=== PATIENT | female | born 1990 | race Caucasian/White ===

== ENCOUNTER 2018-08-04 18:10 | Outpatient (CLI) | payer MEDICAID, SELFPAY ==
[2018-08-04 19:51] VITALS: BMI 29.7
--- NOTE | 2018-08-05 03:23 | OB.TRI.NOTE ---
- Problem List (1) Irregular contractions Status: Acute (2) False labor after 37 completed weeks of gestation Status: Acute History of Present Illness Date of Service: 08/04/18 Was patient seen by the physician?: Yes Reason For Visit: RULE OUT Date of Service: 08/04/18 Final YOLY Source: LMP Gestational age: 38w0d History of Present Illness: 28 year ol at 38w0d, EDD110/18/17 Presented to L&D with uterine contractions that started this am after office visit. Membranes stripped during visit at 1030 am and contractions have become stronger since that time. Denies any LOF or vaginal bleeding. Good movement. Allergies amoxicillin [Amoxicillin] Allergy (Verified 08/04/18 19:58) Hives Cephalosporins Allergy (Verified 04/11/15 15:10) Itching loratadine [From Claritin] Allergy (Verified 08/04/18 19:58) Rash Penicillins Allergy (Verified 08/04/18 19:58) Hives Physical Exam Estimated gestational size: Appropriate for gestational size Presentation: Cephalic Cervix Dilation (cm): 4.5 Station: -1 Effacement (%): 50 NST - FHR Rate Baby A Baseline: 140 Variability:: Moderate Accelerations:: 15 x 15 Decelerations:: None NST Reactive:: Yes Uterine Activity:: Every 5-10 minutes, irregular, mild to palpation.
== END 2018-08-04 20:05 | disposition home or self-care (01) ==
LOC: WPOUT 19:11 → WP 19:25
PROVIDERS: Family Provider Internal Medicine; PCP Internal Medicine; Referring Provider Advanced Practice Midwife; Visit Provider Advanced Practice Midwife
DX: O47.1 False labor at or after 37 completed weeks of gestation (principal); Z3A.37 37 weeks gestation of pregnancy
CPT/HCPCS: 59025; 59050; 99218; G0378

== ENCOUNTER 2018-08-05 10:10 | Inpatient (IN) | payer MEDICAID, SELFPAY ==
[2018-08-05 10:23] VITALS: BMI 28.5
[2018-08-05] MEDS: Lactated Ringers 1,000 ML 50 ML IV ×2 (10:45→11:49)
[2018-08-05 10:50] LABS: Hematocrit 38.3 % (37-47); Hemoglobin 12.7 g/dl (12.0-15.0); Mean Corp Hgb Conc 33.2 g/gl (32-36); Mean Corpuscular Hgb 28.3 pg (27.0-32.0); Mean Corpuscular Volume 85.3 fL (81-99); Mean Platelet Vol. 10.1 fl (6.2-12.0); Platelet Count 298 K/mm3 (150-450); RBC Distribution Width CV 14.6 % (11.6-14.6); RBC Distribution Width SD 44.3 fl (35.1-43.9); Red Blood Count 4.49 M/mm3 (4.2-5.4); Scan Indicated on CBC? Y/N NO; White Blood Count 12.6 K/mm3 (4.4-11.0)
[2018-08-05] MEDS: Oxytocin 30 units/NS 500 ml 30 UNITS/500 ML IV.SOLN IV (11:37)
[2018-08-05] MEDS: fentaNYL-bupivacaine (epidural) 100 ML BAG EPIDURAL (12:31)
--- NOTE | 2018-08-05 13:03 | PCM.HP.OB ---
- Problem List (1) Irregular contractions Status: Acute (2) IUGR (intrauterine growth restriction) Status: Acute History Date of Admission: 04/10/15 Final YOLY: 08/18/18 Final YOLY Source: LMP Gestational age: 38 Weeks and 1 Days History of this : This is a 28 year-old, @ 38.1 wks c/o contractions - more intense- denies vaginal bleeding or LOF. pt has h/o IUGR < 5% most recent EFW 4lb 11oz on 07/20/18. Pt has had NSTs weekly and BPP weekly- reassuring status. Last BPP showed MARTÍN 6cm- recommendation by M Dr. Benoit for Delivery between 38-39 weeks. Pt in early labor but plan to keep her for augmentation with pitocin and AROM. Allergies amoxicillin [Amoxicillin] Allergy (Verified 08/04/18 19:58) Hives Cephalosporins Allergy (Verified 04/11/15 15:10) Itching loratadine [From Claritin] Allergy (Verified 08/04/18 19:58) Rash Penicillins Allergy (Verified 08/04/18 19:58) Hives Home Medications: Home Medications Vits [Prenatabs FA] 1 tablet PO DAILY 03/29/15 Famotidine [Pepcid] 20 mg PO DAILY 08/04/18 Fluoxetine [Prozac] 10 mg PO DAILY 08/04/18 busPIRone [Buspar] 5 mg PO DAILY 08/04/18 Smoking Status: Never smoker Alcohol: None Number of Fetus(es): 1 Heart Tracin mod pee, + accels no decels. - reactive category 1 TOCO Analysis: q2-4 History Past Pregnancies: Past Pregnancies Delivery Date Name GA/Weeks Outcome Route Weight Infant Gender Labor Length Anesthesia Delivery Location Provider FOB Labs: GBS neg, A+, RUB imm, Syphilis neg, HEP B neg, HIV neg, Expected Infant Delivery Method: Spontaneous Vaginal Review of Systems Constitutional: Denies: Anorexia Cardiovascular: Denies: Chest Pain Respiratory: Denies: Cough Gastrointestinal: Reports: - - contractions Physical Exam General: Alert, Oriented x3 Abdomen: Soft, Non Tender, Gravid Neurological: Cranial nerves II-XII grossly intact Estimated gestational size: Small for gestational age Presentation: Cephalic Cervix Dilation (cm): 5.5 Station: -2 Effacement (%): 75 Assessment/Plan All Active Problems Irregular contractions (Acute) False labor after 37 completed weeks of gestation (Acute) IUGR (intrauterine growth restriction) (Acute) This is a 28 year-old, G 5P4 @ 38.1 wks IUGR, MARTÍN 6cm- in early labor- plan for Augmentation with pitocin and arom. 1) admit to L&D 2) monitor FHR/toco 3) IUPC 4) Pitocin 5) epidural for pain mgmt 6) anticipate
[2018-08-05] MEDS: Ondansetron 4 MG/2 ML Vial IV (13:31)
--- NOTE | 2018-08-05 14:17 | PLAC_PTH ---
PATIENT: SANFORD SIN LOC: [facility] U#:[id number] AGE/SX: 28/ ROOM: WP010 RE08/05/[address]: Dr. Cammy Bush, MDDOB: 1990 BED: 1 DIS: 08/07/2018 SPEC #: [id number] RECD: 08/05/18 14:59 STATUS: RADHIKA SERGEY #: [id number] MADDY: 08/05/18 14:[address]: Cammy Bush DEPT: SURGICAL PATHOLOGY RECD BY: Sterling Dubon ENTERED: 08/07/18 10:07 SP TYPE: PLACENTA OTHR DR: Dr. Karlee Pack MD Tissues: Placenta, NOS Procedures: Surgery Specimen Level V HEADER OPERATION: Vaginal delivery PRE-OP DIAGNOSIS: Vaginal delivery TISSUE SUBMITTED: Placenta MICROSCOPIC DIAGNOSIS Placenta: Placental disc - third trimester placenta (224 gm). - Focal area of intraparenchymal hemorrhage and infarction (6 cm in greatest dimension). - Focal area of intraparenchymal hemorrhage (0.5 cm in greatest dimension). Membranes - acute chorioamnionitis. Umbilical cord - three blood vessels and no pathologic diagnosis. SJ:matilde 08/08/18 MICROSCOPIC DESCRIPTION Slides are reviewed. GROSS DESCRIPTION SPECIMEN: PLACENTA / CLINICAL INFORMATION: A. Weight: 2.029 kg B. Gestational Age: 38 weeks C. Sex: Female PLACENTAL WEIGHT (POST FIXATION): 224 gm PLACENTAL DIMENSIONS: 12 x 10 x 3 cm PLACENTAL SHAPE: Usual ovoid PLACENTAL WEIGHT FOR GESTATIONAL AGE: <10th percentile MEMBRANES - Present A. Insertion: Marginal B. Site of rupture from edge: 7 cm from edge of placental disc C. Color of membrane: Mccloud-espinoza D. Abnormalities: None UMBILICAL CORD - Present A. Color: Mccloud-espinoza B. Insertion: Paracentral C. Length: 20 cm D. Diameter: 1 cm E. Number of vessels: Three F. Abnormalities: None PLACENTAL DISC - Present A. Color of surface: Mccloud-espinoza B. surface abnormalities: None C. Maternal cotyledons: Intact with minimal tears D. Attached retro placental clot: No clot E. Cut surface: Dark red and spongy F. Lesions: Sections reveal a mccloud, indurated area measuring 6 x 2.5 x 1.5 cm and one smaller mccloud, indurated area measuring 0.5 cm in greatest dimension. G. Separate clot: Absent SECTIONS SUBMITTED: 1. Membrane roll 2. Cord, maternal end, larger lesion 3. Cord, end, larger lesion 4. Placental disc, and maternal surfaces, larger lesion 5. Placental disc, and maternal surfaces, smaller lesion 6. Placental disc, and maternal surfaces IRWIN:matilde 08/07/18 TC:2 CPT: 48759
[2018-08-05] MEDS: Oxytocin 30 units/NS 500 ml 30 UNITS/500 ML IV.SOLN 334 UNITS IV (14:20)
--- NOTE | 2018-08-05 14:28 | PCM.OB.VAG ---
- Problem List (1) Irregular contractions Status: Acute (2) IUGR (intrauterine growth restriction) Status: Acute Vaginal Delivery Maternal Presentation: - - early labor- augmentation with pitocin and AROM Medical Reason for Induction: - - IUGR, MARTÍN 6cm Amniotic Membrane Rupture Type: Artificial Amniotic Fluid Description: Clear - scant fluid Final YOLY: 08/18/18 Gestational age: 38 Weeks and 1 Days Date of Procedure: 08/05/18 Pre-Operative Diagnosis: IUGR, Term gestation Post-Operative Diagnosis: same, Live female Surgery/ Procedure Performed: Spontaneous Vaginal Delivery Type of Anesthesia: Epidural Description of Procedure: of live female - born without complications. Delayed cord clamping performed. At time of delivery soft swelling noted on infant left lower back near sacrum, anus present but there is a dimple noted cephalid to that. PEDS asked to come for initial evaluation- will contact NICU at [facility] for further suggestions. Presentation: Vertex Placental Delivery Description: Spontaneous - placenta small- intact Placenta Disposition: Routine to Lab Cord Vessel Description: 3 Vessels Nuchal Cord Compression: Without compression Cord Entanglement: None Drain: Maldonado to straight drain Estimated Blood Loss: 100 A gender: Female (1 minute): 9 (5 minute): 9 Episiotomy Description: None Laceration: None Medications given after delivery: IV Pitocin Complications: None
[2018-08-05] MEDS: Oxytocin 30 units/NS 500 ml 30 UNITS/500 ML IV.SOLN 167 UNITS IV (14:50)
[2018-08-05] MEDS: Acetaminophen 500 MG Tablet 1000 MG PO (18:04)
[2018-08-05 20:30] VITALS: BP 117/74; PULSE 75; RESP 16; TEMP 37.1
[2018-08-05] MEDS: Ibuprofen 600 MG Tablet PO (22:46)
[2018-08-06 01:00] VITALS: BP 108/57; PULSE 79; RESP 16; TEMP 36.3
[2018-08-06 04:30] VITALS: BP 109/65; PULSE 73; RESP 16; TEMP 36.6
[2018-08-06 08:10] VITALS: BP 112/80; PULSE 100; RESP 18; TEMP 36.4
--- NOTE | 2018-08-06 08:16 | PCM.PN.OB ---
Patient Problems: Active and Suspected Problems IUGR (intrauterine growth restriction) (Acute) Subjective: pt seen at bedside, doing well. pt reports good pain control. lochia mild. has heartburn- requesting pepcid again. - Physical Exam General: Alert, Oriented x3 Abdomen: Soft, Non Tender, - - fundus firm Vital Signs Temp Pulse Resp BP 97.8 F 73 16 109/65 08/06/18 04:30 08/06/18 04:30 08/06/18 04:30 08/06/18 04:30 Weight: 70.76 kg Body Mass Index (BMI) 28.5 Intake and Output for Last 24 Hours 08/04/18 08/05/18 08/06/18 23:59 23:59 23:59 Intake Total 2071 / 2071 Output Total 1050 / 1050 500 / 500 Balance 1022 / 1022 -500 / -500 Laboratory Tests Past 24 Hrs 08/05/18 08/05/18 10:35 10:35 WBC 12.6 H RBC 4.49 Hgb 12.7 Hct 38.3 MCV 85.3 MCH 28.3 MCHC 33.2 RDW 14.6 RDW Differential 44.3 H Plt Count 298 MPV 10.1 Blood Type A POSITIVE Antibody Screen NEGATIVE Medical Necessity - Tobacco Use Smoking Status: Never smoker Assessment/Plan All Active Problems Irregular contractions (Acute) False labor after 37 completed weeks of gestation (Acute) IUGR (intrauterine growth restriction) (Acute) PPD#1, doing well 1) baby in [facility] for low blood sugars. infant will be transfered to [facility] for swelling in Lower back once mom is discharged. reviewed will discharge mom tomorrow and possible hotel if needed. 2) routine care 3) pain mgmt 4) buspirone ordered per patient request 5) Pepcid
[2018-08-06] MEDS: Ibuprofen 600 MG Tablet PO (08:17)
--- NOTE | 2018-08-06 08:19 | PN.OBGYN_ITS ---
Patient Problems: Active and Suspected Problems IUGR (intrauterine growth restriction) (Acute) Subjective: pt seen at bedside, doing well. pt reports good pain control. lochia mild. has heartburn- requesting pepcid again. - Physical Exam General: Alert, Oriented x3 Abdomen: Soft, Non Tender, - - fundus firm Vital Signs Temp Pulse Resp BP 97.8 F 73 16 109/65 08/06/18 04:30 08/06/18 04:30 08/06/18 04:30 08/06/18 04:30 Weight: 70.76 kg Body Mass Index (BMI) 28.5 Intake and Output for Last 24 Hours 08/04/18 08/05/18 08/06/18 23:59 23:59 23:59 Intake Total 2071 / 2071 Output Total 1050 / 1050 500 / 500 Balance 1022 / 1022 -500 / -500 Laboratory Tests Past 24 Hrs 08/05/18 08/05/18 10:35 10:35 WBC 12.6 H RBC 4.49 Hgb 12.7 Hct 38.3 MCV 85.3 MCH 28.3 MCHC 33.2 RDW 14.6 RDW Differential 44.3 H Plt Count 298 MPV 10.1 Blood Type A POSITIVE Antibody Screen NEGATIVE Medical Necessity - Tobacco Use Smoking Status: Never smoker Assessment/Plan All Active Problems Irregular contractions (Acute) False labor after 37 completed weeks of gestation (Acute) IUGR (intrauterine growth restriction) (Acute) PPD#1, doing well 1) baby in [facility] for low blood sugars. infant will be transfered to [facility] for swelling in Lower back once mom is discharged. arelis andrews will discharge mom tomorrow and possible hotel if needed. 2) routine care 3) pain mgmt 4) buspirone ordered per patient request 5) Pepcid
--- NOTE | 2018-08-06 08:21 | DCINST_ITS ---
Discharge Diet: No Restrictions Discharge Activity: Return to Normal Activity, May not drive while taking narcotic pain medications., May Shower May resume sexual activity in: 4-6 weeks Additional Activity Instructions:: Nothing in the vagina for 4-6 weeks. You may return to work/school in 6 weeks. Call your doctor if your incision/area has: Continuous Slow Oozing, Sudden Increased Bleeding, Increased Pain/ Swelling, Increased Redness, Foul Smelling Discharge Additional Instructions: If you experience any of the following, contact your healthcare provider. * Bleeding that soaks a pad every hour for 2 hours * Fever 100.4 or higher * Unrelieved incision or abdominal pain * Swelling, redness, discharge or bleeding from your incision or episiotomy site * Your incision begins to separate * Problems urinating (including inability to urinate or burning while urinating). * Visual changes * Severe headache * Flu-like symptoms * Pain or redness in one of both of your breasts * Pain, warmth, tenderness or swelling in your legs, especially the calf area * Frequent nausea and vomiting * Symptoms of depression or anxiety If you experience any of the following, call 911 or go to the nearest Emergency Room. * Chest pain * Problems breathing * Seizure activity * Partial or complete paralysis of a body part, slurred speech, weakness or drooping of the face, or a sudden inability to walk or hold your balance Allergies/Adverse Reactions: Allergies amoxicillin [Amoxicillin] Allergy (Verified 08/04/18 19:58) Hives Cephalosporins Allergy (Verified 04/11/15 15:10) Itching loratadine [From Claritin] Allergy (Verified 08/04/18 19:58) Rash Penicillins Allergy (Verified 08/04/18 19:58) Hives Medications to take at Discharge Vits [Prenatabs FA ] 1 tablet PO DAILY 03/29/15 Famotidine [Pepcid] 20 mg PO DAILY 08/04/18 Fluoxetine [Prozac] 10 mg PO DAILY 08/04/18 busPIRone [Buspar] 5 mg PO DAILY 08/04/18 Famotidine [Pepcid] 20 mg PO BID tablet 08/06/18 Fluoxetine [Prozac] 10 mg PO DAILY capsule 08/06/18 Ibuprofen 600 mg PO 4X/DAY PRN PRN #30 tablet 08/06/18 busPIRone [Buspar] 5 mg PO TID PRN PRN tablet 08/06/18 The following prescriptions were given: Ibuprofen 600 mg PO 4X/DAY PRN PRN #30 tablet PRN Reason: Pain When: Call to make an appointment with your doctor in 6 weeks. If you had elevated Blood Pressure or 4th degree laceration you will need to be seen in 2 weeks. Primary Care Physician: Karlee Pack MD [Primary Care Provider] - Test Results: Test results from this visit will be discussed in further detail at your follow- up appointment, if applicable.
[2018-08-06] MEDS: FLUoxetine 10 MG Capsule PO (10:29)
[2018-08-06] MEDS: Famotidine 20 MG Tablet PO (10:30)
[2018-08-06] MEDS: busPIRone 5 MG Tablet PO (10:30)
[2018-08-06] MEDS: Acetaminophen 500 MG Tablet 1000 MG PO (10:34)
[2018-08-06 13:20] VITALS: BP 122/85; PULSE 80; RESP 18; TEMP 36.5
[2018-08-06 18:48] VITALS: BP 122/85; PULSE 80; RESP 18; TEMP 36.6
[2018-08-06 20:07] VITALS: BP 110/73; PULSE 89; RESP 16; TEMP 36.4; O2SAT 98
[2018-08-07] MEDS: Famotidine 20 MG Tablet PO ×2 (00:30→10:30)
[2018-08-07 00:36] VITALS: BP 116/70; PULSE 84; RESP 17; TEMP 36.5; O2SAT 98
[2018-08-07 04:22] VITALS: BP 104/63; PULSE 82; RESP 17; TEMP 36.9; O2SAT 97
[2018-08-07] MEDS: Ibuprofen 600 MG Tablet PO (04:26)
[2018-08-07 08:25] VITALS: BP 117/72; PULSE 68; RESP 16; TEMP 37.1; O2SAT 97
[2018-08-07] MEDS: FLUoxetine 10 MG Capsule PO (10:30)
--- NOTE | 2018-08-07 12:39 | PCM.PN.OB ---
Patient Problems: Active and Suspected Problems IUGR (intrauterine growth restriction) (Acute) Subjective: Doing well per patient and nursing staff. Ambulating and taking PO without difficulty. Voiding and passing flatus. Baby in SCN, and providing supplemental feedings due to low BS. Unsure of baby transfer at this time. Patient denies any increased vaginal bleeding or clots, pain, chest pain, shortness of breath or leg pain. Having lower back pain at epidural site, using heating pad. Planning to go to hotel status. - Physical Exam General: Alert, Oriented x3, Cooperative HEENT: Atraumatic, Normocephalic Lungs: Clear to auscultation, Normal air movement, No rhonchi, No wheeze Cardiovascular: Regular rate, Regular Rhythm, No murmurs Abdomen: Bowel Sounds Present, Soft, - - appropriately tender. Fundus firm 2 below U Extremities: No edema, - - Dallas's negative bilaterally Psych/Mental Status: Normal Affect, Appropriate Vital Signs Temp Pulse Resp BP Pulse Ox 98.8 F 68 16 117/72 97 08/07/18 08:25 08/07/18 08:25 08/07/18 08:25 08/07/18 08:25 08/07/18 08:25 Oxygen Delivery Method Room Air Weight: 156 lb Body Mass Index (BMI) 28.5 Intake and Output for Last 24 Hours 08/05/18 08/06/18 08/07/18 23:59 23:59 23:59 Intake Total 2071 / 2071 Output Total 1050 / 1050 500 / 500 Balance 1022 / 1022 -500 / -500 Medical Necessity - Tobacco Use Smoking Status: Never smoker Assessment/Plan All Active Problems Irregular contractions (Acute) False labor after 37 completed weeks of gestation (Acute) IUGR (intrauterine growth restriction) (Acute) A: PPD #2 P: 1)Awaiting U/S of and possible transfer to [facility] for care. 2)Will discharge patient to [facility] status at this time. 3)Motrin for pain. 4) Follow up in 6 weeks for visit. Routine PP and instructions given.
--- NOTE | 2018-08-07 12:43 | PN.OBGYN_ITS ---
Patient Problems: Active and Suspected Problems IUGR (intrauterine growth restriction) (Acute) Subjective: Doing well per patient and nursing staff. Ambulating and taking PO without difficulty. Voiding and passing flatus. Baby in SCN, and providing supplemental feedings due to low BS. Unsure of baby transfer at this time. Patient denies any increased vaginal bleeding or clots, pain, chest pain, shortness of breath or leg pain. Having lower back pain at epidural site, using heating pad. Planning to go to hotel status. - Physical Exam General: Alert, Oriented x3, Cooperative HEENT: Atraumatic, Normocephalic Lungs: Clear to auscultation, Normal air movement, No rhonchi, No wheeze Cardiovascular: Regular rate, Regular Rhythm, No murmurs Abdomen: Bowel Sounds Present, Soft, - - appropriately tender. Fundus firm 2 below U Extremities: No edema, - - Dallas's negative bilaterally Psych/Mental Status: Normal Affect, Appropriate Vital Signs Temp Pulse Resp BP Pulse Ox 98.8 F 68 16 117/72 97 08/07/18 08:25 08/07/18 08:25 08/07/18 08:25 08/07/18 08:25 08/07/18 08:25 Oxygen Delivery Method Room Air Weight: 156 lb Body Mass Index (BMI) 28.5 Intake and Output for Last 24 Hours 08/05/18 08/06/18 08/07/18 23:59 23:59 23:59 Intake Total 2071 / 2071 Output Total 1050 / 1050 500 / 500 Balance 1022 / 1022 -500 / -500 Medical Necessity - Tobacco Use Smoking Status: Never smoker Assessment/Plan All Active Problems Irregular contractions (Acute) False labor after 37 completed weeks of gestation (Acute) IUGR (intrauterine growth restriction) (Acute) A: PPD #2 P: 1)Awaiting U/S of and possible transfer to [facility] for care. 2)Will discharge [facility] to [facility] status at this time. 3)Motrin for pain. 4) Follow up in 6 weeks for visit. Routine PP and instructions given.
[2018-08-07 13:48] VITALS: BP 121/81; PULSE 107; RESP 16; TEMP 36.9; O2SAT 98
--- NOTE | 2018-08-08 14:30 | CASEMGMT ---
Social Work Note Labor and Delivery Unit Date of Referral: 08/05/2018 Time of Referral: 1739 Date of Intervention: 08/08/2018 Time of Intervention: 1430 Referred by: Dr. Bush Reason for Referral: Maternal history of depression, depression and anxiety History obtained from: Medical record, mother of baby (MOB) and father of baby (FOB). Educated that as this job specification writer is the social science manager for hospital of delivery labor and delivery unit for continuity of care of families while on the SCN this job specification writer is the assigned social science manager to the [facility] Household composition: MOB Rhonda Trinidad, FOB Matt Trinidad, and 4 older children. Intend to take baby to this home as well. It is reported that home situation is safe and adequate. Patient's parent/guardian status: MOB is age 28 and FOB is 28, are for 11 years now, but were for several years (resulting in MOB delivering three kids). FOB is the biological father to the oldest and youngest. MOB reports FOB is hoping to adopt the other children. MOB reconciled with FOB about 3.5 to 4 years ago. Did speak with MOB privately, and MOB denies any form of abuse in relationship. Minor Children: Carlos Trinidad, born 8.6.2008 Ayesha Caro, born 2010 Ly Caro, born 08/2013 William Caro, born 7.3.2014 , Brittani Trinidad, born 08.05.2018. Medical History: MOB is G5, P4 to 5 after delivering Brittani. care started at 6 weeks and adequate thereafter. Baby born at 38.1 weeks, reported to be IUGR during . Weighing 4 pounds 8 ounces at delivery. Apgars 9 and 9 at 1 and 5 minutes of life. Educational Status: MOB completed high school, denies issues with reading, writing, or learning comprehension. 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 FOB works as a computer numerical control machinist. Supplies: MOB reports to have needed baby supplies including bassinet, car seat, clothing, diapers, wipes, and getting a breast pump with plan to provide baby breast milk. Childcare/Caregiver(s): MOB and FOB. Transportation: NO reported issues. Programs/Agencies Involved: MOB reports to have services through S, to have WIC, and [facility] Housing subsidy. MOB had history of [facility], not interested in a new referral. MOB denies any history of children services involvement presently or in the past. Behavioral Health Issues: MOB with history of depression, anxiety, and depression. MOB denies any history of suicidal or homicidal ideation, plans, or attempts. MOB reports history of treatment with Buspar and Prozac and plans to continue on this after discharge home. MOB reports history of counseling with Anjelica at [facility]. MOB denies any history of illicit drug use or abuse, drug screen prenatally on 12-26-17 was negative. No use of tobacco reported. Family Stressors: Baby in SCN. No other identified stressors reported or disclosed at this time, other than FOB wanting to adopt the children not biologically his. Support Systems: FOB, MOB's brother, a [id number], MOB's mother and FOB's mother. MOB reports to have help at home going. Assessment MOB and FOB both cooperative with social work visit. FOB left room willingly when social science manager asked for a few minutes with MOB. MOB held good eye contact, mood and affect appropriate and congruent. MOB reports positive feelings for baby, to have needed supplies, denies any issues with home going. Denies nay safety concerns with FOB in the home. MOB reports familiarity with community resources. MOB also aware of depression risk and willingness to remain on antidepressants due to history of depression. Plan MOB and baby to home when ready for discharge. depression packet provided to MOB, including counseling options if needed [facility] community resource packet provided. Response to Plan: MOB does express understanding of proposed plan. Denies other needs. -SEKOU Byrne, ASPARAGUS BUNCHER
[2018-08-08 14:43] LABS: Pathology Specimen OB SEE PATHOLOGY REPORT
== END 2018-08-07 13:30 | disposition home or self-care (01) | DRG 560 ==
PROVIDERS: Admitting Provider Obstetrics & Gynecology; Family Provider Internal Medicine; PCP Internal Medicine; Referring Provider Obstetrics & Gynecology; Visit Provider Obstetrics & Gynecology
DX: O36.5930 Maternal care for other known or suspected poor fetal growth, third trimester, not applicable or unspecified (principal); O99.344 Other mental disorders complicating childbirth; F32.9 Major depressive disorder, single episode, unspecified; F41.9 Anxiety disorder, unspecified; K21.9 Gastro-esophageal reflux disease without esophagitis; Z79.899 Other long term (current) drug therapy; Z3A.37 37 weeks gestation of pregnancy; Z37.0 Single live birth
CPT/HCPCS: 59025; 59050; 85027; 86850; 86900; 88307; 99218; J7120; G0378; J2405

== ENCOUNTER 2018-09-14 06:01 | Day surgery (SDC) | payer BC, MEDICAID, SELFPAY ==
[2018-09-14] VITALS (7 sets, daily range): BP systolic 90–114; BP diastolic 55–78; PULSE 61–92; RESP 16–18; TEMP 36–36.8; O2SAT 96–98; BMI 27.6
[2018-09-14 06:22] LABS: Internal QC Validated? YES +Cl - CLEAR BKGD; Pregnancy, Urine Negative Negative
[2018-09-14 06:25] LABS: Hematocrit 39.4 % (37-47); Hemoglobin 12.9 g/dl (12.0-15.0); Mean Corp Hgb Conc 32.7 g/gl (32-36); Mean Corpuscular Volume 85.5 fL (81-99); Mean Platelet Vol. 9.2 fl (6.2-12.0); Platelet Count 256 K/mm3 (150-450); RBC Distribution Width CV 13.1 % (11.6-14.6); RBC Distribution Width SD 40.3 fl (35.1-43.9); Red Blood Count 4.61 M/mm3 (4.2-5.4); White Blood Count 5.7 K/mm3 (4.4-11.0)
[2018-09-14 06:26] LABS: Scan Indicated on CBC? Y/N NO
--- NOTE | 2018-09-14 07:30 | FALS_PTH ---
PATIENT: SANFORD SIN [place] [facility] U[place][id number] AGE/SX: 28/F ROOM: RE09/14/[address]: Dr. Cammy Bush, MDDOB: 1990 BED: DIS: 09/14/2018 SPEC #: [id number] RECD: 09/14/18 10:42 STATUS: RADHIKA REJose #: [id number] MADDY: 09/14/18 07:[address]: Cammy Bush DEPT: SURGICAL PATHOLOGY RECD BY: Sterling Dubon ENTERED: 09/14/18 11:15 SP TYPE: FALL TUBES OTHR DR: Dr. Karlee Pack MD Tissues: Fallopian tube Procedures: Surgery Specimen Level II HEADER OPERATION: Laparoscopic salpingectomy PRE-OP DIAGNOSIS: Desires sterilization TISSUE SUBMITTED: Bilateral fallopian tubes MICROSCOPIC DIAGNOSIS Bilateral fallopian tubes, salpingectomy: Bilateral fallopian tubes, no pathologic diagnosis. SJ:matilde 09/15/18 MICROSCOPIC DESCRIPTION Slides are reviewed. GROSS DESCRIPTION Received is one container labeled with the patient's name and designated bilateral fallopian tubes. The specimen consists of bilateral fallopian tubes measuring 7 cm in length and 0.6 cm in diameter and 5 cm in length and 0.5 cm in diameter. Fimbrial end is identified only in the larger fallopian tube. Sections do not reveal any mass lesion. The fallopian tubes are not identified as right or left. Sections reveal unremarkable cut surfaces. Sawmill Moulder Operator sections are submitted in two cassettes. Cassette 2 contains the smaller fallopian tube. / IRWIN:matilde 09/14/18 TC:4 CPT: 63365 x 2
[2018-09-14] MEDS: Bupivacaine Mpf 0.5% 30 ML VIAL (07:40)
--- NOTE | 2018-09-14 08:00 | OP.PCM_ITS ---
Report of Operation Date of Procedure: 09/14/18 Pre-Operative Diagnosis: DESIRES STERILIZATION Post-Operative Diagnosis: SAME Surgery/Procedure Performed:: LAPAROSCOPIC BILATERAL SALPINGECTOMY Type of Anesthesia:: General Special Medications: .5% MARCAINE Specimen's removed: BILATERAL FALLOPIAN TUBES Drains: NONE Estimated Blood Loss (mL): 5 Fluids Replaced: 650 Description of Procedure: Operative note: After informed consent was obtained patient was taken to the operating room she was placed in supine position she was given anesthesia. She was then placed in the [facility] stirru and she was prepped and draped in normal sterile fashion. Bladder was drained prior to the start of procedure approximately 50cc of clear yellow urine was expelled. At this time attention was turned to the vaginal portion where weighted speculum placed at posterior fornix vagina single-tooth tenaculum was used to gently grasp the internal the cervix. uterus was gently sounded to approximately 9cm. Uterine manipulator was placed without difficulty. Legs then placed in parallel with the abdomen the tenaculum and the weighted speculum were removed. 2 towel clamps were placed superior to umbilicus. After Marcaine was injected superior to umbilicus a small incision was made and a 5 mm trocar was placed under direct visualization. CO2 gas was used to insufflate the intra-abdominal cavity. Upon inspection no gross abnormalities uterus tubes and ovaries appeared to be normal. At this time then the LLQ and RLQ port were placed again Marcaine was injected small incision was made a knife and the 5 mm trocars placed. At this time then tubes were traced back to the fimbriated ends. Ligasure was used to coagulate and ligate along mesosalpinx bilaterally until tubes removed completely. Good hemostasis was appreciated. At this time procedure was deemed complete successful. The gas was desufflated on from the intra-abdominal cavity. The trochars were removed. Skin was closed using 4-0 Monocryl in a subcutaneous fashion. Dermabond glue was placed. Instrument lap and needle counts were correct ?2. The uterine manipulator was removed. Vaginal sweep was performed it was negative. There were no complications anticipated normal postoperative course for this patient. Grafts/Implants Used: none - Complications none - Admit VTE Documentation VTE Present on Admission: Yes VTE Mechan Device Prophylaxis: SCD's VTE Pharm Prophylaxis ordered?: No
--- NOTE | 2018-09-14 08:02 | DCINST_ITS ---
Discharge Diet: No Restrictions, - - Increase fluid intake for 48 hours. Discharge Activity: Return to Normal Activity, May Drive - when you are no longer taking narcotic pain medications., May Shower, May Take a Tub Bath - in 7 days., - - Ambulate often the next week after surgery. May shower in (days): 1 May resume sexual activity in: 2 weeks Lifting Restrictions: 20 Additional Activity Instructions:: Nothing in the vagina for the next 5 days. Call your doctor if your incision/area has: Continuous Slow Oozing, Sudden Increased Bleeding, Increased Pain/ Swelling, Increased Redness, Foul Smelling Discharge, Swelling at the incision site Call your doctor if you observe: Fever of 101 or Higher Cleanse incision/area with: Soap & Water, - - let soap and water run over incision sites and dab dry Allergies/Adverse Reactions: Allergies amoxicillin [Amoxicillin] Allergy (Verified 09/08/18 14:40) Hives Cephalosporins Allergy (Verified 09/08/18 14:40) Itching loratadine [From Claritin] Allergy (Verified 09/08/18 14:40) Rash Penicillins Allergy (Verified 09/08/18 14:40) Hives Medications to take at Discharge Vits [Prenatabs FA ] 1 tablet PO DAILY 03/29/15 Fluoxetine [Prozac] 10 mg PO DAILY 08/04/18 busPIRone [Buspar] 5 mg PO DAILY 08/04/18 Famotidine [Pepcid] 20 mg PO BID tablet 08/06/18 Ibuprofen 600 mg PO 4X/DAY PRN PRN #30 tablet 08/06/18 Primary Care Physician: Karlee Pack MD [Primary Care Provider] - Test Results: Test results from this visit will be discussed in further detail at your follow- up appointment, if applicable. Please Follow Up With: Cammy Bush MD When: 2 weeks post op as scheduled
[2018-09-14] MEDS: HYDROcodone Bitartrate/Apap 5/325 Tablet PO (09:05)
== END 2018-09-14 10:18 | disposition home or self-care (01) ==
LOC: SDC 06:04 → AC 06:04
PROVIDERS: Anesthesiology; Family Provider Internal Medicine; PCP Internal Medicine; Referring Provider Obstetrics & Gynecology; Visit Provider Obstetrics & Gynecology
PROC: (CPT 58661; principal; 2018-09-14 07:15)
DX: Z30.2 Encounter for sterilization (principal); J30.9 Allergic rhinitis, unspecified; K21.9 Gastro-esophageal reflux disease without esophagitis; F32.9 Major depressive disorder, single episode, unspecified; F41.9 Anxiety disorder, unspecified; Z79.899 Other long term (current) drug therapy; Z86.2 Personal history of diseases of the blood and blood-forming organs and certain disorders involving the immune mechanism
CPT/HCPCS: 58661; 36415; 81025; 85027; 88302; J7120; J2405

== ENCOUNTER 2019-05-26 20:24 | Emergency (ER) | payer MEDICAID, SELFPAY ==
[2018-09-14 06:29] VITALS: BMI 27.6
[2019-05-26 20:26] VITALS: BP 108/73; PULSE 95; RESP 14; TEMP 36.7; O2SAT 96; BMI 25.9
--- NOTE | 2019-05-26 20:30 | RAD_ITS ---
STUDY: X-RAY - LEFT FOOT CLINICAL: Female, 28 years old. Trauma TECHNIQUE: 3 view(s) of the foot. COMPARISON: None. FINDINGS: Normal talus, calcaneus, and tarsal bones. Normal visualized subtalar, talonavicular, calcaneocuboid, tarsal and tarsometatarsal articulations. Normal metatarsi. Normal metatarsophalangeal joint of the great toe. Normal tibial and fibular sesamoid bones. Normal interphalangeal joint of the great toe. Normal phalanges of the great toe. Normal second through fifth metatarsophalangeal joints. Normal interphalangeal joints and phalanges of the lesser toes. The soft tissue structures are unremarkable. There is no demonstrated fracture. RAD/Foot min 3 Views IMPRESSION: Normal x-ray examination of the foot. Electronically Signed: Fred Knutson MD at 21:18 EDT , Service support ,
--- NOTE | 2019-05-26 21:21 | ED.DCSUM_ITS ---
- ER Visit Summary Date of Service: 05/26/19 Chief Complaint: Left foot pain History of Present Illness: The patient is a [address] Pack. She reports that today she dropped a grocery bag full of canned goods on her left foot. She has a sharp pain 8/10 with walking 5-10 at rest. Denies any parest hesias. She denies any other injuries. Physical Examination: Vitals: Stable. Afebrile. General: Well-nourished and well-developed. Head: Normocephalic atraumatic. Neck: Supple, no lymphadenopathy. No JVD. Nontender. Cardiovascular: Regular rate and rhythm. No murmurs. Respiratory: No respiratory distress. Clear to auscultation bilaterally. Abdominal: Soft, nontender, nondistended, normal bowel sounds. No guarding, rebound, or peritoneal signs. Back: Nontender. Extremities: Contusion and soft tissue swelling over the lateral metatarsals of her left foot this area is moderately tender to palpation, no edema. Skin: Normal color, no rash. Neurologic: Alert and oriented ?3. Cranial nerves II through XII are intact. Normal strength and sensation. Psych: Normal affect. Test Results: X-rays negative. Emergency Department Course and Treatment: Patient was treated with Tylenol p.o. She is resting comfortably. She refused crutches or a postop shoe. Treatment Plan: Patient will be discharged instructions follow-up with her primary care physician 1 week if not improving. Return to the emergency department for any worsening symptoms. Disposition: To home in improved and stable condition. Impression: 1. Contusion left foot. This note was generated with [employer] dictation software. It may contain incorrect words, spelling, and punctuation that were not noted in review of the chart prior to signing ED Disposition - Plan for ED Patient: Disposition: Home or Assisted Living Instructions: CONTUSION, Foot Referrals: Karlee Pack MD [Primary Care Provider] - 1 Week if not improving
[2019-05-26] MEDS: Acetaminophen 325 MG Tablet 1000 MG PO (21:39)
== END 2019-05-26 21:41 | disposition home or self-care (01) ==
LOC: ED 21:32
PROVIDERS: Emergency Provider Emergency Medicine; Family Provider Internal Medicine; PCP Internal Medicine
DX: S90.32XA Contusion of left foot, initial encounter (principal); W20.8XXA Other cause of strike by thrown, projected or falling object, initial encounter; Y93.9 Activity, unspecified; Y92.9 Unspecified place or not applicable; Y99.9 Unspecified external cause status; K21.9 Gastro-esophageal reflux disease without esophagitis; Z79.899 Other long term (current) drug therapy
CPT/HCPCS: 73630; 99283

== ENCOUNTER → 2019-12-11 10:27 | Outpatient (REF) | payer MEDICAID, SELFPAY | LOC: HPRAD 10:27 | PROVIDERS: PCP Internal Medicine; Referring Provider Chiropractor; Visit Provider Chiropractor | DX: M99.03 Segmental and somatic dysfunction of lumbar region (principal) | CPT/HCPCS: 72110 ==

== ENCOUNTER → 2020-06-12 17:36 | Outpatient (CLI) | payer MEDICAID, SELFPAY | PROVIDERS: PCP Internal Medicine; Referring Provider Nurse Practitioner Family; Visit Provider Nurse Practitioner Family | DX: Z20.828 Contact with and (suspected) exposure to other viral communicable diseases (principal) | CPT/HCPCS: 87635; C9803; U0003 ==

== ENCOUNTER 2022-04-22 05:35 | Day surgery (SDC) | payer MEDICAID, SELFPAY ==
--- NOTE | 2022-04-16 11:04 | HP.PCM_ITS ---
History and Physical Date of Admission: 04/22/22 Pre-Op History and Physical ? HPI: The patient is a 31 year old female presenting for discussion regarding surgical intervention for AUB. Pt likely with Adenomyosis. Has h/o Salpingectomy. Has failed Oral Contraception and patch. Declines further intervention with Hormones. ? pre-operative visit. She is scheduled for LAVH, cystoscopy, for AUB, suspect adenomyosis on 04/22/22. Procedure discussed along with risks, benefits and complications. Other alternatives discussed for management. Consent form signed? Yes. ? ? PAST MEDICAL HISTORY PAST MEDICAL HISTORY Diagnosis Date ? Allergic rhinitis, cause unspecified ? ? Anemia ? ? WITH EVERY ? Depression 08/21/2014 ? HSIL (high grade squamous intraepithelial lesion) on Pap smear of cervix 10/11/13 ? Papanicolaou smear of cervix with low grade squamous intraepithelial lesion (LGSIL) 2011 ? PMH - PAST MEDICAL HISTORY OF 06/11 ? normal color vision ? PMH - PAST MEDICAL HISTORY OF ? collapsed lung at ? depression ? ? with last . 08/22/13 ? ? PAST SURGICAL HISTORY PAST SURGICAL HISTORY Procedure Laterality Date ? COLPOSCOPY ? 10/31/13 ? GOOD 2 ? INSERTION OF IUD ? 07/06/2011 ? mirenaAND REMOVAL ? LEEP PROCEDURE (UTILITY SYSTEM OPERATOR DEPT)_*FL ? 12/05/13 ? SALPINGECTOMY ? 09/14/2018 ? Laparoscopic Bilateral salpingectomy ? TONSILLECTOMY & ADENOIDECTOMY <AGE 11 ? age 9 ? ? ? CURRENT MEDICATIONS Current Outpatient Medications Medication Sig Dispense Refill ? fluticasone (FLONASE) 50 mcg/actuation nasal spray Use 2 Sprays in each nostril once daily. Rinse mouth after use. 16 g 2 ? cyclobenzaprine (FLEXERIL) 10 mg tablet Take 1 tablet by mouth three times daily as needed for muscle spasm. 15 tablet 0 ? busPIRone (BUSPAR) 5 mg tablet Take one tablet by mouth three times a day as needed for panic attacks 30 tablet 11 ? biotin 1 mg cap Take 1 capsule by mouth once daily. 90 capsule 3 ? Cholecalciferol, Vitamin D3, 25 mcg (1,000 unit) cap Take 1 capsule by mouth once daily. 90 capsule 3 ? ZAFEMY 150-35 mcg/24 hr patch APPLY ONE PATCH ONCE A WEEK DIRECTED 3 Patch 11 ? ibuprofen (MOTRIN) 600 mg tablet Take 1 tablet by mouth every 6 hours as needed. FOR PAIN. 30 tablet 0 ? albuterol HFA (PROVENTIL HFA, VENTOLIN HFA) 90 mcg/actuation inhaler Inhale 2 Puffs as instructed every 6 hours as needed for Wheezing/Shortness of Breath (persistent cough). 1 Inhaler 2 ? No current facility-administered medications for this visit. ? ? ALLERGIES: Penicillin G, Cephalosporins, and Claritin [Loratadine] ? PERSONAL HISTORY: SOCIAL HISTORY Social History ? Tobacco Use ? Smoking status: Never Smoker ? Smokeless tobacco: Never Used Vaping Use ? Vaping Use: Never used Substance Use Topics ? Alcohol use: No ? Drug use: No ? FAMILY HISTORY: FAMILY HISTORY FAMILY HISTORY Problem Relation Age of Onset ? Diabetes Maternal Grandmother ? ? Psychiatry Maternal Grandmother ? ? Stroke Maternal Grandmother ? ? Heart Maternal Grandfather ? ? later in life (age 79) ? other (cancer-intestines) Maternal Grandfather ? ? type unknown ? Diabetes Paternal Grandmother ? ? Lipids Mother ? ? Asthma Son ? ? Asthma Daughter ? ? Asthma Daughter ? ? Diabetes Maternal Aunt ? ? Asthma Son ? ? ? REVIEW OF SYMPTOMS: negative except as noted above PHYSICAL EXAMINATION: ? VITALS: Blood pressure 112/68, pulse 91, resp. rate 18, height 5' 2.21 (1.58 m), weight 149 lb 12.8 oz (67.9 kg), last menstrual period 04/08/2022, SpO2 96 %. ? GENERAL: The patient is well nourished, well hydrated in no acute distress. , The patient is oriented to time, place, and person. NECK: full range of motion GENITALIA: Normal external genitalia, Urethral meatus normal, Bladder nontender, normal vagina and normal vaginal tone, normal cervix, normal uterus, size and consistency, normal adnexa without masses or tenderness and perineum WNL WET PREP: Not indicated ? IMPRESSION: AUB, suspect adenomyosis ? PLAN: LAVH, Cystoscopy ? Pt has been counseled on risks/benefits and alternatives of surgery including but not limited to anesthesia, bleeding, infection, injury to pelvic structures including bowel, bladder, ureters and vessels. Pt wishes to proceed with surgery at this time. Possible blood transfusion reviewed. Reviewed cuff dehiscence ? Pre and post op instructions reviewed ? Post op meds ordered ? Pap today - had leep in 2013 normal since that time. ? I have reviewed and updated past medical and surgical history, medications and allergies Cammy Sweeney MD
[2022-04-19 12:34] LABS: Hematocrit 45.3 % (37-47); Hemoglobin 14.3 g/dL (12.0-15.0); Mean Corp Hgb Conc 31.6 g/dL (32-36); Mean Corpuscular Hgb 27.1 pg (27.0-32.0); Mean Corpuscular Volume 85.8 fL (81-99); Mean Platelet Vol. 9.4 fl (6.2-12.0); Platelet Count 353 K/mm3 (150-450); RBC Distribution Width CV 13.7 % (11.6-14.6); RBC Distribution Width SD 42.5 fl (35.1-43.9); Red Blood Count 5.28 M/mm3 (4.2-5.4); White Blood Count 6.7 K/mm3 (4.4-11.0)
[2022-04-19 12:49] LABS: Magnesium 2.1 mg/dL (1.6-2.6)
[2022-04-22] VITALS (15 sets, daily range): BP systolic 77–124; BP diastolic 50–72; PULSE 57–102; RESP 16–18; TEMP 36.1–37.1; O2SAT 90–100; BMI 28.3
[2022-04-22 06:22] LABS: Internal QC Validated? YES +Cl - CLEAR BKGD; Pregnancy, Urine Negative Negative
[2022-04-22] MEDS: Lactated Ringers 1,000 ML 40 ML IV ×2 (06:25→08:30)
[2022-04-22] MEDS: Scopolamine 1mg/72hr Patch 1 PATCH TD (06:28)
[2022-04-22] MEDS: Acetaminophen 500 MG Tablet 1000 MG PO (06:30)
[2022-04-22] MEDS: Celecoxib 200 MG Capsule 400 MG PO (06:30)
[2022-04-22] MEDS: Phenazopyridine 95 MG Tablet 190 MG PO (06:30)
[2022-04-22] MEDS: Gabapentin 600 MG Tablet PO (06:30)
[2022-04-22] MEDS: Enoxaparin 40 MG/0.4 ML Syringe SC (06:31)
[2022-04-22 06:35] LABS: Bedside Glucose 100 mg/dL (74-106)
[2022-04-22] MEDS: Clindamycin 900 MG/50 ML BAG 75 MG IV (07:23)
--- NOTE | 2022-04-22 07:30 | HYST_PTH ---
PATIENT: [place] S[place] [facility] [id number] AGE/SX: 31/F ROOM: RE04/22/[address]: Dr. Cammy Bush, MDDOB: 1990 BED: DIS: 04/22/2022 SPEC #: [id number] RECD: 04/22/22 11:48 STATUS: RADHIKA RINCON #: [id number] MADDY: 04/22/22 07:[address]: Cammy Bush DEPT: SURGICAL PATHOLOGY RECD BY: Ronna Nieves ENTERED: 04/22/22 12:44 SP TYPE: HYSTERECT OTHR DR: Dr. Karlee Pack MD Tissues: Uterus, NOS Procedures: Surgery Specimen Level V HEADER OPERATION: ERAS, laparoscopic vaginal hysterectomy, cystoscopy PRE-OP DIAGNOSIS: Abnormal uterine bleeding, suspect adenomyosis TISSUE SUBMITTED: Uterus, cervix MICROSCOPIC DIAGNOSIS Uterus, hysterectomy: Cervix ? chronic inflammation. Endometrium ? proliferative endometrium with mild chronic endometritis. Myometrium ? adenomyosis. AM:matilde 04/23/2022 MICROSCOPIC DESCRIPTION Slides are reviewed. GROSS DESCRIPTION Received in fixative is one container labeled with the patient's name and designated uterus, cervix. The specimen consists of a hysterectomy specimen consisting of uterus with cervix weighing 92 gm and measuring 8 x 7 x 4 cm. The serosal surface is mccloud, glistening. The ectocervical mucosa shows focal erosion. The external os is oval in contour. The endocervical canal measures 2.5 cm in length and the endocervical mucosa is mccloud, glistening and unremarkable. The triangular endometrial cavity measures 3.5 cm in length and up to 2.5 cm in width. The endometrium is congested without any mass lesion and measures 0.1 cm in thickness. Sections of the uterine wall reveal a mccloud nodular mass measuring 0.5 cm in greatest dimension. The uterine wall measures up to 2.5 cm in thickness. Spikemaking Supervisor sections are submitted in seven cassettes as follows: 1 - anterior cervix, 2 - posterior cervix, 3 & 4 - anterior uterine wall, 5 & 6 - posterior uterine wall, 7 ? nodular mass, entirely submitted. / IRWIN:matilde 04/22/2022 TC:5 CPT: 57179
[2022-04-22] MEDS: Bupivacaine 0.25% 30 ML Vial (07:50)
[2022-04-22] MEDS: Lidocaine 1% /Epi 1:100 (20ml) 20 ML Vial (08:20)
--- NOTE | 2022-04-22 08:49 | DCINST_ITS ---
Discharge Instructions Follow Up Care Test Results: Test results from this visit will be discussed in further detail at your follow- up appointment, if applicable. Discharge Plan Admission Attending Provider: Cammy Bush Primary Care Provider: Karlee Pack Discharge Orders/Prescriptions Prescriptions: No Action buspirone 5 MG tablet 5 mg PO TID PRN (Reason: Anxiety) fluoxetine [Prozac] 10 MG capsule 10 mg PO DAILY fluticasone propionate [Flonase] 50 mcg/actuation [place],Suspension 1 spray INTRANASAL DAILY Rx Instructions: administer into each nostril cholecalciferol (vitamin D3) [Vitamin D3] 25 mcg (1,000 unit) Capsule 25 mcg PO DAILY biotin 1 mg Capsule 1 mg PO DAILY Referrals / Follow Up: Karlee Pack MD [Primary Care Provider] - Disposition Disposition (needs filled in before D/C Order can be placed): Home, Self Care
--- NOTE | 2022-04-22 08:50 | DCINST_ITS ---
Discharge Instructions Diet Discharge Diet: No restrictions Activity Discharge Activity: May Not Drive (while taking narcotics. may drive when pain controlled. ) and May Shower Return to work on:: 04/30/21 May shower in (days): 1 May resume sexual activity in: 6-8 weeks Weight Bearing Status: Full weight bearing Lifting Restrictions: 20 Additional Activity Instructions:: NOTHING IN THE VAGINA x 6-8 weeks. Dressing / Incision Call your doctor if your incision/area has: Continuous Slow Oozing, Sudden Increased Bleeding, Increased Pain/ Swelling, Increased Redness, Foul Smelling Discharge and Swelling at the incision site Call your doctor if you observe: Fever of 101 or Higher, Inability to have a bowel movement, Using more than 1 pad per hour and Uncontrolled pain Change Dressing in: leave in place till F/U (you have skin glue over incision sites- do not pick off) Cleanse incision/area with: Soap & Water, Keep Dressing Clean & Dry and - (you may let soap and water run over incision sites and dab dry. ) Follow Up Care Please Follow Up With: Cammy Bush MD When: 2 weeks as scheduled for post op visit Test Results: Test results from this visit will be discussed in further detail at your follow- up appointment, if applicable. Discharge Plan Admission Attending Provider: Cammy Bush Primary Care Provider: Karlee Pack Discharge Orders/Prescriptions Prescriptions: Continued buspirone 5 MG tablet 5 mg PO TID PRN (Reason: Anxiety) fluoxetine [Prozac] 10 MG capsule 10 mg PO DAILY fluticasone propionate 50 mcg/actuation [place],Suspension 1 spray INTRANASAL DAILY Rx Instructions: administer into each nostril cholecalciferol (vitamin D3) [Vitamin D3] 25 mcg (1,000 unit) Capsule 25 mcg PO DAILY biotin 1 mg Capsule 1 mg PO DAILY Referrals / Follow Up: Karlee Pack MD [Primary Care Provider] - Disposition Disposition (needs filled in before D/C Order can be placed): Home, Self Care
--- NOTE | 2022-04-22 08:51 | OP.PCM_ITS ---
Report of Operation Date of Procedure: 04/22/22 Pre-Operative Diagnosis: AUB, suspect adenomyosis Post-Operative Diagnosis: same Surgery/Procedure Performed:: LAVH, Cystoscopy Description of Surgical Findings:: Previous Salpingectomy. Normal Ovaries. Normal Uterus. Surgeon: Cammy Bush sas etl developer: Марина Banks Type of Anesthesia: General and Local Special Medications: 0.25 marcaine and 1% lidocaine with Epinephrine Specimen's removed: Uterus, Cervix Drains: None Estimated Blood Loss (mL): 50 Fluids Replaced: 1500 Description of Procedure: Patient take to OR and prepped and draped in usual sterile fashion in dorsal lithotomy position with her arms tucked in a neurologically safe and neutral position. The uterus sounded to 8 cm. The [employer] uterine manipulator and howell were placed. Attention was turned to the abdomen. All port sites were infiltrated with .25% maracine before the incisions were made. The anterior abdominal wall was tented up with towel clamps and using a direct entry approach a 5 mm intraumbilical port was placed. Intraperitoneal placement was confirmed with the laparoscope and the pneumoperitoneum was created. The patient was placed in Trendelenburg and 5 mm right and left lower quadrant ports were placed under direct visualization. The bowel was swept away. Ovaries appeared normal. Ligasure was opened for procedure. The round ligaments were divided ligasure. The Uteroovarian ligaments were sealed and cut. The anterior peritoneum was dissected down to create the bladder flap with blunt dissection and the LigaSure. The uterine arteries were isolated, clamped, sealed and cut. There was minimal back bleeding from the uterus. Attention was turned to the vaginal portion of the case. The anterior vagina was infiltrated w/ lidocaine with epinephrine 10cc. An incision was made over the anterior vagina and the anterior colpotomy incision was made with blunt and sharp dissection. The lower vagina was clamped, transected and suture ligated. A second pedicle containing the peritoneum was secured with Allie clamps, cut and suture ligated. The uterus was brought through the anterior colpotomy incision and the uterosacral ligaments were clamped, cut and suture ligated. The pedicles were examined and were suture ligated. The specimen was handed off. The cuff was closed with interrupted 0-vicryl figure of 8 sutures. cystoscopy was performed- bladder intact and both ureters were seen Effluxing. The pneumoperitoneum was recreated and the cuff and pedicles were hemostatic. Jesusita placed on cuff and pedicles. The skin incisions were closed with skin glue and 4-0 monocryl. The vaginal sweep was completed by me. Grafts/Implants Used: none Grafts/Implants Used: none Procedure Start Time: 07:47 Procedure Stop Time: 08:51 Complications none Admit VTE Documentation VTE Mechan Device Prophylaxis: SCD's VTE Pharm Prophylaxis ordered?: Yes
[2022-04-22 09:50] LABS: Bedside Glucose 122 mg/dL (74-106)
[2022-04-22] MEDS: Lactated Ringers @ 70 MLS/HR 70 ML IV (09:51)
[2022-04-22] MEDS: Ondansetron 4 MG/2 ML Vial IV (11:08)
[2022-04-22 12:07] LABS: Hematocrit 38.5 % (37-47); Hemoglobin 12.2 g/dL (12.0-15.0); Mean Corp Hgb Conc 31.7 g/dL (32-36); Mean Corpuscular Hgb 26.8 pg (27.0-32.0); Mean Corpuscular Volume 84.6 fL (81-99); Mean Platelet Vol. 9.4 fl (6.2-12.0); Platelet Count 346 K/mm3 (150-450); RBC Distribution Width CV 13.5 % (11.6-14.6); RBC Distribution Width SD 41.9 fl (35.1-43.9); Red Blood Count 4.55 M/mm3 (4.2-5.4); White Blood Count 12.3 K/mm3 (4.4-11.0)
[2022-04-22] MEDS: HYDROmorphone 1 MG/ML Syringe IV (12:27)
== END 2022-04-22 15:35 | disposition home or self-care (01) ==
LOC: SDC 05:35 → AC 05:35
PROVIDERS: Anesthesiology; PCP Internal Medicine; Referring Provider Obstetrics & Gynecology; Visit Provider Obstetrics & Gynecology
PROC: 0UT9FZZ Resection of Uterus, Via Natural or Artificial Opening With Percutaneous Endoscopic Assistance (ICD-10-PCS; CPT 58550; principal; 2022-04-22 07:05)
DX: N80.0 Endometriosis of uterus (principal); N72 Inflammatory disease of cervix uteri; N71.1 Chronic inflammatory disease of uterus; F32.A Depression, unspecified; F41.9 Anxiety disorder, unspecified; Z79.899 Other long term (current) drug therapy
CPT/HCPCS: 58550; 52000; 36415; 81025; 82962; 83735; 85027; 86850; 86900; 86901; 88307; J7120; J1940; J2405; J3475

== ENCOUNTER 2022-12-02 18:20 | Emergency (ER) | payer MEDICAID, SELFPAY ==
[2022-12-02 18:21] VITALS: BP 113/77; PULSE 89; RESP 18; TEMP 36.9; O2SAT 98; BMI 28.5
--- NOTE | 2022-12-02 18:37 | EDS_ITS ---
HPI History of Present Illness Chief Complaint: Lower Extremity Injury Detail of Chief Complaint: Right foot injury Informant: patient Narrative Narrative: Patient presents the emergency department after injuring her right foot today. Patient states that she was coming down the steps when she twisted her foot causing her to fall and injure it. She had a hard time bearing weight secondary to pain. She denies any other injuries. [facility] Medical History (Updated 12/02/22 @ 18:[address] Ravin Bello, ) Anxiety and depression Bilateral headaches Cancer Environmental allergies Restless legs Wears glasses Home Medications buspirone 5 mg tablet 5 mg PO TID PRN Anxiety 08/04/18 [History Last Taken 08/04 08:00] fluoxetine 10 mg capsule (Prozac) 10 mg PO DAILY anxiety 08/04/18 [History Last Taken 08/04/18 08:00] biotin 1 mg capsule 1 mg PO DAILY 04/15/22 [History Last Taken Unknown] cholecalciferol (vitamin D3) 25 mcg (1,000 unit) capsule (Vitamin D3) 25 mcg PO DAILY 04/15/22 [History Last Taken Unknown] fluticasone propionate 50 mcg/actuation nasal spray,suspension 1 spray intranasal DAILY 04/15/22 [History Last Taken Unknown] Allergy/AdvReac Type Severity Reaction Status Date / Time amoxicillin [Amoxicillin] Allergy Anaphylaxis Verified 12/02/22 18:23 Cephalosporins Allergy Itching Verified 12/02/22 18:23 loratadine [From Claritin] Allergy Rash Verified 12/02/22 18:23 Penicillins Allergy Anaphylaxis Verified 12/02/22 18:23 Family History Other Asthma Cancer Surgical History History of tubal ligation Hx of adenoidectomy Hx of tonsillectomy Social History Smoking Status: Never smoker alcohol intake: never substance use type: does not use what type of physical activity do you participate in: none ROS ROS ED Review of Systems ROS Unobtainable: other Constitutional Constitutional ED: Reports lethargy; Denies chills, fever(s), sweats or weight loss Eyes Eyes: Denies blurry vision, change in vision or diplopia ENT ENT ED: Denies rhinorrhea or sore throat Cardiovascular Cardiovascular: Denies chest pain, orthopnea or racing heartbeat Respiratory/Chest Respiratory/Chest: Denies cough, dyspnea, dyspnea on exertion, orthopnea or sputum Gastrointestinal Gastrointestinal: Denies abdominal pain, diarrhea, nausea or vomiting Genitourinary Genitourinary ED: Denies dysuria, hematuria or urinary frequency Musculoskeletal Musculoskeletal: Reports other Details: Right foot pain/injury ; Denies arthralgias, back pain, myalgias or neck pain Integumentary Denies abscess, Abrasions or rash Neurologic Neurologic: Denies headache(s) or weakness Psychiatric Psychiatric: Denies anxiety, depression or suicidal thoughts Endocrine Endocrinology: Denies polydipsia, polyphagia or polyuria Hematologic/Lymphatic Hematologic/Lymphatic: Denies easy bleeding, easy bruising or lymphadenopathy Allergic/Immunologic Allergic/Immunologic ED: Denies mouth swelling, tongue swelling or urticaria EXAM Physical Exam Const Vital Signs: 12/02/22 18:21 Temperature 98.5 F Temperature Source Temporal Pulse Rate 89 Respiratory Rate 18 Blood Pressure 113/77 Blood Pressure Mean 89 Pulse Ox 98 Oxygen Delivery Method Room Air Positive well nourished and well developed General Appearance ED: well developed and NAD HEENT Reports TM's clear and moist mucous membranes normocephalic and atraumatic; Negative for trauma or tenderness Tympanic Membrane ED: Yes TM's clear Eyes PERRL and EOMs intact bilaterally General Eye ED: Negative for pale conjunctiva or scleral icterus Neck no lymphadenopathy, supple and no JVD General: Negative for tenderness Chest Wall inspection of chest normal and palpation of chest normal Chest: Negative for tenderness Resp normal respiratory effort and clear to auscultation bilaterally Effort and Inspection: Negative for respiratory distress or pain with movement Auscultation: Negative for rhonchi, wheezes or diminished lung sounds Cardio regular rate, regular rhythm, S1 normal heart sound, S2 normal heart sound and no murmurs Peripheral Pulses: pulses 2+ throughout GI normal to inspection, nondistended, normoactive bowel sounds, soft to palpation, non-tender, non-distended and no masses Back/Spine no CVA tenderness and no thoracic nor lumbar tenderness Extremity Extremity Narrative: Right foot-patient has diffuse tenderness over the heads of the fourth and fifth metatarsals with some faint ecchymosis and erythema noted. No pain at the proximal fibular head. No pain at the ankle. She is neurovascular intact. No obvious deformity. General Extremety ED: Negative for edema General Extremity: Negative for edema Neuro oriented x3, CN's II-XII intact bilaterally, no sensory deficits noted and gait normal Sensorium / Orientation: awake, alert, oriented to person, oriented to place and oriented to time Motor Exam: strength 5/5 throughout and strength abnormal Psych mental status grossly normal Skin no rashes or lesions noted and no wounds MDM MDM MDM Narrative Medical decision making narrative: Patient presented with a right foot injury and on my interpretation no evidence of fracture. I suspect likely sprain. Patient will be given Isaias wrap, postop shoe, and crutches. Patient advised to follow-up with primary care physician 5 to 7 days. She is to use ice and elevate it. Patient use ibuprofen or Tylenol for discomfort. Radiography Diagnostic Testing: Three-view x-rays of the right foot obtained interpreted by myself as no acute fractures or dislocations. Official report from radiology will be pending. Discharge Plan Triage Chief Complaint: Lower Extremity Injury ED Provider: Ravin Bello Dx/Rx/DC Orders Clinical Impression: Right foot sprain Instructions: ED Foot Sprain Prescriptions: No Action buspirone 5 MG tablet 5 mg PO TID PRN (Reason: Anxiety) fluoxetine [Prozac] 10 MG capsule 10 mg PO DAILY fluticasone propionate 50 mcg/actuation [place],Suspension 1 spray INTRANASAL DAILY Rx Instructions: administer into each nostril cholecalciferol (vitamin D3) [Vitamin D3] 25 mcg (1,000 unit) Capsule 25 mcg PO DAILY biotin 1 mg Capsule 1 mg PO DAILY Primary Care Provider: Karlee Pack Referrals: Karlee Pack MD [Primary Care Provider] - 5-7 Days Disposition Disposition: Home, Self Care
--- NOTE | 2022-12-02 18:40 | RAD_ITS ---
STUDY: X-RAY - RIGHT FOOT CLINICAL: Female, 32 years old. injury TECHNIQUE: 3 view(s) of the foot. COMPARISON: None. FINDINGS: Normal talus, calcaneus, and tarsal bones. Normal visualized subtalar, talonavicular, calcaneocuboid, tarsal and tarsometatarsal articulations. Normal metatarsi. Normal metatarsophalangeal joint of the great toe. Normal tibial and fibular sesamoid bones. Normal interphalangeal joint of the great toe. Normal phalanges of the great toe. Normal second through fifth metatarsophalangeal joints. Normal interphalangeal joints and phalanges of the lesser toes. The soft tissue structures are unremarkable. RAD/Foot min 3 Views IMPRESSION: Normal x-ray examination of the foot. Electronically Signed: Rohith Arreola MD at 18:52 EST ,
== END 2022-12-02 19:15 | disposition home or self-care (01) ==
PROVIDERS: Emergency Provider Emergency Medicine; PCP Internal Medicine; Visit Provider Emergency Medicine
DX: S93.601A Unspecified sprain of right foot, initial encounter (principal); F41.9 Anxiety disorder, unspecified; F32.A Depression, unspecified; G25.81 Restless legs syndrome; X50.1XXA Overexertion from prolonged static or awkward postures, initial encounter; Z79.899 Other long term (current) drug therapy
CPT/HCPCS: 73630; 99284

== ENCOUNTER 2023-11-30 21:19 | Emergency (ER) | payer MEDICAID, SELFPAY ==
[2023-11-30 21:20] VITALS: BP 114/75; PULSE 92; RESP 16; TEMP 35.8; O2SAT 99; BMI 27.3
--- NOTE | 2023-11-30 21:22 | RAD_ITS ---
STUDY: X-RAY - RIGHT ANKLE REASON FOR EXAM: Female, 33 years old. injury TECHNIQUE: 3 view(s) of the ankle. COMPARISON: None. FINDINGS: Normal visualized distal tibia and fibula. Normal medial and lateral malleoli. Normal tibiotalar articulation and ankle mortise. Normal visualized talus and calcaneus. The visualized subtalar, talonavicular, calcaneocuboid and tarsal articulations are normal. There is no demonstrated fracture. Minimal soft tissue swelling at the ankle. RAD/Ankle min 3 Views IMPRESSION: No acute fracture or subluxation seen. Electronically Signed: Lucero Fernandez MD at 21:54 EST ,
--- NOTE | 2023-11-30 22:47 | EDS_ITS ---
HPI History of Present Illness Chief Complaint: Lower Extremity Injury Narrative Narrative: 33-year-old female with right ankle pain. She rolled her ankle coming down the stairs. Denies hearing a pop or click. She is ambulatory with antalgic gait. Denies any numbness or tingling. Denies any knee pain. [facility] Medical History Anxiety and depression Bilateral headaches Cancer Environmental allergies Restless legs Wears glasses Home Medications buspirone 5 mg tablet 5 mg PO TID PRN Anxiety 08/04/18 [History Last Taken 08/04/18 08:00] fluoxetine 10 mg capsule (Prozac) 10 mg PO DAILY anxiety 08/04/18 [History Last Taken 08/04/18 08:00] biotin 1 mg capsule 1 mg PO DAILY 04/15/22 [History Last Taken Unknown] cholecalciferol (vitamin D3) 25 mcg (1,000 unit) capsule (Vitamin D3) 25 mcg PO DAILY 04/15/22 [History Last Taken Unknown] fluticasone propionate 50 mcg/actuation nasal spray,suspension 1 spray intranasal DAILY 04/15/22 [History Last Taken Unknown] Allergy/AdvReac Type Severity Reaction Status Date / Time amoxicillin [Amoxicillin] Allergy Anaphylaxis Verified 11/30/23 21:20 Cephalosporins Allergy Itching Verified 11/30/23 21:20 loratadine [From Claritin] Allergy Rash Verified 11/30/23 21:20 Penicillins Allergy Anaphylaxis Verified 11/30/23 21:20 Family History Other Asthma Cancer Surgical History History of tubal ligation Hx of adenoidectomy Hx of tonsillectomy Social History Smoking Status: Never smoker alcohol intake: never substance use type: does not use what type of physical activity do you participate in: none ROS ROS ED Constitutional Constitutional ED: Denies chills, fever(s) or sweats Eyes Eyes: Denies blurry vision or change in vision ENT ENT ED: Denies ear pain or sore throat Cardiovascular Cardiovascular: Denies chest pain, palpitations or racing heartbeat Respiratory/Chest Respiratory/Chest: Denies cough, dyspnea or sputum Gastrointestinal Gastrointestinal: Denies abdominal pain, constipation, diarrhea, nausea or vomiting Genitourinary Genitourinary ED: Denies dysuria, hematuria or urinary frequency Musculoskeletal Musculoskeletal: Reports other Details: Right ankle pain ; Denies arthralgias, myalgias or neck pain Integumentary Denies abscess, Abrasions or rash Neurologic Neurologic: Denies headache(s), paresthesias or weakness Psychiatric Psychiatric: Denies anxiety, depression, suicidal ideation or suicidal thoughts Endocrine Endocrinology: Denies polydipsia or polyuria EXAM Physical Exam Const Vital Signs: 11/30/23 21:20 Temperature 96.4 F L Temperature Source Temporal Pulse Rate 92 Respiratory Rate 16 Blood Pressure 114/75 Blood Pressure Mean 88 Pulse Ox 99 Oxygen Delivery Method Room Air Positive well nourished General Appearance ED: NAD HEENT Reports moist mucous membranes Chest Wall inspection of chest normal Resp normal respiratory effort and no retractions Cardio regular rate and regular rhythm Extremity Extremity Narrative: Mild tenderness to palpation over the right anterior talofibular ligaments. No tenderness over the medial or lateral malleoli. No proximal fibular tenderness. Right foot neurovascular intact prescription for all 10 toes. Strength 5/5 in ankle and foot. No pain at base of fifth metatarsal. No navicular pain. Neuro oriented x3 and CN's II-XII intact bilaterally Sensorium / Orientation: alert MDM MDM MDM Narrative Medical decision making narrative: Patient presenting with right ankle pain. She will to come downstairs. X-ray right ankle my interpretation shows no acute fracture or subluxation. Patient offered Tylenol ibuprofen which she declined states she has at home. She is placed in Aircast and Isaias wrap and denies crutches. Return precautions discussed. Impression: 1. Right ankle sprain Radiography Diagnostic Testing: Clinical Impression(s) from Imaging Studies Ankle X-Ray 11/30/23 21:22 IMPRESSION: No acute fracture or subluxation seen. Electronically Signed: Lucero Fernandez MD at 21:54 EST , Discharge Plan Triage Chief Complaint: Lower Extremity Injury ED Provider: Surinder Carlos Dx/Rx/DC Orders Instructions: ED Ankle Sprain (Adult) Prescriptions: No Action buspirone 5 MG tablet 5 mg PO TID PRN (Reason: Anxiety) fluoxetine [Prozac] 10 MG capsule 10 mg PO DAILY fluticasone propionate 50 mcg/actuation [place],Suspension 1 spray INTRANASAL DAILY Rx Instructions: administer into each nostril cholecalciferol (vitamin D3) [Vitamin D3] 25 mcg (1,000 unit) Capsule 25 mcg PO DAILY biotin 1 mg Capsule 1 mg PO DAILY Primary Care Provider: Karlee Pack Referrals: Karlee Pack MD [Primary Care Provider] - Disposition Disposition: Home, Self Care
--- OUTSIDE RECORDS SUMMARY | 2023-11-30 22:51 | XMS RPT_ITS | CCD ---
Author Name Unknown Address [address] [place] [address] Organization [facility] Care Team Providers Care [employer] Generator Assembler Name Role Phone Karlee Hooper MD Primary Care Provider GANTA, KARLEE Primary Care Unavailable DENBOW, JEFF Attending Unavailable GANTA, KARLEE Primary Care Unavailable DENBOW, JEFF Referring Unavailable GANTA, KARLEE Primary Care Unavailable DENBOW, JEFF Attending Unavailable GANTA, KARLEE Primary Care Unavailable GANTA, KARLEE Primary Care Unavailable ALEJANDRINA TINSLEY Attending Unavailable GANTA, KARLEE Primary Care Unavailable GANTA, KARLEE Primary Care Unavailable LUIS DANIEL, NEENA Referring Unavailable GANTA, KARLEE Primary Care Unavailable LUIS DANIEL, NEENA Referring Unavailable GANTA, KARLEE Primary Care Unavailable LUIS DANIEL, NEENA Attending Unavailable GANTA, KARLEE Primary Care Unavailable GANTA, KARLEE Primary Care Unavailable GANTA, KARLEE Primary Care Unavailable Karlee Hooper MD Primary Care Provider GANTA, KARLEE Primary Care Unavailable ALEJANDRINA TINSLEY Attending Unavailable ALEJANDRINA TINSLEY Admitting Unavailable Allergies Allergy Classification Reported Allergen(s) Allergy Type Date of Onset Reaction(s) Facility (7 sources) Cephalosporins (Antibiotic); Translations: [CEPHALOSPORINS] Propensity to adverse reactions 0 Swelling, Itching [facility] (20 sources) Loratadine; Translations: [LORATADINE] Drug Allergy 1 Rash [facility] Work Phone: (20 sources) Penicillin G; Translations: [PENICILLIN G] Drug Allergy 5 Hives [facility] Work Phone: (20 sources) Cephalosporins (Antibiotic) Propensity to adverse reactions [facility] Current Medications Medication Drug Class(es) Dates Sig (Normalized) Sig (Original) acetaminophen 325 mg / oxyCODONE hydrochloride 5 mg oral tablet (5 sources) Opioid Agonist Start: 04-14-2022 End: 06-10-2022 take 1 tablet by mouth four times daily as needed for pain oxyCODONE-acetamino phen (PERCOCET) 5-325 mg tablet Indications: Post-operative pain Take 1 tablet by mouth four times daily as needed for pain. FOR PAIN. 10 tablet 0 04/14/2022 06/10/2022 Discontinued Completed/Discontinued Medications Medication Drug Class(es) Dates Sig (Normalized) Sig (Original) [id number] 200 actuat albuterol 0.09 mg/actuat metered dose inhaler (15 sources) beta2-Adrenergic Agonist Start: 06-29-2016 End: 09-06-2022 take 2 puff(s) by inhalation every six hours as needed for cough albuterol HFA (PROVENTIL HFA, VENTOLIN HFA) 90 mcg/actuation inhaler Indications: Cough Inhale 2 Puffs as instructed every 6 hours as needed for Wheezing/Shortness of Breath (persistent cough). 1 Inhaler 2 06/29/2016 09/06/2022 Discontinued Problems Active Problems Problem Classification Problem Date Documented Date Episodic/Chronic Anxiety disorders (8 sources) Generalized anxiety disorder; Translations: [Generalized anxiety disorder] Onset: 08-21-2014 Chronic Cancer of cervix (20 sources) High grade squamous intraepithelial lesion on cervical Papanicolaou smear; Translations: [High grade squamous intraepithelial lesion on cytologic smear of cervix (HGSIL)] Onset: 10-31-2013 10-31-2013 Episodic Disorders of lipid metabolism (3 sources) Hypertriglyceridemia; Translations: [Pure hyperglyceridemia] Onset: 05-25-2023 05-25-2023 Chronic Endometriosis (1 source) Uterine adenomyosis; Translations: [Endometriosis of uterus] Chronic Genitourinary symptoms and ill-defined conditions (2 sources) Scalding pain on urination ; Translations: [Dysuria] Episodic Immunizations and screening for infectious disease (3 sources) Patient encounter status; Translations: [Encounter for screening for human papillomavirus (HPV)] Episodic Menstrual disorders (3 sources) Intermenstrual bleeding - irregular; Translations: [Excessive and frequent menstruation with irregular cycle] Chronic Nausea and vomiting (3 sources) Postoperative nausea and vomiting; Translations: [Nausea with vomiting, unspecified] Onset: 09-28-2023 09-28-2023 Episodic Nonmalignant breast conditions (5 sources) Lump in lower outer quadrant of left breast; Translations: [Unspecified lump in the left breast, lower outer quadrant] Onset: 09-21-2023 Episodic Other and unspecified benign neoplasm (1 source) Benign lipomatous neoplasm of skin and subcutaneous tissue of trunk; Translations: [Lipoma of torso] Onset: 10-13-2023 Episodic Other endocrine disorders (1 source) Hypoglycemia; Translations: [Hypoglycemia, unspecified] 07-08-2023 Chronic Other female genital disorders (2 sources) Abnormal uterine bleeding; Translations: [Abnormal uterine and vaginal bleeding, unspecified] Chronic Other hematologic conditions (1 source) History of anemia; Translations: [Personal history of diseases of the blood and blood-forming organs and certain disorders involving the immune mechanism] 05-25-2023 Episodic Other lower respiratory disease (1 source) Cough; Translations: [Acute cough] Episodic Other nervous system disorders (1 source) Postoperative pain ; Translations: [Other acute postprocedural pain] Episodic Other nutritional; endocrine; and metabolic disorders (1 source) Weight gain; Translations: [Abnormal weight gain] 05-25-2023 Episodic Other skin disorders (1 source) Loss of hair; Translations: [Nonscarring hair loss, unspecified] Episodic Other upper respiratory disease (20 sources) Allergic rhinitis; Translations: [Allergic rhinitis, unspecified] 03-16-2010 Chronic Other upper respiratory infections (2 sources) Acute upper respiratory infection; Translations: [Acute upper respiratory infection, unspecified] 09-14-2023 Episodic Residual codes; unclassified (1 source) Postoperative state; Translations: [Other specified postprocedural states] Episodic Residual codes; unclassified (1 source) Maternal history of diabetes mellitus; Translations: [Family history of diabetes mellitus] 05-25-2023 Episodic Urinary tract infections (1 source) Recurrent urinary tract infection; Translations: [Urinary tract infection, site not specified] 08-12-2023 Episodic Viral infection (2 sources) Viral disease; Translations: [Viral infection, unspecified] Episodic Past or Other Problems Problem Classification Problem Date Documented Date Episodic/Chronic Inflammatory diseases of female pelvic organs (20 sources) Bacterial vaginosis; Translations: [Acute vaginitis] Onset: 06-09-2018 06-09-2018 Episodic Mycoses (20 sources) Candidiasis of vagina; Translations: [Candidiasis of vulva and vagina] Onset: 06-09-2018 06-09-2018 Episodic Other complications of (20 sources) Previous operation to cervix affecting ; Translations: [Maternal care for other abnormalities of cervix, unspecified trimester] Onset: 12-22-2017 12-22-2017 Episodic Other female genital disorders (20 sources) Cervical intraepithelial neoplasia grade 2; Translations: [Moderate cervical dysplasia] Onset: 09-03-2014 09-03-2014 Episodic Other hematologic conditions (1 source) Personal history of diseases of the blood and blood-forming organs and certain disorders involving the immune mechanism; Translations: [History of anemia] Onset: 05-25-2023 Episodic Other nutritional; endocrine; and metabolic disorders (1 source) Abnormal weight gain; Translations: [Weight gain] Onset: 05-25-2023 Episodic Residual codes; unclassified (20 sources) H/O: depression; Translations: [Personal history of other complications of , childbirth and the puerperium] Onset: 12-22-2017 12-22-2017 Episodic Residual codes; unclassified (20 sources) FH: Congenital heart disease; Translations: [Family history of other congenital malformations, deformations and chromosomal abnormalities] Onset: 12-22-2017 12-22-2017 Episodic Residual codes; unclassified (1 source) Family history of diabetes mellitus; Translations: [Family history of diabetes mellitus in mother] Onset: 05-25-2023 Episodic Spondylosis; intervertebral disc disorders; other back problems (20 sources) Low back pain; Translations: [Bilateral low back pain without sciatica] Onset: 02-25-2017 02-25-2017 Episodic Results Test Name Value Interpretation Reference Range Facil ity Vital Signs Date Time Vital Sign Value Performing Clinician Beatris yost 09-28-2023 10:58-0500 Body height 154.[address] [facility] Work Phone: [facility] 09-28-2023 10:58-0500 Body weight 68.[address] [facility] Work Phone: [facility] 09-14-2023 11:43-0500 Body temperature 97.7 [degF] Krislyn Aberegg PA Work Phone: [facility] 09-14-2023 11:43-0500 Body weight 69.67 kg Krislyn Aberegg PA Work Phone: [facility] 09-14-2023 11:43-0500 Diastolic blood pressure 84 mm[Hg] Krislyn Aberegg PA Work Phone: [facility] 09-14-2023 11:43-0500 Heart rate 130 /min Krislyn Aberegg PA Work Phone: [facility] 09-14-2023 11:43-0500 Respiratory rate 18 /min Krislyn Aberegg PA Work Phone: [facility] 09-14-2023 11:43-0500 SaO2% (BldA) [Mass fraction] 98 % Krislyn Aberegg PA Work Phone: [facility] 09-14-2023 11:43-0500 Systolic blood pressure 125 mm[Hg] Krislyn Aberegg PA Work Phone: [facility] 08-29-2023 09:23-0500 Body weight 65.77 kg Neena Luis Daniel MANAGER MOBILE.TRANSMISSION SUPERINTENDENT Work Phone: [facility] 08-29-2023 09:23-0500 Diastolic blood pressure 62 mm[Hg] Neena Luis Daniel MANAGER MOBILE.TRANSMISSION SUPERINTENDENT Work Phone: [facility] 08-29-2023 09:23-0500 Systolic blood pressure 108 mm[Hg] Neena Luis Daniel MANAGER MOBILE.TRANSMISSION SUPERINTENDENT Work Phone: [facility] 07-08-2023 08:48-0400 Body height 157.5 cm Jeffletty Estradabow PA-C Work Phone: [facility] 07-08-2023 08:48-0400 Body weight 68.49 kg Jeff Denbow PA-C Work Phone: [facility] 07-08-2023 08:48-0400 Diastolic blood pressure 56 mm[Hg] Jeff Denbow PA-C Work Phone: [facility] 07-08-2023 08:48-0400 Heart rate 111 /min Jeff Denbow PA-C Work Phone: [facility] 07-08-2023 08:48-0400 Respiratory rate 12 /min Jeff Denbow PA-C Work Phone: [facility] 07-08-2023 08:48-0400 SaO2% (BldA) [Mass fraction] 97 % Jeff Denbow PA-C Work Phone: [facility] 07-08-2023 08:48-0400 Systolic blood pressure 108 mm[Hg] Jeff Denbow PA-C Work Phone: [facility] 05-25-2023 09:57-0400 Body height 157.5 cm Jeff Denbow PA-C Work Phone: [facility] 05-25-2023 09:57-0400 Body weight 69.85 kg Jeff Denbow PA-C Work Phone: [facility] 05-25-2023 09:57-0400 Diastolic blood pressure 76 mm[Hg] Jeff Denbow PA-C Work Phone: [facility] 05-25-2023 09:57-0400 Heart rate 81 /min Jeff Denbow PA-C Work Phone: [facility] 05-25-2023 09:57-0400 Respiratory rate 12 /min Jeff Denbow PA-C Work Phone: [facility] 05-25-2023 09:57-0400 SaO2% (BldA) [Mass fraction] 98 % Jeff Denbow PA-C Work Phone: [facility] 05-25-2023 09:57-0400 Systolic blood pressure 124 mm[Hg] Jeff Denbow PA-C Work Phone: [facility] 03-13-2023 11:11-0400 Body temperature 97.81 [degF] Rohith Alvarez APRN.CNP Work Phone: [facility] 03-13-2023 [id number] Body weight 68.95 [facility] MA[facility] [employer]BI[employer]SMISSION SUPERINTENDENT Work Phone: [facility] 03-13-2023 11:11-0400 Diastolic blood pressure 86 mm[Hg] Rohith Albalebury MANAGER MOBILE.TRANSMISSION SUPERINTENDENT Work Phone: [facility] 03-13-2023 11:11-0400 Heart rate 120 /min Rohith Pendlebury MANAGER MOBILE.TRANSMISSION SUPERINTENDENT Work Phone: [facility] 03-13-2023 11:11-0400 Respiratory rate 16 /min Rohith Pendlebury MANAGER MOBILE.TRANSMISSION SUPERINTENDENT Work Phone: [facility] 03-13-2023 11:11-0400 SaO2% (BldA) [Mass fraction] 98 % [facility] MANAGER MOBILE.[employer]SMISSION SUPERINTENDENT Work Phone: [facility] 03-13-2023 11:11-0400 Systolic blood pressure 132 mm[Hg] Rohith Pendlebury MANAGER MOBILE.TRANSMISSION SUPERINTENDENT Work Phone: [facility] 09-06-2022 10:42-0500 Body height 157.5 cm Karlee Hooper MD Work Phone: [facility] 09-06-2022 10:42-0500 Body temperature 98.4 [degF] Karlee Hooper MD Work Phone: [facility] 09-06-2022 10:42-0500 Body weight 70.31 kg Karlee Hooper MD Work Phone: [facility] 09-06-2022 10:42-0500 Diastolic blood pressure 60 mm[Hg] Karlee Hooper MD Work Phone: [facility] 09-06-2022 10:42-0500 Heart rate 83 /min Karlee Hooper MD Work Phone: [facility] 09-06-2022 10:42-0500 Respiratory rate 12 /min Karlee Hooper MD Work Phone: [facility] 09-06-2022 10:42-0500 SaO2% (BldA) [Mass fraction] 98 % Karlee Hooper MD Work Phone: [facility] 09-06-2022 10:42-0500 Systolic blood pressure 112 mm[Hg] Karlee Hooper MD Work Phone: [facility] 06-29-2022 09:25-0400 Body temperature 98.01 [degF] Chana Delacruz MANAGER MOBILE.TRANSMISSION SUPERINTENDENT Work Phone: [facility] 06-29-2022 09:25-0400 Body weight 71.22 kg Chana Delacruz MANAGER MOBILE.TRANSMISSION SUPERINTENDENT Work Phone: [facility] 06-29-2022 09:25-0400 Diastolic blood pressure 64 mm[Hg] Chana Delacruz MANAGER MOBILE.TRANSMISSION SUPERINTENDENT Work Phone: [facility] 06-29-2022 09:25-0400 Heart rate 106 /min Chana Delacruz MANAGER MOBILE.TRANSMISSION SUPERINTENDENT Work Phone: [facility] 06-29-2022 09:25-0400 Respiratory rate 16 /min Chana Delacruz MANAGER MOBILE.TRANSMISSION SUPERINTENDENT Work Phone: [facility] 06-29-2022 09:25-0400 SaO2% (BldA) [Mass fraction] 98 % Chana Delacruz MANAGER MOBILE.TRANSMISSION SUPERINTENDENT Work Phone: [facility] 06-29-2022 09:25-0400 Systolic blood pressure 118 mm[Hg] Chana Delacruz MANAGER MOBILE.TRANSMISSION SUPERINTENDENT Work Phone: [facility] 06-10-2022 09:09-0400 Body weight 68.95 kg Lila Bull MANAGER MOBILE.TRANSMISSION SUPERINTENDENT Work Phone: [facility] 05-10-2022 09:27-0400 Body weight 67.95 kg Cammy Sweeney MD Work Phone: [facility] 05-10-2022 09:27-0400 Diastolic blood pressure 62 mm[Hg] Cammy Sweeney MD Work Phone: [facility] 05-10-2022 09:27-0400 Systolic blood pressure 98 mm[Hg] Cammy Sweeney MD Work Phone: [facility] 04-14-2022 10:12-0400 Body height 158 cm Cammy Sweeney MD Work Phone: [facility] 04-14-2022 10:120400 Body weight 67.95 kg Cammy Sweeney MD Work Phone: [facility] 04-14-2022 10:12-0400 Diastolic blood pressure 68 mm[Hg] Cammy Sweeney MD Work Phone: [facility] 04-14-2022 10:12-0400 Heart rate 91 /min Cammy Sweeney MD Work Phone: [facility] 04-14-2022 10:12-0400 Respiratory rate 18 /min Cammy Sweeney MD Work Phone: [facility] 04-14-2022 10:12-0400 SaO2% (BldA) [Mass fraction] 96 % Cammy Sweeney MD Work Phone: [facility] 04-14-2022 10:12-0400 Systolic blood pressure 112 mm[Hg] Cammy Sweeney MD Work Phone: [facility] 12-29-2021 10:15-0400 Body temperature 97.81 [degF] Rohith Alvarez MANAGER MOBILE.TRANSMISSION SUPERINTENDENT Work Phone: [facility] 12-29-2021 10:15-0400 Body weight 68.04 kg Rohith Alvarez MANAGER MOBILE.TRANSMISSION SUPERINTENDENT Work Phone: [facility] 12-29-2021 10:15-0400 Diastolic blood pressure 64 mm[Hg] Rohith Alvarez MANAGER MOBILE.TRANSMISSION SUPERINTENDENT Work Phone: [facility] 12-29-2021 10:15-0400 Heart rate 112 /min Rohith Alvarez MANAGER MOBILE.TRANSMISSION SUPERINTENDENT Work Phone: [facility] 12-29-2021 10:15-0400 Respiratory rate 16 /min Rohith Alvarez MANAGER MOBILE.TRANSMISSION SUPERINTENDENT Work Phone: [facility] 12-29-2021 10:15-0400 SaO2% (BldA) [Mass fraction] 98 % Rohith Alvarez MANAGER MOBILE.TRANSMISSION SUPERINTENDENT Work Phone: [facility] 12-29-2021 10:15-0400 Systolic blood pressure 102 mm[Hg] Rohith Alvarez MANAGER MOBILE.TRANSMISSION SUPERINTENDENT Work Phone: [facility] Encounters Encounter Date Encounter Type Care Provider Facility Start: 10-13-2023 End: 10-13-2023 ambulatory KARLEE HOOPER Facility:[facility] Start: 09-28-2023 End: 09-28-2023 ambulatory Viv Zee MANAGER MOBILE.TRANSMISSION SUPERINTENDENT Work Phone: Pre Anesthesia Procedures Date Procedure Procedure Detail Performing Clinician Start: 09-14-2023 STREP A MOLECULAR (POC) Rock Wan PA Work Phone: Start: 07-22-2023 INFLUENZA VACCINE, A GE 6 MO - 64 YR, QUADRIVALENT (AFLURIA, FLULAVAL, FLUZONE) Cheri Young MD Work Phone: Start: 03-13-2023 Urnls dip stick/tabl et rgnt auto w/o microscopy Chana Delacruz MANAGER MOBILE.TRANSMISSION SUPERINTENDENT Work Phone: Start: 09-06-2022 PFIZER-BIONTECH COVI D-19 BIVALENT BOOSTER VACCINE, AGE 12+ YR Karlee Hooper MD Work Phone: Start: 07-09-2022 INFLUENZA VACCINE QUADRIVALENT 6 MO - 64 YRS IM Karlee Hooper MD Work Phone: Start: 06-15-2022 Us breast uni real t aquiles with image limited Lila Bull MANAGER MOBILE.TRANSMISSION SUPERINTENDENT Work Phone: Start: 06-15-2022 Diagnostic mammograp hy computer-aided detcj bi Lila Bull MANAGER MOBILE.TRANSMISSION SUPERINTENDENT Work Phone: Start: 09-01-2020 Adult depression screening assessment Rohith Alvarez MANAGER MOBILE.TRANSMISSION SUPERINTENDENT Work Phone: Start: 09-03-2014 H/O: surgery History of loo p electrical excision procedure (LEEP) Rohith Alvarez MANAGER MOBILE.TRANSMISSION SUPERINTENDENT Work Phone: Plan of Treatment Date Care Activity Detail Author Start: 07-14-2028 Urine microalbumin profile [facility] Start: 04-14-2027 HPV TESTING HPV TESTING [facility] Start: 04-14-2027 PAP TESTING PAP TESTING [facility] Start: 04-14-2027 Screening for malign ant neoplasm of cervix [facility] Start: 08-31-2024 HPV TESTING HPV TESTING [facility] Start: 08-31-2024 PAP TESTING PAP TESTING [facility] Start: 08-12-2023 End: 11-11-2023 Bacteria identified in Urine by Culture [facility] Work Phone: Immunizations Immunization Date Immunization Notes Care Provider Jethro rodriguez 07-22-2023 influenza, injectabl e, quadrivalent, contains preservative Immunization [address] Work Phone: [facility] Work Phone: 09-06-2022 COVID-19 booster vaccine, age 12+ yr, bivalent (PFIZER-BIONTECH) Karlee Hooper MD Work Phone: [facility] Work Phone: 07-09-2022 influenza, injectabl e, quadrivalent, contains preservative Mi Nurse Work Phone: [facility] Work Phone: 07-09-2022 influenza virus vaccine, unspecified formulation Jeff Barboza PA-C Work Phone: [facility] 11-24-2021 COVID-19 vaccine, ag e 12+ yr (PFIZER-BIONTECH - MICHAEL TOP) Rohith Alvarez APRN.TRANSMISSION SUPERINTENDENT Work Phone: [facility] Work Phone: 07-10-2021 influenza, injectabl e, quadrivalent, contains preservative Rohith Pendlebury MANAGER MOBILE.TRANSMISSION SUPERINTENDENT Work Phone: [facility] Work Phone: 07-25-2020 influenza, injectabl e, quadrivalent, contains preservative Rohith Pendlebury MANAGER MOBILE.TRANSMISSION SUPERINTENDENT Work Phone: [facility] Work Phone: 07-27-2019 influenza, injectabl e, quadrivalent, contains preservative Rohith Pendlebury MANAGER MOBILE.TRANSMISSION SUPERINTENDENT Work Phone: [facility] 07-14-2018 influenza, injectabl e, quadrivalent, contains preservative Rohith Pendlebury MANAGER MOBILE.TRANSMISSION SUPERINTENDENT Work Phone: [facility] 07-14-2018 tetanus toxoid, reduced diphtheria toxoid, and acellular pertussis vaccine, adsorbed Rohith Pendlebury MANAGER MOBILE.TRANSMISSION SUPERINTENDENT Work Phone: [facility] 08-03-2017 influenza, injectabl e, quadrivalent, contains preservative Rohith Pendlebury MANAGER MOBILE.TRANSMISSION SUPERINTENDENT Work Phone: [facility] Work Phone: 02-03-2015 tetanus toxoid, reduced diphtheria toxoid, and acellular pertussis vaccine, adsorbed Rohith Pendlebury MANAGER MOBILE.TRANSMISSION SUPERINTENDENT Work Phone: [facility] 08-21-2014 influenza, seasonal, injectable Rohith Pendlebury MANAGER MOBILE.TRANSMISSION SUPERINTENDENT Work Phone: [facility] Work Phone: 07-24-2014 influenza, seasonal, injectable Viv Jogerst MANAGER MOBILE.TRANSMISSION SUPERINTENDENT Work Phone: [facility] 07-24-2014 influenza, seasonal, injectable, preservative free Viv Jogerst MANAGER MOBILE.TRANSMISSION SUPERINTENDENT Work Phone: [facility] 06-05-2013 tetanus toxoid, reduced diphtheria toxoid, and acellular pertussis vaccine, adsorbed Rohith Pendlebury MANAGER MOBILE.TRANSMISSION SUPERINTENDENT Work Phone: [facility] 07-31-2012 human papilloma viru s vaccine, quadrivalent Rohith Pendlebury MANAGER MOBILE.TRANSMISSION SUPERINTENDENT Work Phone: [facility] Work Phone: 09-09-2010 influenza virus vaccine, unspecified formulation Rohith Alvarez MANAGER MOBILE.[facility] Work Phone: [facility] Work Phone: 08-20-2009 novel [id number], all formulations Rohith Alvarez MANAGER MOBILE.[facility] Work Phone: [facility] 07-22-2009 influenza virus vaccine, unspecified formulation Rohith Alvarez MANAGER MOBILE.[facility] Work Phone: [facility] Work Phone: 07-12-2007 influenza virus vaccine, unspecified formulation Rohith Alvarez MANAGER MOBILE.[facility] Work Phone: [facility] Work Phone: 12-25-2002 haemophilus influenz ae type b vaccine, HbOC conjugate Rohith Alvarez MANAGER MOBILE.[facility] Work Phone: [facility] Work Phone: 08-22-2002 haemophilus influenz ae type b vaccine, HbOC conjugate Rohith Alvarez MANAGER MOBILE.[facility] Work Phone: [facility] Work Phone: 07-09-2002 diphtheria and tetan us toxoids, adsorbed for pediatric use Rohith Alvarez MANAGER MOBILE.[facility] Work Phone: [facility] Work Phone: 07-09-2002 haemophilus influenz ae type b vaccine, HbOC conjugate Rohith Alvarez MANAGER MOBILE.[facility] Work Phone: [facility] Work Phone: 01-06-1996 diphtheria, tetanus toxoids and pertussis vaccine Rohith Alvarez MANAGER MOBILE.[facility] Work Phone: [facility] Work Phone: 01-06-1996 trivalent poliovirus vaccine, live, oral Rohith Alvarez MANAGER MOBILE.[facility] Work Phone: [facility] Work Phone: 07-26-1991 diphtheria, tetanus toxoids and pertussis vaccine Rohith Pendlebury MANAGER MOBILE.[facility] Work Phone: [facility] Work Phone: 07-26-1991 trivalent poliovirus vaccine, live, oral Rohith Pendlebury MANAGER MOBILE.TRANSMISSION SUPERINTENDENT Work Phone: [facility] Work Phone: 12-19-1990 diphtheria, tetanus toxoids and pertussis vaccine [facility] MANAGER MOBILE.TRANSMISSION SUPERINTENDENT Work Phone: [facility] Work Phone: 12-19-1990 haemophilus influenz ae type b vaccine, HbOC conjugate [facility] MANAGER MOBILE.[facility] Work Phone: [facility] Work Phone: 12-19-1990 measles, mumps and rubella virus vaccine [facility] MANAGER MOBILE.[facility] Work Phone: [facility] Work Phone: 04-14-1990 diphtheria, tetanus toxoids and pertussis vaccine Rohith Pendlebury MANAGER MOBILE.[facility] Work Phone: [facility] Work Phone: 04-14-1990 trivalent poliovirus vaccine, live, oral Rohith Pendlebury MANAGER MOBILE.[facility] Work Phone: [facility] Work Phone: 1989 trivalent poliovirus vaccine, live, oral Rohith Pendlebury MANAGER MOBILE.[facility] Work Phone: [facility] Work Phone: 1989 diphtheria, tetanus toxoids and pertussis vaccine [facility] MANAGER MOBILE.[facility] Work Phone: [facility] Work Phone: Payers Date Payer Category Payer Medicaid [id number] 2020 Medicaid [id number]. [id number] 2017 Medicaid [place] [id number] 2017-Present [phone] [address] [place] [address] Medicaid [id number] Social History Date Type Detail Facility Start: 06-07-2022 Tobacco smoking stat us NHIS Never smoked tobacco [facility] Work Phone: Start: 12-29-2021 End: 09-28-2023 Alcohol intake Current non-drinker of alcohol (finding) [facility] Start: 09-01-2020 End: 09-05-2022 History SDOH Alcohol Frequency 2 [facility] Start: 09-01-2020 End: 09-05-2022 History SDOH Alcohol Std Drinks 1 [facility] Start: 09-01-2020 End: 09-05-2022 History SDOH Social Connections Phone 5 [facility] Start: 09-01-2020 End: 09-05-2022 History SDOH Social Connections Get Together 3 [facility] Start: 09-01-2020 History SDOH Financial 4 [facility] Start: 09-01-2020 Education 12 [facility] Start: 1990 Sex Assigned At Not on file [facility] Start: 12-19-2021 End: 09-06-2022 Exposure to SARS-CoV-2 (event) Not sure [facility] Work Phone: Start: 06-07-2022 Tobacco use and exposure Smoke less tobacco non-user [facility] Start: 09-05-2022 History SDOH Alcohol Std Drinks 0 [facility] Start: 09-05-2022 End: 08-29-2023 History of Social function [facility] Start: 09-05-2022 End: 08-29-2023 Social connection and isolation panel [facility] Do you belong to any clubs or organizations such as gnosticist groups, unions, fraternal or athletic groups, or school groups? Yes [facility] Are you now , , , , never or living with a partner? [facility] How often to you hav e a drink containing alcohol? Never [facility] How many standard dr inks containing alcohol do you have on a typical day? Patient does not drink [facility] Do you feel stress - tense, restless, nervous, or anxious, or unable to sleep at night because your mind is troubled all the time - these days [OSQ] Only a little [facility] (I/We) worried wheth er (my/our) food would run out before (I/we) got money to buy more. Never true [facility] In the past 12 month s, was there a time when you were not able to pay the mortgage or rent on time? No [facility] Clinical Notes 06-26-2018 to 10-13-2023 Patient InstructionsViv Zee APRN.TRANSMISSION SUPERINTENDENT - 09/28/2023 11:00 AM ESTTelephone Encounter - Ana M Farmer E - 09/20/2023 8:20 AM ESTTelephone Encounter - Elsa Beard APRN.TRANSMISSION SUPERINTENDENT - 09/19/2023 4:41 PM EST Note Date & Type Note Facility 10-13-2023 Note HNO ID: [id number] Author: GABRIELA DIXON APRN.CRNA Service: Anesthesiology Author Type: Nurse Gas Plant Technician Type: Anesthesia Procedure Notes Filed: 10/13/2023 13:47 Note Text: ANESTHESIOLOGY PROCEDURE NOTE Airway General Information Procedure Start Time/Medication Administration: 10/13/2023 1:31 PM Patient location during procedure: OR Timeout Performed Pre-procedure: timeout performed Consent Obtained: Yes Patient identity confirmed: arm band and patient Staffing PLASTIC JIG AND FIXTURE BUILDER: Gabriela Dixon APRN.PLASTIC JIG AND FIXTURE BUILDER Performed by: PLASTIC JIG AND FIXTURE BUILDER Indications and Patient Condition Indications for airway management: anesthesia Preoxygenated: yes anesthesia circuit Patient position: sniffing Method: asleep Difficult Mask: No Final Airway Details Final airway type: supraglottic airway Number of attempts at approach: 1 Final Supraglottic Airway: i-gel Size 3 Seal Adequate: yes SIGNATURE: Gabriela Dixon APRN.PLASTIC JIG AND FIXTURE BUILDER PATIENT NAME: Sanford Sin DATE: October 13, 2023 TIME: 1:46 PM CSN: [id number] [facility] 09-28-2023 Instructions Viv Zee APRN.CNP - 09/28/2023 11:04 AM EST PATIENT PREOPERATIVE INSTRUCTIONS Dr. Tinsley has scheduled you for your procedure at this surgery center: [facility]: [phone] -- [address] [address]. Please read below carefully for your personalized instructions. Dietary Restrictions: - No solid food after midnight. - You may have 12 ounces of clear liquids (water, clear juices such as apple juice or gatorade, carbonated beverages, clear tea, black coffee, jello) until 2 hours before scheduled arrival at facility. Medications: Unless instructed differently below, stay on all of your medications until your surgery. If you start any new medications after today's visit, please contact your surgeon. Pre-Surgery Med Instructions Medication Instructions FLUoxetine (PROZAC) 10 mg capsule Take the day of surgery with a small sip of water VITAMIN D 25 mcg (1,000 unit) cap Stop 7 days before surgery fluticasone (FLONASE) 50 mcg/actuation nasal spray May continue medication until surgery. Biotin 1 mg tab Stop 7 days before surgery busPIRone (BUSPAR) 5 mg tablet Take the day of surgery with a small sip of water If you start any new medications after today's visit, please contact the surgeon's office. Blood Thinning Medications: - Stop NSAIDS (Ibuprofen, Advil, Aleve, Motrin, Celebrex, Mobic, etc.) 7 days before surgery, as directed by your surgeon. - Stop Aspirin 7 days before surgery, as directed by your surgeon. - Stop Vitamin E, ALL multi-vitamins, herbals and dietary supplements 7 days before surgery. - You may take Tylenol (Acetaminophen) or any of your pain medications that do not contain aspirin or NSAIDS as needed. Important Reminders: - Candy, mints, and tobacco products are NOT permitted the morning of surgery. - Hearing aids, dentures and glasses may be worn the morning of surgery. - NO jewelry, body piercings, makeup, hairpins or contacts are to be worn the day of surgery. If you develop symptoms such as a fever, cold, or flu, or have other changes to your health within TWO DAYS of scheduled surgery or the morning of surgery, please contact the surgery center above. Personal Belongings: -Please have photo ID and insurance cards. -If you do not have a copy of advance directives on file with us, please bring a copy with you on the day of surgery. - Leave ALL valuables and money at home or with family members. For Outpatient Procedures: - YOU MUST HAVE A RESPONSIBLE CONCRETE FINISHER TAKE YOU HOME. A CONTRACTS LAW PROFESSOR OR QUALITY INTERNSHIP CANNOT BE MADE A RESPONSIBLE CONCRETE FINISHER. - We recommend that a responsible person stays with you overnight to take care of you. - You cannot stay in a hotel alone after outpatient surgery. You will not be permitted to have your surgery, if you do not have someone to take care of you. Arrival Time for Surgery: - The Surgery Center or hospital where you are having surgery will call the afternoon before surgery (or Tuesday for Tuesday surgery) with a scheduled arrival time. - If you have not heard by 4 pm, please contact the surgery center above. Please be aware that emergency situations arise, which may delay or change your surgical time. If this happens, we will notify you as soon as possible and regret any inconvenience. If you already have an Advance Directive, please fax a copy to [phone] or email to for it to be added to your chart. If you do not have an Advance Directive, you can find the appropriate form and more information at [email or web address]. We recommend that you complete the Advance Directive form found on the website and bring it with you the day of your surgery. It can be witnessed and scanned into your chart that day. Viv Zee APRN.MANDEEP documented in this encounter [facility] 09-28-2023 History and physical note HISTORY AND PHYSICAL EXAMINATION SERVICE DATE: 09/28/2023 SERVICE TIME: 10:50 AM This is a virtual visit using UMic[employer] Video Visit. It required patient-provider interaction for the medical decision making as documented below. I have communicated my name and active licensure. The patient's identity and physical location were verified at the time of this visit. Either the patient or their legal specialty sales representative has been informed of the risks and benefits of and alternatives to treatment through a remote evaluation and consents to proceed with the evaluation remotely. PRIMARY CARE PHYSICIAN: Karlee Hooper MD Assessment Patient has the following medical conditions which may affect odalys-operative course: Anxiety with depression Assessment: Controlled on Prozac and Buspar History of cervical cancer Assessment: Cervical cancer s/p removal - no chemo or radiation PONV (postoperative nausea and vomiting) Assessment: Potential issue, reports she had PONV with hysterectomy Cage Activity Status Index: METS: Climb a flight of stairs or walk up a hill (5.50 METs) DASI Score: 5.5 Patient denies any chest pain or undue shortness of breath with the above physical activity. Clinical Frailty Scale: 2. Well STOP-Bang Score: Denies snoring loudly Denies feeling tired, fatigued, or sleepy during the daytime Has not been observed to stop breathing or choking/gasping during sleep Denies having high blood pressure BMI less than or equal to 35 kg/m^2 Patient 50 years old or younger Does not have a large neck Non-male patient STOP-Bang Score: 0 [id number] Score: Age: <65 Sex: female CHF history: No Hypertension history: No Stroke/TIA/thromboembolism history: No Vascular disease history: No Diabetes history: No [id number] Score: 1 ANESTHESIA FINDINGS: Intubation History: No abnormal airway history Significant Anesthesia Considerations: potential postop nausea/vomiting Airway History: No abnormal airway history I - PHYSICAL EVALUATION AIRWAY Patient intubated: No. Tracheostomy tube not present Mallampati: II. TM distance: >3 FB. Neck ROM: full ROM without neurological symptoms. Mouth opening: adequate. Short neck: no. Thick neck: no Lip Bite Test: I Microretrognathia/Micronagthia/Rec essed Chin: No DENTAL Dental findings: teeth intact. II - ANESTHESIA PLAN Anesthetic plan additional comments: *PACC/TCI - anesthesia choice. Beta Petra Monitoring Plan Post Procedure Analgesic Plan This is a virtual visit using As[employer]co video visit. It required patient-provider interaction for the medical decision making as documented below. REASON FOR VISIT: Sanford Sin is a 33 year old female who is scheduled for Procedure(s): EXCISION LIPOMA CHEST (Left) at the request of Alejandrina Huertas MD for consultation. My final recommendation will be communicated back to the requesting physician by way of shared medical record or letter. Subjective The patient has the following: ACTIVE PROBLEM LIST Allergic Rhinitis, Cause Unspecified Hsil On Pap Smear of Cervix Anxiety With Depression Good II (Cervical Intraepithelial Neoplasia Ii) History of Loop Electrical Excision Procedure (Leep) Bilateral Low Back Pain Without Sciatica History of Loop Electrosurgical Excision Procedure (Leep) of Cervix Affecting , Antepartum History of Depression Family History of Congenital Heart Defect Bacterial Vaginitis Vaginal Candidiasis Ponv (Postoperative Nausea and Vomiting) History of Cervical Cancer COVID-19 Immunization Status Overdue - Covid-19 Vaccine ( season) Overdue since 06/10/2023 09/06/2022 Imm Admin: COVID-19 vaccine, age 12+ yr, bivalent (PFIZER-BIONTECH) 11/24/2021 Imm Admin: COVID-19 original vaccine, age 12+ yr, monovalent (PFIZER-BIONTECH - MICHAEL TOP) 02/10/2021 Imm Admin: COVID-19 original vaccine, age 12+ yr, monovalent (PFIZER-BIONTECH - PURPLE TOP) Only the first 3 history entries have been loaded, but more history exists. Patient reports being fully vaccinated against COVID-19. CHIEF COMPLAINT: Lipoma of torso HPI: This 33 year old female is scheduled for the above procedure and presents to the [facility] virtually for pre-operative examination. Patient reports left chest wall lipoma that is positioned near her bra line which she would like surgically removed. Denies fevers, chills, nausea, vomiting, abdominal pain, chest pain, and SOB. This is a virtual visit. The visit was conducted using Asysco video visit. It required patient-provider interaction for the medical decision making as documented below. I have communicated my name and active licensure. The patient's identity and physical location were verified at the time of this visit. Either the patient or their legal specialty sales representative has been informed of the risks and benefits of and alternatives to treatment through a remote evaluation and consents to proceed with the evaluation remotely. REVIEW OF SYSTEMS: General: No weight loss, malaise or fevers. Neurological: No history of TIA's, stroke, SLASHER tumor, impaired sensorium, hemiplegia, paraplegia or quadraplegia. No neurological symptoms or problems. Respiratory: No history of current cough or dyspnea, or pneumonia in the past 6 weeks. No history of respiratory/pulmonary symptoms or problems. Negative for: asthma, COPD and obstructive sleep apnea. Cardiovascular: No history of HTN requiring medication, no history of angina, CHF, [place], cardiac surgery or stents. Denies rest pain, gangrene or revascularization/amputation for PVD. No history of cardiovascular symptoms or problems. GI: No history of GI symptoms or problems. No history of esophageal varices, recent ascites, or ETOH greater than 2 drinks per day. : No history of dysuria, frequency or incontinence, stones or chronic kidney disease. No difficulty urinating, nocturia > 1 time per night or hematuria. EQUIPMENT SERVICE ENGINEER: +s/p hysterectomy. Negative for abnormal vaginal bleeding, abnormal vaginal discharge. Endocrine: No history of diabetes. Has not taken steroids within the past 30 days. No history of endocrinological symptoms or problems. Hematology: No history of bleeding or clotting disorder. Patient is not taking anti-coagulation or platelet medications. No history of hematological symptoms or problems. Oncology: +Cervical cancer s/p removal - no chemo or radiation Negative for: chemo within 30 days and radiotherapy within 90 days. Psych: Positive for: anxiety and depression. Negative for: drug dependency. Musculoskeletal: Negative for joint pain or swelling, back pain or muscle pain. Skin: See HPI. PAST MEDICAL HISTORY Diagnosis Date Allergic rhinitis, cause unspecified Anemia WITH EVERY Depression 08/21/2014 HSIL (high grade squamous intraepithelial lesion) on Pap smear of cervix 10/11/13 Papanicolaou smear of cervix with low grade squamous intraepithelial lesion (LGSIL) 2011 PMH - PAST MEDICAL HISTORY OF 06/11 normal color vision PMH - PAST MEDICAL HISTORY OF collapsed lung at depression with last . 08/22/13 PAST SURGICAL HISTORY Procedure Laterality Date COLPOSCOPY 10/31/2013 GOOD 2 INSERTION OF IUD 07/06/2011 mirenaAND REMOVAL LEEP PROCEDURE (EQUIPMENT SERVICE ENGINEER DEPT)_*FL 12/05/2013 SALPINGECTOMY 09/14/2018 Laparoscopic Bilateral salpingectomy TONSILLECTOMY & ADENOIDECTOMY <AGE 11 age 9 VAGINAL HYSTERECTOMY 04/22/2022 LAVH, cystoscopy- adenomyosis FAMILY HISTORY Problem Relation Age of Onset Lipids Mother Asthma Daughter Asthma Daughter Asthma Son Asthma Son Diabetes Maternal Aunt Diabetes Maternal Grandmother Psychiatry Maternal Grandmother Stroke Maternal Grandmother Blood Clots Maternal Grandmother Heart Maternal Grandfather later in life (age 79) other (cancer-intestines) Maternal Grandfather type unknown Diabetes Paternal Grandmother Clotting Disorder No Family History Anesthesia Problems No Family History Malig Hyperthermia No Family History Social History Tobacco Use Smoking status: Never Smokeless tobacco: Never Vaping Use Vaping Use: Never used Substance Use Topics Alcohol use: No Drug use: No Prior to Admission medications as of 09/28/23 1059 Medication Sig Last Dose Taking FLUoxetine (PROZAC) 10 mg capsule take one capsule by mouth every day Taking Yes VITAMIN D 25 mcg (1,000 unit) cap take one capsule by mouth every day Taking Yes fluticasone (FLONASE) 50 mcg/actuation nasal spray USE 2 SPRAYS IN EACH NOSTRIL ONCE DAILY AND RINSE MOUTH AFTER USE Taking Yes Biotin 1 mg tab TAKE ONE TABLET BY MOUTH EVERY DAY Taking Yes busPIRone (BUSPAR) 5 mg tablet Take one tablet by mouth three times a day as needed for panic attacks Taking Yes No medication comments found. ALLERGIES Allergen Reactions Penicillin G Hives Cephalosporins Swelling, Itching Also felt like skin was on fire Claritin [Loratadin* Rash Objective PHYSICAL EXAM: (if completed, exam performed via video enabled technology) General: Alert and appropriate; in no acute distress; well-hydrated; well-nourished; happy, smiling, interactive. Skin: normal color, no rash or lesions. HEENT: Normocephalic; no abnormality or lesions noted. No ocular injection; visual acuity is grossly normal. Hearing grossly normal. Mucous membranes moist and pink. Full neck ROM, no cervical lymph nodes noted. Cardiovascular: Capillary refill < 3 seconds in BL upper extremities. Respiratory: Breathing non-labored. Equal chest rise with normal respiratory effort. Abdomen: No tenderness upon patient self palpation of abdomen. Extremities: No obvious deficit. Neurological: No obvious deficit. PAIN ASSESSMENT: VITALS: Ht 5' 1 [pt reported[ (1.55m) Wt 150 lb (68.0kg) LMP 04/08/2022 BMI 28.36 kg/(m^2). Diagnostic tests reviewed for today's visit: Lab Value Units Date High Low HB 14.4 g/dL 05/25/2023 15.5 11.5 HCT 45.4 % 05/25/2023 46.0 36.0 WBC 7.45 k/uL 05/25/2023 11.00 3.70 PLT 386 k/uL 05/25/2023 400 150 NA 141 mmol/L 05/25/2023 144 136 K 4.4 mmol/L 05/25/2023 5.1 3.7 GLUC 62 mg/dL 05/25/2023 99 74 BUN 10 mg/dL 05/25/2023 21 7 CREAT 0.62 mg/dL 05/25/2023 0.96 0.58 PTSEC No results within date range. INR No results within date range. APTT No results within date range. ALT 29 U/L 05/25/2023 38 7 AST 28 U/L 05/25/2023 35 13 TBILI 0.3 mg/dL 05/25/2023 1.3 0.2 TSH 1.300 mIU/L 05/25/2023 4.200 0.270 Lab Value Units Date High Low HCGQT No results within date range. UHCG No results within date range. HCG, BODY* No results within date range. Lab Value Units Date High Low ABORHD No results within date range. ABSCREEN No results within date range. Hemoglobin A1C (%) Date Value 05/25/2023 5.1 No results found for this or any previous visit (from the past 8760 hour(s)). No results found for this or any previous visit (from the past 88154 hour(s)). Prepared for Surgery: optimally prepared for surgery. Labs/EKG not indicated per [facility] protocol. CONSULTS: Patient does not require consults for optimization at this time Planned Anesthetic: anesthesia choice The Following Tests/Procedures Have Been Initiated: No orders of the defined types were placed in this encounter. Instructions Given to Patient: Patient given verbal instructions and voices comprehension and compliance. Copy sent electronically via My Chart, email, or mobile device. I spent more than 0-20 minutes [id number] with the patient and over half the time was devoted to counseling and/or coordination of care. This is a virtual visit. It required patient-provider interaction for the medical decision making as documented above. SIGNATURE: Viv Zee APRN.CNP PATIENT NAME: Sanford Sin DATE: September 28, 2023 TIME: 10:51 AM PAGER/CONTACT #: documented in this encounter [facility] 09-22-2023 Note HNO ID: [id number] Author: Alejandrina Tinsley MD Service: ? Author Type: Physician Type: Progress Notes Filed: 09/22/2023 11:56 AM Note Text: General Surgery Consult Note PATIENT NAME: Sanford Sin Consultation requested by Neena Cary APRN for an opinion regarding left chest wall lipoma. My final recommendations will be communicated back to the requesting physician by way of shared Medical record or letter to requesting physician via US mail. Assessment ASSESSMENT/PLAN: (D17.1) Lipoma of torso (primary encounter diagnosis) Sanfodr presents with a large lipoma of her left chest wall. This is symptomatic secondary to its position at the bra line. We discussed proceeding with excision in the OR. Risks including bleeding, infection, and recurrence were explained and she would like to proceed. Office Visit on 09/22/23 SURGICAL REQUEST - ELECTIVE (05/2020) SUBJECTIVE CHIEF COMPLAINT: Patient presents with: Consult: Mass of lower outer quadrant of left breast INTERVAL HISTORY OF PRESENT ILLNESS: Sanford is a 33-year-old female who presents with a left chest wall mass. This has been present for the past year. It is starting to cause pain due to its location at the bra line. She has had to change her bra. She denies breast mass or nipple discharge. She has never had breast problems in the past. Family history negative for breast or gynecologic malignancies. She has not been on hormones. Mammogram and ultrasound were performed. She has a large lipoma of the left chest wall. She was referred for surgical management. HISTORIES: PAST MEDICAL HISTORY Diagnosis Date Allergic rhinitis, cause unspecified Anemia WITH EVERY Depression 08/21/2014 HSIL (high grade squamous intraepithelial lesion) on Pap smear of cervix 10/11/13 Papanicolaou smear of cervix with low grade squamous intraepithelial lesion (LGSIL) 2011 PMH - PAST MEDICAL HISTORY OF 06/11 normal color vision PMH - PAST MEDICAL HISTORY OF collapsed lung at depression with last . 08/22/13 PAST SURGICAL HISTORY Procedure Laterality Date COLPOSCOPY 10/31/2013 GOOD 2 INSERTION OF IUD 07/06/2011 mirenaAND REMOVAL LEEP PROCEDURE (EQUIPMENT SERVICE ENGINEER DEPT)_*FL 12/05/2013 SALPINGECTOMY 09/14/2018 Laparoscopic Bilateral salpingectomy TONSILLECTOMY AND ADENOIDECTOMY VAGINAL HYSTERECTOMY 04/22/2022 LAVH, cystoscopy- adenomyosis ALLERGIES: Penicillin G, Cephalosporins, and Claritin [Loratadine] MEDICATIONS: Current Outpatient Medications Medication Sig FLUoxetine (PROZAC) 10 mg capsule take one capsule by mouth every day VITAMIN D 25 mcg (1,000 unit) cap take one capsule by mouth every day fluticasone (FLONASE) 50 mcg/actuation nasal spray USE 2 SPRAYS IN EACH NOSTRIL ONCE DAILY AND RINSE MOUTH AFTER USE Biotin 1 mg tab TAKE ONE TABLET BY MOUTH EVERY DAY busPIRone (BUSPAR) 5 mg tablet Take one tablet by mouth three times a day as needed for panic attacks No current facility-administered medications for this visit. FAMILY HISTORY Problem Relation Age of Onset Diabetes Maternal Grandmother Psychiatry Maternal Grandmother Stroke Maternal Grandmother Heart Maternal Grandfather later in life (age 79) other (cancer-intestines) Maternal Grandfather type unknown Diabetes Paternal Grandmother Lipids Mother Asthma Son Asthma Daughter Asthma Daughter Diabetes Maternal Aunt Asthma Son Social History Tobacco Use Smoking status: Never Smokeless tobacco: Never Vaping Use Vaping Use: Never used Substance Use Topics Alcohol use: No Drug use: No OBJECTIVE PHYSICAL EXAM: BP 110/79 Pulse 89 Ht 5' 2 (1.58m) Wt 145 lb 11.2 oz (66.1kg) SpO2 98% LMP 04/08/2022 BMI 26.64 kg/(m2). General: Well developed, well-nourished, female in no distress HEENT: Normocephalic, atraumatic. Extraocular movements intact. Sclera are nonicteric. Breasts: No breast mass palpated. There is a large subcutaneous mass of the lower outer left breast/chest wall consistent with lipoma. This measures 8 cm. This is located at the bra line. Heart: Regular rate and rhythm, no murmur Lungs: Clear to auscultation without wheezes Extremities: No edema Neurologic: Alert, oriented, and appropriate. Neurologic exam is symmetric and nonfocal. DATA: Diagnostic tests reviewed for today's visit: Mammogram and US reviewed: There is no sonographic evidence of malignancy. The 6.6 cm x 2.2 cm x 6.8 cm oval lesion in the left breast is consistent with a lipoma and is benign. Alejandrina Tinsley MD [facility] 09-21-2023 Note HNO ID: [id number] Author: Pamela Alvarado RDMS Service: ? Author Type: Cotton Inspector Type: Progress Notes Filed: 09/21/2023 2:23 PM Note Text: Radiology Service Progress Note PATIENT NAME: Sanford Sin DATE OF SERVICE: September 21, 2023 TIME: 2:22 PM PATIENT IDENTITY VERIFICATION COMPLETED USING TWO (2) IDENTIFIERS: Name and Date of confirmed by patient verbally. FALL SCREENING: Has the patient had 2 falls in the last year or 1 fall with injury or currently using an Ambulatory Assistive Device (Walker, Cane, Wheelchair, Crutches, etc.)? No PATIENT GENDER DATA: Female. status: : No status: NO. PATIENT RELEVANT IMPLANT DATA REVIEWED: Not Applicable RADIOLOGY DEPARTMENT: Ultrasound PERIPHERAL IV DATA: Not applicable SIGNED BY: Pamela Alvarado RDMS September 21, 2023 2:22 PM [facility] 09-21-2023 Note HNO ID: [id number] Author: Roger Kim Mammo Tech Service: ? Author Type: Technologist Type: Progress Notes Filed: 09/21/2023 8:30 AM Note Text: Radiology Service Progress Note PATIENT NAME: Sanford Sin DATE OF SERVICE: September 21, 2023 TIME: 8:27 AM PATIENT IDENTITY VERIFICATION COMPLETED USING TWO (2) IDENTIFIERS: Name and Date of confirmed by patient verbally. FALL SCREENING: Has the patient had 2 falls in the last year or 1 fall with injury or currently using an Ambulatory Assistive Device (Walker, Cane, Wheelchair, Crutches, etc.)? No PATIENT GENDER DATA: Female. status: : No status: NO. PATIENT RELEVANT IMPLANT DATA REVIEWED: Not Applicable RADIOLOGY DEPARTMENT: Mammography PERIPHERAL IV DATA: Not applicable SIGNED BY: Linda Hoffman September 21, 2023 8:27 AM [facility] 09-20-2023 Miscellaneous Notes Patient has been identified by name and date of : No Patient phones for refill(s): Requested Prescriptions Pending Prescriptions Disp Refills FLUoxetine (PROZAC) 10 mg capsule [Pharmacy Med Name: FLUOXETINE HCL 10MG CAPS] 30 capsule 1 Sig: take one capsule by mouth every day Date of last office visit in primary care: 07/08/2023 Date of next office visit in primary care: 01/06/2024 Last 2 Encounter Wt Readings: Date: Wt: 09/14/2023 69.7 kg (153 lb 9.6 oz) 08/29/2023 65.8 kg (145 lb) Previous labs/tests for medication: Not applicable Please advise. Thank you. Ana M Farmer. documented in this encounter [facility] 09-19-2023 Miscellaneous Notes Needs annual follow up for further refills. Thank you Elsa Beard APRN.TRANSMISSION SUPERINTENDENT Patient has been identified by name and date of : No Patient phones for refill(s): Requested Prescriptions Pending Prescriptions Disp Refills VITAMIN D 25 mcg (1,000 unit) cap [Pharmacy Med Name: D3-1000 25 MCG(1000 UT) CAPS] 90 capsule 3 Sig: take one capsule by mouth every day Date of last office visit in primary care: 07/31/2021 Date of next office visit in primary care: Visit date not found Last 2 Encounter Wt Readings: Date: Wt: 09/14/2023 69.7 kg (153 lb 9.6 oz) 08/29/2023 65.8 kg (145 lb) Previous labs/tests for medication: Not applicable Please advise. Thank you. Ana M Farmer. documented in this encounter [facility] 09-14-2023 Note HNO ID: [id number] Author: Rock Wan PA Service: ? Author Type: Physician Guard Lieutenant Type: Progress Notes Filed: 09/14/2023 12:03 PM Note Text: This note was created using [employer]. Nura Sin is a 33 year old female. HPI 33-year-old female presents for congestion, cough, left ear pain, sore throat. Symptoms started 3 days ago. She states she started with nasal congestion and cough. Left ear pain started following that. She states that she started having a sore throat today. She denies any fevers. No sick contacts that she is aware of. No chest pain or shortness of breath. She took a cold and flu medication [id number]. No other complaint. PAST MEDICAL HISTORY Diagnosis Date Allergic rhinitis, cause unspecified Anemia WITH EVERY Depression 08/21/2014 HSIL (high grade squamous intraepithelial lesion) on Pap smear of cervix 10/11/13 Papanicolaou smear of cervix with low grade squamous intraepithelial lesion (LGSIL) 2011 PMH - PAST MEDICAL HISTORY OF 06/11 normal color vision PMH - PAST MEDICAL HISTORY OF collapsed lung at depression with last . 08/22/13 PAST SURGICAL HISTORY Procedure Laterality Date COLPOSCOPY 10/31/2013 GOOD 2 INSERTION OF IUD 07/06/2011 mirenaAND REMOVAL LEEP PROCEDURE (EQUIPMENT SERVICE ENGINEER DEPT)_*FL 12/05/2013 SALPINGECTOMY 09/14/2018 Laparoscopic Bilateral salpingectomy TONSILLECTOMY AND ADENOIDECTOMY VAGINAL HYSTERECTOMY 04/22/2022 [facility], cystoscopy- adenomyosis ALLERGIES Penicillin G, Cephalosporins, and Claritin [Loratadine] MEDICATIONS FLUoxetine (PROZAC) 10 mg capsule Take 1 capsule by mouth once daily. fluticasone (FLONASE) 50 mcg/actuation nasal spray USE 2 SPRAYS IN EACH NOSTRIL ONCE DAILY AND RINSE MOUTH AFTER USE VITAMIN D 25 mcg (1,000 unit) cap TAKE ONE CAPSULE BY MOUTH EVERY DAY Biotin 1 mg tab TAKE ONE TABLET BY MOUTH EVERY DAY busPIRone (BUSPAR) 5 mg tablet Take one tablet by mouth three times a day as needed for panic attacks FAMILY HISTORY Problem Relation Age of Onset Diabetes Maternal Grandmother Psychiatry Maternal Grandmother Stroke Maternal Grandmother Heart Maternal Grandfather later in life (age 79) other (cancer-intestines) Maternal Grandfather type unknown Diabetes Paternal Grandmother Lipids Mother Asthma Son Asthma Daughter Asthma Daughter Diabetes Maternal Aunt Asthma Son Social History Tobacco Use Smoking status: Never Smokeless tobacco: Never Vaping Use Vaping Use: Never used Substance Use Topics Alcohol use: No Drug use: No Review of Systems Constitutional: Negative for chills and fever. HENT: Positive for congestion, ear pain and sore throat. Respiratory: Positive for cough. Negative for shortness of breath. Cardiovascular: Negative for chest pain. Gastrointestinal: Negative for diarrhea and vomiting. Objective BP 125/84 Pulse (!) 130 Temp 36.5 ?C (97.7 ?F) Resp 18 Wt 69.7 kg (153 lb 9.6 oz) LMP 04/08/2022 SpO2 98% BMI 28.09 kg/m? Physical Exam Vitals and nursing note reviewed. Constitutional: General: She is not in acute distress. Appearance: Normal appearance. She is not toxic-appearing. HENT: Right Ear: Ear canal normal. A middle ear effusion is present. Left Ear: Ear canal normal. A middle ear effusion is present. Ears: Comments: Small amount of clear fluid behind TMs bilaterally. No signs of infection. Nose: Congestion present. Mouth/Throat: Mouth: Mucous membranes are moist. Pharynx: Posterior oropharyngeal erythema present. No oropharyngeal exudate. Tonsils: No tonsillar exudate. Eyes: Conjunctiva/sclera: Conjunctivae normal. Cardiovascular: Rate and Rhythm: Regular rhythm. Tachycardia present. Comments: Nursing noted patient's heart rate at 130. On my exam it is 100 bpm. Pulmonary: Effort: Pulmonary effort is normal. Breath sounds: Normal breath sounds. Neurological: Mental Status: She is alert. Assessment and Plan ASSESSMENT/PLAN: 1. URI, acute - ICD9: 465.9, ICD10: J06.9 (primary diagnosis) - Discussed viral etiology and rationale for treatment. - Symptomatic treatment with prn analgesia - Supportive care with fluids and rest -Recommend Flonase to help with congestion and ear pressure. May continue OTC cold and flu medication. - COVID AND INFLUENZA A/B AND RSV NAAT, ROUTINE 2. Sore throat - ICD9: 462, ICD10: J02.9 - suspect viral - Group A strep molecular testing negative - Discussed supportive care treatment with fluids, rest and analgesia. - STREP A MOLECULAR (POC) Nursing noted patient's heart rate at 130. On my exam it is 100 bpm-regular rhythm. No chest pain. No shortness of breath. No lightheadedness. Advised patient if any symptoms of chest pain, shortness of breath, lightheaded, palpitations, go to ER. Diagnosis and treatment plan were discussed and questions were answered to the patient's satisfaction. Pt (more content not included)... [facility] 09-14-2023 Instructions Rock Wan PA - 09/14/2023 12:01 PM EST Rest, increase water intake Motrin or Tylenol as needed for fever or pain. Salt water gargles, chloraseptic spray or lozenges as needed for sore throat. Warm beverages, honey. Nasal saline spray as needed Cool mist humidifier at night A cold normally lasts 7-10 days. If your symptoms are lasting longer, develop fever, or worsening by that time instead of improving then return to clinic or follow up with PCP for re-evaluation. Tylenol (generic acetaminophen) 500 mg-2 tabs every 8 hrs. as needed for fever and aches Ibuprofen 600 mg (3-200mg tablets) every 6 hours -Mucinex (generic is fine) Guaifenesin 1200 mg twice daily to help with cough and to thin out mucus documented in this encounter [facility] 09-14-2023 History of Present illness Narrative This note was created using Fuel ([email or web address]). Subjective Sanford Sin is a 33 year old female. HPI 33-year-old female presents for congestion, cough, left ear pain, sore throat. Symptoms started 3 days ago. She states she started with nasal congestion and cough. Left ear pain started following that. She states that she started having a sore throat today. She denies any fevers. No sick contacts that she is aware of. No chest pain or shortness of breath. She took a cold and flu medication [id number]. No other complaint. PAST MEDICAL HISTORY Diagnosis Date Allergic rhinitis, cause unspecified Anemia WITH EVERY Depression 08/21/2014 HSIL (high grade squamous intraepithelial lesion) on Pap smear of cervix 10/11/13 Papanicolaou smear of cervix with low grade squamous intraepithelial lesion (LGSIL) 2011 PMH - PAST MEDICAL HISTORY OF 06/11 normal color vision PMH - PAST MEDICAL HISTORY OF collapsed lung at depression with last . 08/22/13 PAST SURGICAL HISTORY Procedure Laterality Date COLPOSCOPY 10/31/2013 GOOD 2 INSERTION OF IUD 07/06/2011 mirenaAND REMOVAL LEEP PROCEDURE (EQUIPMENT SERVICE ENGINEER DEPT)_*FL 12/05/2013 SALPINGECTOMY 09/14/2018 Laparoscopic Bilateral salpingectomy TONSILLECTOMY & ADENOIDECTOMY <AGE 11 age 9 VAGINAL HYSTERECTOMY 04/22/2022 [facility], cystoscopy- adenomyosis ALLERGIES Penicillin G, Cephalosporins, and Claritin [Loratadine] MEDICATIONS FLUoxetine (PROZAC) 10 mg capsule Take 1 capsule by mouth once daily. fluticasone (FLONASE) 50 mcg/actuation nasal spray USE 2 SPRAYS IN EACH NOSTRIL ONCE DAILY AND RINSE MOUTH AFTER USE VITAMIN D 25 mcg (1,000 unit) cap TAKE ONE CAPSULE BY MOUTH EVERY DAY Biotin 1 mg tab TAKE ONE TABLET BY MOUTH EVERY DAY busPIRone (BUSPAR) 5 mg tablet Take one tablet by mouth three times a day as needed for panic attacks FAMILY HISTORY Problem Relation Age of Onset Diabetes Maternal Grandmother Psychiatry Maternal Grandmother Stroke Maternal Grandmother Heart Maternal Grandfather later in life (age 79) other (cancer-intestines) Maternal Grandfather type unknown Diabetes Paternal Grandmother Lipids Mother Asthma Son Asthma Daughter Asthma Daughter Diabetes Maternal Aunt Asthma Son Social History Tobacco Use Smoking status: Never Smokeless tobacco: Never Vaping Use Vaping Use: Never used Substance Use Topics Alcohol use: No Drug use: No Review of Systems Constitutional: Negative for chills and fever. HENT: Positive for congestion, ear pain and sore throat. Respiratory: Positive for cough. Negative for shortness of breath. Cardiovascular: Negative for chest pain. Gastrointestinal: Negative for diarrhea and vomiting. Objective BP 125/84 Pulse (!) 130 Temp 36.5 C (97.7 F) Resp 18 Wt 69.7 kg (153 lb 9.6 oz) LMP 04/08/2022 SpO2 98% BMI 28.09 kg/m Physical Exam Vitals and nursing note reviewed. Constitutional: General: She is not in acute distress. Appearance: Normal appearance. She is not toxic-appearing. HENT: Right Ear: Ear canal normal. A middle ear effusion is present. Left Ear: Ear canal normal. A middle ear effusion is present. Ears: Comments: Small amount of clear fluid behind TMs bilaterally. No signs of infection. Nose: Congestion present. Mouth/Throat: Mouth: Mucous membranes are moist. Pharynx: Posterior oropharyngeal erythema present. No oropharyngeal exudate. Tonsils: No tonsillar exudate. Eyes: Conjunctiva/sclera: Conjunctivae normal. Cardiovascular: Rate and Rhythm: Regular rhythm. Tachycardia present. Comments: Nursing noted patient's heart rate at 130. On my exam it is 100 bpm. Pulmonary: Effort: Pulmonary effort is normal. Breath sounds: Normal breath sounds. Neurological: Mental Status: She is alert. Assessment and Plan ASSESSMENT/PLAN: 1. URI, acute - ICD9: 465.9, ICD10: J06.9 (primary diagnosis) - Discussed viral etiology and rationale for treatment. - Symptomatic treatment with prn analgesia - Supportive care with fluids and rest -Recommend Flonase to help with congestion and ear pressure. May continue OTC cold and flu medication. - COVID & INFLUENZA A/B & RSV NAAT, ROUTINE 2. Sore throat - ICD9: 462, ICD10: J02.9 - suspect viral - Group A strep molecular testing negative - Discussed supportive care treatment with fluids, rest and analgesia. - STREP A MOLECULAR (POC) Nursing noted patient's heart rate at 130. On my exam it is 100 bpm-regular rhythm. No chest pain. No shortness of breath. No lightheadedness. Advised patient if any symptoms of chest pain, shortness of breath, lightheaded, palpitations, go to ER. Diagnosis and treatment plan were discussed and questions were answered to the patient's satisfaction. Pt acknowledged understanding of concepts and follow up plan. Specific signs and symptoms that would indicate the need for higher level of care were discussed in detail warranting prompt ER evaluation. JOSE Flores documented in this encounter [facility] 08-29-2023 Note HNO ID: [id number] Author: Neena Cary APRN.TRANSMISSION SUPERINTENDENT Service: ? Author Type: Nurse Practitioner Type: Progress Notes Filed: 08/29/2023 9:54 AM Note Text: BREAST LUMP HISTORY: This is a 33 year old female Presents with breast mass left Mass has been present for 1 years- previous ultrasound show fatty tumor Tenderness Yes, becoming more painful Change in sizeNo Caffeine use Yes Last [id number] normal Any previous breast surgery No Any family history breast disease/ breast cancer No OB History T5 L5 SAB0 IAB0 Ectopic0 Multiple0 Live Births5 PAST MEDICAL HISTORY Diagnosis Date Allergic rhinitis, cause unspecified Anemia WITH EVERY Depression 08/21/2014 HSIL (high grade squamous intraepithelial lesion) on Pap smear of cervix 10/11/13 Papanicolaou smear of cervix with low grade squamous intraepithelial lesion (LGSIL) 2011 PMH - PAST MEDICAL HISTORY OF 06/11 normal color vision PMH - PAST MEDICAL HISTORY OF collapsed lung at depression with last . 08/22/13 PAST SURGICAL HISTORY Procedure Laterality Date COLPOSCOPY 10/31/2013 GOOD 2 INSERTION OF IUD 07/06/2011 mirenaAND REMOVAL LEEP PROCEDURE (EQUIPMENT SERVICE ENGINEER DEPT)_*FL 12/05/2013 SALPINGECTOMY 09/14/2018 Laparoscopic Bilateral salpingectomy TONSILLECTOMY AND ADENOIDECTOMY VAGINAL HYSTERECTOMY 04/22/2022 [facility], cystoscopy- adenomyosis FAMILY HISTORY Problem Relation Age of Onset Diabetes Maternal Grandmother Psychiatry Maternal Grandmother Stroke Maternal Grandmother Heart Maternal Grandfather later in life (age 79) other (cancer-intestines) Maternal Grandfather type unknown Diabetes Paternal Grandmother Lipids Mother Asthma Son Asthma Daughter Asthma Daughter Diabetes Maternal Aunt Asthma Son SOCIAL HISTORY Social History Tobacco Use Smoking status: Never Smokeless tobacco: Never Vaping Use Vaping Use: Never used Substance Use Topics Alcohol use: No Drug use: No PAST SURGICAL HISTORY Procedure Laterality Date COLPOSCOPY 10/31/2013 GOOD 2 INSERTION OF IUD 07/06/2011 mirenaAND REMOVAL LEEP PROCEDURE (EQUIPMENT SERVICE ENGINEER DEPT)_*FL 12/05/2013 SALPINGECTOMY 09/14/2018 Laparoscopic Bilateral salpingectomy TONSILLECTOMY AND ADENOIDECTOMY VAGINAL HYSTERECTOMY 04/22/2022 [facility], cystoscopy- adenomyosis Current Outpatient Medications Medication Sig FLUoxetine (PROZAC) 10 mg capsule Take 1 capsule by mouth once daily. fluticasone (FLONASE) 50 mcg/actuation nasal spray USE 2 SPRAYS IN EACH NOSTRIL ONCE DAILY AND RINSE MOUTH AFTER USE VITAMIN D 25 mcg (1,000 unit) cap TAKE ONE CAPSULE BY MOUTH EVERY DAY Biotin 1 mg tab TAKE ONE TABLET BY MOUTH EVERY DAY busPIRone (BUSPAR) 5 mg tablet Take one tablet by mouth three times a day as needed for panic attacks No current facility-administered medications for this visit. Allergies As of Date: 08/29/2023 Allergen Noted Reaction PENICILLIN G 06/22/2005 Hives CEPHALOSPORINS 04/08/2010 Swelling and Itching CLARITIN [LORATADINE] 01/08/2011 Rash Fully Assessed 08/29/2023 EXAMINATION: There is no concerning cervical, supraclavicular, or axillary lymphadenopathy. She has no fibrocystic changes. On the right are no dominant masses, skin changes or nipple discharge. On the left there is dominant fullness soft mobile mass about 5 cm x 3 cm in the 4-6 o'clock location, but no skin changes or nipple discharge. IMPRESSION: left breast mass. Most likely a lipoma PLAN: No orders found for this visit on 08/29/23. A discussion was held with the patient and patient who agrees with Imaging and referral to general surgery for removal of lipoma Neena Cary APRN.MANDEEP Medical Decision Making: Problems: Moderate: 1+ chronic illnesses with change Data: Unique test(s) ordered: 2 Risk: Low: Low risk from testing/treatment Medical Decision Making Level: 3 - Low [facility] 08-29-2023 History of Present illness Narrative BREAST LUMP HISTORY: This is a 33 year old female Presents with breast mass left Mass has been present for 1 years- previous ultrasound show fatty tumor Tenderness Yes, becoming more painful Change in sizeNo Caffeine use Yes Last [id number] normal Any previous breast surgery No Any family history breast disease/ breast cancer No OB History T5 L5 SAB0 IAB0 Ectopic0 Multiple0 Live Births5 PAST MEDICAL HISTORY Diagnosis Date Allergic rhinitis, cause unspecified Anemia WITH EVERY Depression 08/21/2014 HSIL (high grade squamous intraepithelial lesion) on Pap smear of cervix 10/11/13 Papanicolaou smear of cervix with low grade squamous intraepithelial lesion (LGSIL) 2011 PMH - PAST MEDICAL HISTORY OF 06/11 normal color vision PMH - PAST MEDICAL HISTORY OF collapsed lung at depression with last . 08/22/13 PAST SURGICAL HISTORY Procedure Laterality Date COLPOSCOPY 10/31/2013 GOOD 2 INSERTION OF IUD 07/06/2011 mirenaAND REMOVAL LEEP PROCEDURE (EQUIPMENT SERVICE ENGINEER DEPT)_*FL 12/05/2013 SALPINGECTOMY 09/14/2018 Laparoscopic Bilateral salpingectomy TONSILLECTOMY & ADENOIDECTOMY <AGE 11 age 9 VAGINAL HYSTERECTOMY 04/22/2022 [facility], cystoscopy- adenomyosis FAMILY HISTORY Problem Relation Age of Onset Diabetes Maternal Grandmother Psychiatry Maternal Grandmother Stroke Maternal Grandmother Heart Maternal Grandfather later in life (age 79) other (cancer-intestines) Maternal Grandfather type unknown Diabetes Paternal Grandmother Lipids Mother Asthma Son Asthma Daughter Asthma Daughter Diabetes Maternal Aunt Asthma Son SOCIAL HISTORY Social History Tobacco Use Smoking status: Never Smokeless tobacco: Never Vaping Use Vaping Use: Never used Substance Use Topics Alcohol use: No Drug use: No PAST SURGICAL HISTORY Procedure Laterality Date COLPOSCOPY 10/31/2013 GOOD 2 INSERTION OF IUD 07/06/2011 mirenaAND REMOVAL LEEP PROCEDURE (EQUIPMENT SERVICE ENGINEER DEPT)_*FL 12/05/2013 SALPINGECTOMY 09/14/2018 Laparoscopic Bilateral salpingectomy TONSILLECTOMY & ADENOIDECTOMY <AGE 11 age 9 VAGINAL HYSTERECTOMY 04/22/2022 LAV[facility], cystoscopy- adenomyosis Current Outpatient Medications Medication Sig FLUoxetine (PROZAC) 10 mg capsule Take 1 capsule by mouth once daily. fluticasone (FLONASE) 50 mcg/actuation nasal spray USE 2 SPRAYS IN EACH NOSTRIL ONCE DAILY AND RINSE MOUTH AFTER USE VITAMIN D 25 mcg (1,000 unit) cap TAKE ONE CAPSULE BY MOUTH EVERY DAY Biotin 1 mg tab TAKE ONE TABLET BY MOUTH EVERY DAY busPIRone (BUSPAR) 5 mg tablet Take one tablet by mouth three times a day as needed for panic attacks No current facility-administered medications for this visit. Allergies As of Date: 08/29/2023 Allergen Noted Reaction PENICILLIN G 06/22/2005 Hives CEPHALOSPORINS 04/08/2010 Swelling and Itching CLARITIN [LORATADINE] 01/08/2011 Rash Fully Assessed 08/29/2023 EXAMINATION: There is no concerning cervical, supraclavicular, or axillary lymphadenopathy. She has no fibrocystic changes. On the right are no dominant masses, skin changes or nipple discharge. On the left there is dominant fullness soft mobile mass about 5 cm x 3 cm in the 4-6 o'clock location, but no skin changes or nipple discharge. IMPRESSION: left breast mass. Most likely a lipoma PLAN: No orders found for this visit on 08/29/23. A discussion was held with the patient and patient who agrees with Imaging and referral to general surgery for removal of lipoma Neena Cary APRN.CNP Medical Decision Making: Problems: Moderate: 1+ chronic illnesses with change Data: Unique test(s) ordered: 2 Risk: Low: Low risk from testing/treatment Medical Decision Making Level: 3 - Low documented in this encounter [facility] 08-24-2023 Miscellaneous Notes Patient called and appointment scheduled. Giovanna Ricks RN She should be seen for appt- any provider is fine. I called patient and she said that lump has not gotten bigger but more sensitive. Denies any dimpling, redness or red streaks . Denies any discharge. Had diagnostic mammogram and breast US on 06/15/22. Do you want the patient to be seen first, mammogram or surgical consult. Please advise documented in this encounter [facility] 08-12-2023 Note HNO ID: [id number] Author: Veronika Mejia APRN.CNP Service: ? Author Type: Nurse Practitioner Type: Progress Notes Filed: 08/12/2023 10:25 AM Note Text: CC: No chief complaint on file. ANTONINO Sin is a 33 year old female who presents with complaint of possible UTI. These symptoms have been present for few days. Associated symptoms: burning and frequency Denies: fever, chills, sweats, abdominal pain, and flank pain Treatments: nothing The ROS was otherwise negative. PMH, Medications, labs, allergies, and recent past visits with PCP were reviewed and updated as able. PHYSICAL EXAM: LMP 04/08/2022 General: Well appearing and alert CV: Regular rate and rhythm without obvious murmur Lungs: clear to auscultation bilaterally Back: straight and symmetric Abdomen: soft, nontender, nondistended PAST MEDICAL HISTORY Diagnosis Date Allergic rhinitis, cause unspecified Anemia WITH EVERY Depression 08/21/2014 HSIL (high grade squamous intraepithelial lesion) on Pap smear of cervix 10/11/13 Papanicolaou smear of cervix with low grade squamous intraepithelial lesion (LGSIL) 2011 PMH - PAST MEDICAL HISTORY OF 06/11 normal color vision PMH - PAST MEDICAL HISTORY OF collapsed lung at depression with last . 08/22/13 PAST SURGICAL HISTORY Procedure Laterality Date COLPOSCOPY 10/31/2013 GOOD 2 INSERTION OF IUD 07/06/2011 mirenaAND REMOVAL LEEP PROCEDURE (EQUIPMENT SERVICE ENGINEER DEPT)_*FL 12/05/2013 SALPINGECTOMY 09/14/2018 Laparoscopic Bilateral salpingectomy TONSILLECTOMY AND ADENOIDECTOMY VAGINAL HYSTERECTOMY 04/22/2022 [facility], cystoscopy- adenomyosis ALLERGIES Penicillin G, Cephalosporins, and Claritin [Loratadine] MEDICATIONS FLUoxetine (PROZAC) 10 mg capsule Take 1 capsule by mouth once daily. fluticasone (FLONASE) 50 mcg/actuation nasal spray USE 2 SPRAYS IN EACH NOSTRIL ONCE DAILY AND RINSE MOUTH AFTER USE VITAMIN D 25 mcg (1,000 unit) cap TAKE ONE CAPSULE BY MOUTH EVERY DAY Biotin 1 mg tab TAKE ONE TABLET BY MOUTH EVERY DAY busPIRone (BUSPAR) 5 mg tablet Take one tablet by mouth three times a day as needed for panic attacks FAMILY HISTORY Problem Relation Age of Onset Diabetes Maternal Grandmother Psychiatry Maternal Grandmother Stroke Maternal Grandmother Heart Maternal Grandfather later in life (age 79) other (cancer-intestines) Maternal Grandfather type unknown Diabetes Paternal Grandmother Lipids Mother Asthma Son Asthma Daughter Asthma Daughter Diabetes Maternal Aunt Asthma Son Social History Tobacco Use Smoking status: Never Smokeless tobacco: Never Vaping Use Vaping Use: Never used Substance Use Topics Alcohol use: No Drug use: No ASSESSMENT/PLAN: 1. Recurrent UTI (urinary tract infection) - ICD9: 599.0, ICD10: N39.0 (primary diagnosis) - URINE CULTURE 2. Urinary frequency - ICD9: 788.41, ICD10: R35.0 Macrobid bid for 5 days Prescription instructions reviewed with patient as applicable. Potential red flag symptoms discussed with the patient. Reviewed appropriate action plan to take if red flag symptoms occur. Patient agreeable to treatment plan. Veronika Mejia APRN.[facility] 08-12-2023 History of Present illness Narrative CC: No chief complaint on file. HPI Sanford Sin is a 33 year old female who presents with complaint of possible UTI. These symptoms have been present for few days. Associated symptoms: burning and frequency Denies: fever, chills, sweats, abdominal pain, and flank pain Treatments: nothing The ROS was otherwise negative. PMH, Medications, labs, allergies, and recent past visits with PCP were reviewed and updated as able. PHYSICAL EXAM: LMP 04/08/2022 General: Well appearing and alert CV: Regular rate and rhythm without obvious murmur Lungs: clear to auscultation bilaterally Back: straight and symmetric Abdomen: soft, nontender, nondistended PAST MEDICAL HISTORY Diagnosis Date Allergic rhinitis, cause unspecified Anemia WITH EVERY Depression 08/21/2014 HSIL (high grade squamous intraepithelial lesion) on Pap smear of cervix 10/11/13 Papanicolaou smear of cervix with low grade squamous intraepithelial lesion (LGSIL) 2011 PMH - PAST MEDICAL HISTORY OF 06/11 normal color vision PMH - PAST MEDICAL HISTORY OF collapsed lung at depression with last . 08/22/13 PAST SURGICAL HISTORY Procedure Laterality Date COLPOSCOPY 10/31/2013 GOOD 2 INSERTION OF IUD 07/06/2011 mirenaAND REMOVAL LEEP PROCEDURE (EQUIPMENT SERVICE ENGINEER DEPT)_*FL 12/05/2013 SALPINGECTOMY 09/14/2018 Laparoscopic Bilateral salpingectomy TONSILLECTOMY & ADENOIDECTOMY <AGE 11 age 9 VAGINAL HYSTERECTOMY 04/22/2022 LAVH, cystoscopy- adenomyosis ALLERGIES Penicillin G, Cephalosporins, and Claritin [Loratadine] MEDICATIONS FLUoxetine (PROZAC) 10 mg capsule Take 1 capsule by mouth once daily. fluticasone (FLONASE) 50 mcg/actuation nasal spray USE 2 SPRAYS IN EACH NOSTRIL ONCE DAILY AND RINSE MOUTH AFTER USE VITAMIN D 25 mcg (1,000 unit) cap TAKE ONE CAPSULE BY MOUTH EVERY DAY Biotin 1 mg tab TAKE ONE TABLET BY MOUTH EVERY DAY busPIRone (BUSPAR) 5 mg tablet Take one tablet by mouth three times a day as needed for panic attacks FAMILY HISTORY Problem Relation Age of Onset Diabetes Maternal Grandmother Psychiatry Maternal Grandmother Stroke Maternal Grandmother Heart Maternal Grandfather later in life (age 79) other (cancer-intestines) Maternal Grandfather type unknown Diabetes Paternal Grandmother Lipids Mother Asthma Son Asthma Daughter Asthma Daughter Diabetes Maternal Aunt Asthma Son Social History Tobacco Use Smoking status: Never Smokeless tobacco: Never Vaping Use Vaping Use: Never used Substance Use Topics Alcohol use: No Drug use: No ASSESSMENT/PLAN: 1. Recurrent UTI (urinary tract infection) - ICD9: 599.0, ICD10: N39.0 (primary diagnosis) - URINE CULTURE 2. Urinary frequency - ICD9: 788.41, ICD10: R35.0 Macrobid bid for 5 days Prescription instructions reviewed with patient as applicable. Potential red flag symptoms discussed with the patient. Reviewed appropriate action plan to take if red flag symptoms occur. Patient agreeable to treatment plan. Veronika Mejia APRN.MANDEEP documented in this encounter [facility] 07-08-2023 Note HNO ID: [id number] Author: Jeff Barboza PA-C Service: ? Author Type: Physician Guard Lieutenant Type: Progress Notes Filed: 07/08/2023 10:42 AM Note Text: CC: Patient presents with: Follow Up: 6 week follow up-mood,prozac HPI Sanford Sin is a 32 year old female who presents today for next week follow-up depression/anxiety after restarting Prozac. States that her whole family including her mother, and kids all notice a difference. She is feeling less anxious about leaving the house, and she's actually doing more/surrounding herself with people more frequently. Patient reports that when she was a teen her sugars would drop so low that she would pass out. Occasionally has hypoglycemic episodes where she feels shaky, and some other symptoms -- and she now knows to intervene with food. Has used her 's glucometer and it's usually in the 60s. REVIEW OF SYSTEMS See HPI All other systems negative. PAST MEDICAL HISTORY Diagnosis Date Allergic rhinitis, cause unspecified Anemia WITH EVERY Depression 08/21/2014 HSIL (high grade squamous intraepithelial lesion) on Pap smear of cervix 10/11/13 Papanicolaou smear of cervix with low grade squamous intraepithelial lesion (LGSIL) 2011 PMH - PAST MEDICAL HISTORY OF 06/11 normal color vision PMH - PAST MEDICAL HISTORY OF collapsed lung at depression with last . 08/22/13 PAST SURGICAL HISTORY Procedure Laterality Date COLPOSCOPY 10/31/2013 GOOD 2 INSERTION OF IUD 07/06/2011 mirenaAND REMOVAL LEEP PROCEDURE (EQUIPMENT SERVICE ENGINEER DEPT)_*FL 12/05/2013 SALPINGECTOMY 09/14/2018 Laparoscopic Bilateral salpingectomy TONSILLECTOMY AND ADENOIDECTOMY VAGINAL HYSTERECTOMY 04/22/2022 LAVH, cystoscopy- adenomyosis ALLERGIES Penicillin G, Cephalosporins, and Claritin [Loratadine] MEDICATIONS FLUoxetine (PROZAC) 10 mg capsule take one capsule by mouth every day fluticasone (FLONASE) 50 mcg/actuation nasal spray USE 2 SPRAYS IN EACH NOSTRIL ONCE DAILY AND RINSE MOUTH AFTER USE VITAMIN D 25 mcg (1,000 unit) cap TAKE ONE CAPSULE BY MOUTH EVERY DAY Biotin 1 mg tab TAKE ONE TABLET BY MOUTH EVERY DAY busPIRone (BUSPAR) 5 mg tablet Take one tablet by mouth three times a day as needed for panic attacks FAMILY HISTORY Problem Relation Age of Onset Diabetes Maternal Grandmother Psychiatry Maternal Grandmother Stroke Maternal Grandmother Heart Maternal Grandfather later in life (age 79) other (cancer-intestines) Maternal Grandfather type unknown Diabetes Paternal Grandmother Lipids Mother Asthma Son Asthma Daughter Asthma Daughter Diabetes Maternal Aunt Asthma Son Social History Tobacco Use Smoking status: Never Smokeless tobacco: Never Vaping Use Vaping Use: Never used Substance Use Topics Alcohol use: No Drug use: No PHYSICAL EXAM BP 108/56 (BP Site: Left Arm, BP Position: Sitting, BP Cuff Size: Large Adult) Pulse 111 Resp 12 Ht 157.5 cm (5' 2 ) Wt 68.5 kg (151 lb) LMP 04/08/2022 SpO2 97% BMI 27.62 kg/m? General Appearance: well appearing, in no acute distress, alert Pysch: mood and affect broad and appropriate Skin: Skin color, texture, turgor normal for age; Lungs: Lungs clear to auscultation. No wheezing, rhonchi, rales. Heart: RRR without murmur, gallop, or rubs. No ectopy Abdomen: Normal abdominal exam Extremities: No gross deformities, significant edema, skin discoloration, clubbing or cyanosis. Neurological: Gait normal. No focal neurological deficits. Sensation grossly intact. Component Latest Ref Rng AND Units 05/25/2023 WBC 3.70 - 11.00 k/uL 7.45 RBC 3.90 - 5.20 m/uL 5.38 (H) Hemoglobin 11.5 - 15.5 g/dL 14.4 Hematocrit 36.0 - 46.0 % 45.4 MCV 80.0 - 100.0 fL 84.4 MCH 26.0 - 34.0 pg 26.8 MCHC 30.5 - 36.0 g/dL 31.7 RDW-CV 11.5 - 15.0 % 13.4 Platelet Count 150 - 400 k/uL 386 MPV 9.0 - 12.7 fL 9.6 Neut% % 61.8 Abs Neut (ANC) 1.45 - 7.50 k/uL 4.61 Lymph% % 28.7 Abs Lymph 1.00 - 4.00 k/uL 2.14 [place]% % 5.9 Abs [place] <0.87 k/uL 0.44 Eosin% % 2.6 Abs Eosin <0.46 k/uL 0.19 Baso% % 0.7 Abs Baso <0.11 k/uL 0.05 Immature Gran % % 0.3 IMMATURE GRANS (ABS) <0.10 k/uL <0.03 NRBC /100 WBC 0.0 Absolute nRBC <0.01 k/uL <0.01 DTYPE Auto Protein, Total 6.3 - 8.0 g/dL 7.2 Albumin 3.9 - 4.9 g/dL 4.7 Calcium 8.5 - 10.2 mg/dL 9.5 Bilirubin, Total 0.2 - 1.3 mg/dL 0.3 Alkaline Phosphatase 34 - 123 U/L 87 AST 13 - 35 U/L 28 ALT 7 - 38 U/L 29 Glucose 74 - 99 mg/dL 62 (L) BUN 7 - 21 mg/dL 10 Creatinine 0.58 - 0.96 mg/dL 0.62 Sodium 136 - 144 mmol/L 141 Potassium 3.7 - 5.1 mmol/L 4.4 Chloride 97 - 105 mmol/L 105 CO2 22 - 30 mmol/L 22 Anion Gap 9 - 18 mmol/L 14 eGFR >=60 mL/min/1.73mA? 121 Cholesterol, Total <200 mg/dL 210 (H) Triglyceride <150 mg/dL 161 (H) HDL Cholesterol >39 mg/dL 42 Non HDL Cholesterol <130 mg/dL 168 (H) Fasting Time hrs 12 VLDL Cholesterol <30 mg/dL 32 (H) TC:HDL (more content not included)... [facility] 07-08-2023 History of Present illness Narrative CC: Patient presents with: Follow Up: 6 week follow up-mood,prozac HPI Sanford Sin is a 32 year old female who presents today for next week follow-up depression/anxiety after restarting Prozac. States that her whole family including her mother, and kids all notice a difference. She is feeling less anxious about leaving the house, and she's actually doing more/surrounding herself with people more frequently. Patient reports that when she was a teen her sugars would drop so low that she would pass out. Occasionally has hypoglycemic episodes where she feels shaky, and some other symptoms -- and she now knows to intervene with food. Has used her 's glucometer and it's usually in the 60s. REVIEW OF SYSTEMS See HPI All other systems negative. PAST MEDICAL HISTORY Diagnosis Date Allergic rhinitis, cause unspecified Anemia WITH EVERY Depression 08/21/2014 HSIL (high grade squamous intraepithelial lesion) on Pap smear of cervix 10/11/13 Papanicolaou smear of cervix with low grade squamous intraepithelial lesion (LGSIL) 2011 PMH - PAST MEDICAL HISTORY OF 06/11 normal color vision PMH - PAST MEDICAL HISTORY OF collapsed lung at depression with last . 08/22/13 PAST SURGICAL HISTORY Procedure Laterality Date COLPOSCOPY 10/31/2013 GOOD 2 INSERTION OF IUD 07/06/2011 mirenaAND REMOVAL LEEP PROCEDURE (EQUIPMENT SERVICE ENGINEER DEPT)_*FL 12/05/2013 SALPINGECTOMY 09/14/2018 Laparoscopic Bilateral salpingectomy TONSILLECTOMY & ADENOIDECTOMY <AGE 11 age 9 VAGINAL HYSTERECTOMY 04/22/2022 LAVH, cystoscopy- adenomyosis ALLERGIES Penicillin G, Cephalosporins, and Claritin [Loratadine] MEDICATIONS FLUoxetine (PROZAC) 10 mg capsule take one capsule by mouth every day fluticasone (FLONASE) 50 mcg/actuation nasal spray USE 2 SPRAYS IN EACH NOSTRIL ONCE DAILY AND RINSE MOUTH AFTER USE VITAMIN D 25 mcg (1,000 unit) cap TAKE ONE CAPSULE BY MOUTH EVERY DAY Biotin 1 mg tab TAKE ONE TABLET BY MOUTH EVERY DAY busPIRone (BUSPAR) 5 mg tablet Take one tablet by mouth three times a day as needed for panic attacks FAMILY HISTORY Problem Relation Age of Onset Diabetes Maternal Grandmother Psychiatry Maternal Grandmother Stroke Maternal Grandmother Heart Maternal Grandfather later in life (age 79) other (cancer-intestines) Maternal Grandfather type unknown Diabetes Paternal Grandmother Lipids Mother Asthma Son Asthma Daughter Asthma Daughter Diabetes Maternal Aunt Asthma Son Social History Tobacco Use Smoking status: Never Smokeless tobacco: Never Vaping Use Vaping Use: Never used Substance Use Topics Alcohol use: No Drug use: No PHYSICAL EXAM BP 108/56 (BP Site: Left Arm, BP Position: Sitting, BP Cuff Size: Large Adult) Pulse 111 Resp 12 Ht 157.5 cm (5' 2 ) Wt 68.5 kg (151 lb) LMP 04/08/2022 SpO2 97% BMI 27.62 kg/m General Appearance: well appearing, in no acute distress, alert Pysch: mood and affect broad and appropriate Skin: Skin color, texture, turgor normal for age; Lungs: Lungs clear to auscultation. No wheezing, rhonchi, rales. Heart: RRR without murmur, gallop, or rubs. No ectopy Abdomen: Normal abdominal exam Extremities: No gross deformities, significant edema, skin discoloration, clubbing or cyanosis. Neurological: Gait normal. No focal neurological deficits. Sensation grossly intact. Component Latest Ref Rng & Units 05/25/2023 WBC 3.70 - 11.00 k/uL 7.45 RBC 3.90 - 5.20 m/uL 5.38 (H) Hemoglobin 11.5 - 15.5 g/dL 14.4 Hematocrit 36.0 - 46.0 % 45.4 MCV 80.0 - 100.0 fL 84.4 MCH 26.0 - 34.0 pg 26.8 MCHC 30.5 - 36.0 g/dL 31.7 RDW-CV 11.5 - 15.0 % 13.4 Platelet Count 150 - 400 k/uL 386 MPV 9.0 - 12.7 fL 9.6 Neut% % 61.8 Abs Neut (ANC) 1.45 - 7.50 k/uL 4.61 Lymph% % 28.7 Abs Lymph 1.00 - 4.00 k/uL 2.14 [place]% % 5.9 Abs [place] <0.87 k/uL 0.44 Eosin% % 2.6 Abs Eosin <0.46 k/uL 0.19 Baso% % 0.7 Abs Baso <0.11 k/uL 0.05 Immature Gran % % 0.3 IMMATURE GRANS (ABS) <0.10 k/uL <0.03 NRBC /100 WBC 0.0 Absolute nRBC <0.01 k/uL <0.01 DTYPE Auto Protein, Total 6.3 - 8.0 g/dL 7.2 Albumin 3.9 - 4.9 g/dL 4.7 Calcium 8.5 - 10.2 mg/dL 9.5 Bilirubin, Total 0.2 - 1.3 mg/dL 0.3 Alkaline Phosphatase 34 - 123 U/L 87 AST 13 - 35 U/L 28 ALT 7 - 38 U/L 29 Glucose 74 - 99 mg/dL 62 (L) BUN 7 - 21 mg/dL 10 Creatinine 0.58 - 0.96 mg/dL 0.62 Sodium 136 - 144 mmol/L 141 Potassium 3.7 - 5.1 mmol/L 4.4 Chloride 97 - 105 mmol/L 105 CO2 22 - 30 mmol/L 22 Anion Gap 9 - 18 mmol/L 14 eGFR >=60 mL/min/1.73m 121 Cholesterol, Total <200 mg/dL 210 (H) Triglyceride <150 mg/dL 161 (H) HDL Cholesterol >39 mg/dL 42 Non HDL Cholesterol <130 mg/dL 168 (H) Fasting Time hrs 12 VLDL Cholesterol <30 mg/dL 32 (H) TC:HDL Ratio <5.10 5.00 LDL Cholesterol <100 mg/dL 136 (H) LDL:HDL Ratio <2.54 3.24 (H) Hemoglobin A1C 4.3 - 5.6 % 5.1 Estimated Average Glucose mg/dL 100 TSH 0.270 - 4.200 mIU/L 1.300 ASSESSMENT/PLAN: 1. Depression with anxiety - ICD9: 300.4, ICD10: F41.8 (primary diagnosis) Much improved back on Prozac 10 mg. Patient opting to see at this dosage at this time. Refills provided per patient request; will continue to monitor over time in the case dosage adjustment is required. - FLUOXETINE 10 MG CAPSULE 2. Hypoglycemia - ICD9: 251.2, ICD10: E16.2 As noted on recent labs, which patient states happens very erratically. Discussed lifestyle modification and dietary changes that she can make to assist with these issues. She was advised to keep a symptom log to keep track of the frequency. If it ends up becoming more problematic or more frequent, we will explore this further 3. Hypertriglyceridemia - ICD9: 272.1, ICD10: E78.1 - Improving control, still mildly elevated on most recent check (but was previously in the 300s) - Counseled on healthy diet and regular exercise Follow-up in 6 months for routine issues, sooner if other issues arise Prescription instructions reviewed with patient as applicable. Potential red flag symptoms discussed with the patient. Reviewed appropriate action plan to take if red flag symptoms occur. Patient agreeable to treatment plan. Jeff Barboza PA-C documented in this encounter [facility] 05-25-2023 Note HNO ID: [id number] Author: Jeff Barboza PA-C Service: ? Author Type: Physician Guard Lieutenant Type: Progress Notes Filed: 05/25/2023 11:02 AM Note Text: CC: Patient presents with: Depression: HPI Sanford Sin is a 32 year old female who presents today requesting restarting prozac for depression/anxiety. She was on Prozac about 1 year ago, but states Dr. Hooper suggested trialing off of it because scoring for anxiety/depression was rather low. Issues w/ motivation. Notes that she dreads doing things with family (moreso extended family). She is at home 24/ with her 4 year old who has a medical disability. Has 5 kids in total, and most all are in sports so that keeps her very busy. Has issues with sleep, wakes up in the middle of the night then takes a few hours to fall back to sleep. Typically gets about 5-7 hours of sleep. Has been on buspar for anxiety x years - still some overhwelm/anxious thoughts despite being on this. Has not seen a counselor since about 2009 because the facility moved. States she never heard back about labs as ordered in 08/31. Said Dr. Hooper was nervous about her weight at last visit. She attempts to work out M-W-F at least usually. Does a combination of cardio and weights. REVIEW OF SYSTEMS PSYCH: See HPI All other systems negative. PAST MEDICAL HISTORY Diagnosis Date Allergic rhinitis, cause unspecified Anemia WITH EVERY Depression 08/21/2014 HSIL (high grade squamous intraepithelial lesion) on Pap smear of cervix 10/11/13 Papanicolaou smear of cervix with low grade squamous intraepithelial lesion (LGSIL) 2011 PMH - PAST MEDICAL HISTORY OF 06/11 normal color vision PMH - PAST MEDICAL HISTORY OF collapsed lung at depression with last . 08/22/13 PAST SURGICAL HISTORY Procedure Laterality Date COLPOSCOPY 10/31/2013 GOOD 2 INSERTION OF IUD 07/06/2011 mirenaAND REMOVAL LEEP PROCEDURE (EQUIPMENT SERVICE ENGINEER DEPT)_*FL 12/05/2013 SALPINGECTOMY 09/14/2018 Laparoscopic Bilateral salpingectomy TONSILLECTOMY AND ADENOIDECTOMY VAGINAL HYSTERECTOMY 04/22/2022 LAVH, cystoscopy- adenomyosis ALLERGIES Penicillin G, Cephalosporins, and Claritin [Loratadine] MEDICATIONS fluticasone (FLONASE) 50 mcg/actuation nasal spray USE 2 SPRAYS IN EACH NOSTRIL ONCE DAILY AND RINSE MOUTH AFTER USE VITAMIN D 25 mcg (1,000 unit) cap TAKE ONE CAPSULE BY MOUTH EVERY DAY Biotin 1 mg tab TAKE ONE TABLET BY MOUTH EVERY DAY busPIRone (BUSPAR) 5 mg tablet Take one tablet by mouth three times a day as needed for panic attacks FAMILY HISTORY Problem Relation Age of Onset Diabetes Maternal Grandmother Psychiatry Maternal Grandmother Stroke Maternal Grandmother Heart Maternal Grandfather later in life (age 79) other (cancer-intestines) Maternal Grandfather type unknown Diabetes Paternal Grandmother Lipids Mother Asthma Son Asthma Daughter Asthma Daughter Diabetes Maternal Aunt Asthma Son Social History Tobacco Use Smoking status: Never Smokeless tobacco: Never Vaping Use Vaping Use: Never used Substance Use Topics Alcohol use: No Drug use: No PHYSICAL EXAM BP 124/76 (BP Site: Left Arm, BP Position: Sitting, BP Cuff Size: Large Adult) Pulse 81 Resp 12 Ht 157.5 cm (5' 2 ) Wt 69.9 kg (154 lb) LMP 04/08/2022 SpO2 98% BMI 28.17 kg/m? General Appearance: well appearing, in no acute distress, alert Pysch: mood and affect broad and appropriate Skin: Skin color, texture, turgor normal for age; Head: normocephalic, atraumatic Lymph nodes: No cervical lymphadenopathy Lungs: Lungs clear to auscultation. No wheezing, rhonchi, rales. Heart: RRR without murmur, gallop, or rubs. No ectopy Abdomen: Normal abdominal exam Extremities: No gross deformities, significant edema, skin discoloration, clubbing or cyanosis. Neurological: Gait normal. No focal neurological deficits. Sensation grossly intact. ASSESSMENT/PLAN: 1. Depression with anxiety - ICD9: 300.4, ICD10: F41.8 (primary diagnosis) Discussed various treatment options including pharmacologic management, counseling, as well as referral to behavioral health. Will restart prozac per pt request. Discussed medication indications, proper use, and potential adverse effects. All questions and concerns addressed to patient satisfaction. Will reassess efficacy, and make any further dosage adjustments in 4-6 weeks. - DEPRESSION SCREENING/ASSESSMENT - FLUOXETINE 10 MG CAPSULE - CBC + DIFF - COMP METABOLIC PANEL 2. Hypertriglyceridemia - ICD9: 272.1, ICD10: E78.1 - Control undetermined, due for labs - Counseled on healthy diet and regular exercise - Discussed need for and benefit of weight loss. BMI 28.17 kg/(m2) - HGB A1C - LIPID PANEL BASIC 3. Family history of diabetes mellitus in mother - ICD9: V18.0, ICD10: Z83.3 Will check labs, including CMP and A1c - COMP METABOLIC PANEL - TSH BLD - HGB A1C - LIPID P (more content not included)... [facility] 05-25-2023 History of Present illness Narrative CC: Patient presents with: Depression: HPI Sanford Sin is a 32 year old female who presents today requesting restarting prozac for depression/anxiety. She was on Prozac about 1 year ago, but states Dr. Hooper suggested trialing off of it because scoring for anxiety/depression was rather low. Issues w/ motivation. Notes that she dreads doing things with family (moreso extended family). She is at home 02/05 with her 4 year old who has a medical disability. Has 5 kids in total, and most all are in sports so that keeps her very busy. Has issues with sleep, wakes up in the middle of the night then takes a few hours to fall back to sleep. Typically gets about 5-7 hours of sleep. Has been on buspar for anxiety x years - still some overhwelm/anxious thoughts despite being on this. Has not seen a counselor since about 2009 because the facility moved. States she never heard back about labs as ordered in 08/31. Said Dr. Hooper was nervous about her weight at last visit. She attempts to work out M-W-F at least usually. Does a combination of cardio and weights. REVIEW OF SYSTEMS PSYCH: See HPI All other systems negative. PAST MEDICAL HISTORY Diagnosis Date Allergic rhinitis, cause unspecified Anemia WITH EVERY Depression 08/21/2014 HSIL (high grade squamous intraepithelial lesion) on Pap smear of cervix 10/11/13 Papanicolaou smear of cervix with low grade squamous intraepithelial lesion (LGSIL) 2011 PMH - PAST MEDICAL HISTORY OF 06/11 normal color vision PMH - PAST MEDICAL HISTORY OF collapsed lung at depression with last . 08/22/13 PAST SURGICAL HISTORY Procedure Laterality Date COLPOSCOPY 10/31/2013 GOOD 2 INSERTION OF IUD 07/06/2011 mirenaAND REMOVAL LEEP PROCEDURE (EQUIPMENT SERVICE ENGINEER DEPT)_*FL 12/05/2013 SALPINGECTOMY 09/14/2018 Laparoscopic Bilateral salpingectomy TONSILLECTOMY & ADENOIDECTOMY <AGE 11 age 9 VAGINAL HYSTERECTOMY 04/22/2022 LAVH, cystoscopy- adenomyosis ALLERGIES Penicillin G, Cephalosporins, and Claritin [Loratadine] MEDICATIONS fluticasone (FLONASE) 50 mcg/actuation nasal spray USE 2 SPRAYS IN EACH NOSTRIL ONCE DAILY AND RINSE MOUTH AFTER USE VITAMIN D 25 mcg (1,000 unit) cap TAKE ONE CAPSULE BY MOUTH EVERY DAY Biotin 1 mg tab TAKE ONE TABLET BY MOUTH EVERY DAY busPIRone (BUSPAR) 5 mg tablet Take one tablet by mouth three times a day as needed for panic attacks FAMILY HISTORY Problem Relation Age of Onset Diabetes Maternal Grandmother Psychiatry Maternal Grandmother Stroke Maternal Grandmother Heart Maternal Grandfather later in life (age 79) other (cancer-intestines) Maternal Grandfather type unknown Diabetes Paternal Grandmother Lipids Mother Asthma Son Asthma Daughter Asthma Daughter Diabetes Maternal Aunt Asthma Son Social History Tobacco Use Smoking status: Never Smokeless tobacco: Never Vaping Use Vaping Use: Never used Substance Use Topics Alcohol use: No Drug use: No PHYSICAL EXAM BP 124/76 (BP Site: Left Arm, BP Position: Sitting, BP Cuff Size: Large Adult) Pulse 81 Resp 12 Ht 157.5 cm (5' 2 ) Wt 69.9 kg (154 lb) LMP 04/08/2022 SpO2 98% BMI 28.17 kg/m General Appearance: well appearing, in no acute distress, alert Pysch: mood and affect broad and appropriate Skin: Skin color, texture, turgor normal for age; Head: normocephalic, atraumatic Lymph nodes: No cervical lymphadenopathy Lungs: Lungs clear to auscultation. No wheezing, rhonchi, rales. Heart: RRR without murmur, gallop, or rubs. No ectopy Abdomen: Normal abdominal exam Extremities: No gross deformities, significant edema, skin discoloration, clubbing or cyanosis. Neurological: Gait normal. No focal neurological deficits. Sensation grossly intact. ASSESSMENT/PLAN: 1. Depression with anxiety - ICD9: 300.4, ICD10: F41.8 (primary diagnosis) Discussed various treatment options including pharmacologic management, counseling, as well as referral to behavioral health. Will restart prozac per pt request. Discussed medication indications, proper use, and potential adverse effects. All questions and concerns addressed to patient satisfaction. Will reassess efficacy, and make any further dosage adjustments in 4-6 weeks. - DEPRESSION SCREENING/ASSESSMENT - FLUOXETINE 10 MG CAPSULE - CBC + DIFF - COMP METABOLIC PANEL 2. Hypertriglyceridemia - ICD9: 272.1, ICD10: E78.1 - Control undetermined, due for labs - Counseled on healthy diet and regular exercise - Discussed need for and benefit of weight loss. BMI 28.17 kg/(m^2) - HGB A1C - LIPID PANEL BASIC 3. Family history of diabetes mellitus in mother - ICD9: V18.0, ICD10: Z83.3 Will check labs, including CMP and A1c - COMP METABOLIC PANEL - TSH BLD - HGB A1C - LIPID PANEL BASIC 4. Weight gain - ICD9: 783.1, ICD10: R63.5 Up ~25 lbs since hysterectomy 04/22/22, will check labs including thyroid to further assess - CBC + DIFF - COMP METABOLIC PANEL - TSH BLD - HGB A1C - LIPID PANEL BASIC 5. History of anemia - ICD9: V12.3, ICD10: Z86.2 Routine screening labs ordered to further evaluate--we will discuss at upcoming physical. - CBC + DIFF - TSH BLD Prescription instructions reviewed with patient as applicable. Potential red flag symptoms discussed with the patient. Reviewed appropriate action plan to take if red flag symptoms occur. Patient agreeable to treatment plan. Jeff Barboza PA-C documented in this encounter [facility] 04-11-2023 Miscellaneous Notes Patient has been identified by name and date of : Yes, Provider Date 04/11/23 Time 7:08 Patient phones for refill(s): Requested Prescriptions Pending Prescriptions Disp Refills fluticasone (FLONASE) 50 mcg/actuation nasal spray [Pharmacy Med Name: FLUTICASONE PROPIONATE 50 SUSP] 16 g 2 Sig: USE 2 SPRAYS IN EACH NOSTRIL ONCE DAILY AND RINSE MOUTH AFTER USE Date of last office visit in primary care: 09/06/22 Last 2 Encounter Wt Readings: Date: Wt: 03/13/2023 68.9 kg (152 lb) 09/06/2022 70.3 kg (155 lb) Previous labs/tests for medication: Not applicable Please advise. Thank you. Ana M Varma LPN documented in this encounter [facility] 03-13-2023 Note HNO ID: [id number] Author: Rohith Alvarez APRN.[employer] Service: ? Author Type: Nurse Practitioner Type: Progress Notes Filed: 03/13/2023 11:38 AM Note Text: Subjective HPI A nontoxic appearing female presents to urgent care with chief complaint of possible UTI. Duration of symptoms 5 days. Associated symptoms dysuria, frequency, and urgency. Patient has history of UTIs in past with similar signs and symptoms. Also had kidney stones in the past. This feels similar as well. Patient denies the use of any [id number] medications or home remedies for symptom management. Patient states pain is a 5/10. Patient denies any fevers, flank pain, abdominal pain, nausea, vomiting, vaginal discharge, chance of STDs, chance of , or urological abnormalities. Past medical history prescription medication use allergies reviewed. .Patient presents with: Back Pain: With burning with urination x 5 days PAST MEDICAL HISTORY Diagnosis Date Allergic rhinitis, cause unspecified Anemia WITH EVERY Depression 08/21/2014 HSIL (high grade squamous intraepithelial lesion) on Pap smear of cervix 10/11/13 Papanicolaou smear of cervix with low grade squamous intraepithelial lesion (LGSIL) 2011 PMH - PAST MEDICAL HISTORY OF 06/11 normal color vision PMH - PAST MEDICAL HISTORY OF collapsed lung at depression with last . 08/22/13 PAST SURGICAL HISTORY Procedure Laterality Date COLPOSCOPY 10/31/2013 GOOD 2 INSERTION OF IUD 07/06/2011 mirenaAND REMOVAL LEEP PROCEDURE (EQUIPMENT SERVICE ENGINEER DEPT)_*FL 12/05/2013 SALPINGECTOMY 09/14/2018 Laparoscopic Bilateral salpingectomy TONSILLECTOMY AND ADENOIDECTOMY VAGINAL HYSTERECTOMY 04/22/2022 LAVH, cystoscopy- adenomyosis ALLERGIES Penicillin G, Cephalosporins, and Claritin [Loratadine] MEDICATIONS fluticasone (FLONASE) 50 mcg/actuation nasal spray USE 2 SPRAYS IN EACH NOSTRIL ONCE DAILY . RINSE MOUTH AFTER EACH USE VITAMIN D 25 mcg (1,000 unit) cap TAKE ONE CAPSULE BY MOUTH EVERY DAY Biotin 1 mg tab TAKE ONE TABLET BY MOUTH EVERY DAY busPIRone (BUSPAR) 5 mg tablet Take one tablet by mouth three times a day as needed for panic attacks FAMILY HISTORY Problem Relation Age of Onset Diabetes Maternal Grandmother Psychiatry Maternal Grandmother Stroke Maternal Grandmother Heart Maternal Grandfather later in life (age 79) other (cancer-intestines) Maternal Grandfather type unknown Diabetes Paternal Grandmother Lipids Mother Asthma Son Asthma Daughter Asthma Daughter Diabetes Maternal Aunt Asthma Son Social History Tobacco Use Smoking status: Never Smokeless tobacco: Never Vaping Use Vaping Use: Never used Substance Use Topics Alcohol use: No Drug use: No BP 132/86 Pulse 120 Temp 36.6 ?C (97.8 ?F) Resp 16 Wt 68.9 kg (152 lb) LMP 04/08/2022 SpO2 98% BMI 27.80 kg/m? Hr 86 Review of Systems Constitutional: Negative for chills, fever and malaise/fatigue. HENT: Negative for congestion, ear discharge, ear pain, sinus pain and sore throat. Eyes: Negative for blurred vision, pain, discharge and redness. Respiratory: Negative for cough, hemoptysis, sputum production, shortness of breath, wheezing and stridor. Cardiovascular: Negative for chest pain. Gastrointestinal: Negative for abdominal pain, diarrhea, nausea and vomiting. Genitourinary: Positive for dysuria, flank pain, frequency and urgency. Negative for hematuria. Musculoskeletal: Negative for myalgias. Skin: Negative for itching and rash. Neurological: Negative for dizziness and headaches. Objective Physical Exam Constitutional: General: She is not in acute distress. Appearance: She is not diaphoretic. HENT: Head: Normocephalic. Mouth/Throat: Mouth: Mucous membranes are moist. Pharynx: Oropharynx is clear. No oropharyngeal exudate or posterior oropharyngeal erythema. Eyes: Conjunctiva/sclera: Conjunctivae normal. Pupils: Pupils are equal, round, and reactive to light. Cardiovascular: Rate and Rhythm: Normal rate and regular rhythm. Heart sounds: Normal heart sounds. Pulmonary: Effort: Pulmonary effort is normal. No tachypnea, accessory muscle usage or respiratory distress. Breath sounds: Normal breath sounds. No stridor. No wheezing, rhonchi or rales. Abdominal: Palpations: Abdomen is soft. Tenderness: There is no abdominal tenderness. There is left CVA tenderness. There is no guarding or rebound. Musculoskeletal: Cervical back: Normal range of motion and neck supple. No rigidity or tenderness. Lymphadenopathy: Cervical: No cervical adenopathy. Skin: General: Skin is warm and dry. Neurological: Mental Status: She is alert and oriented to person, place, and time. ASSESSMENT/PLAN: 1. Burning with urination - ICD9: 788.1, ICD10: R30.0 - UA DIP, URINE (POC) - URINE CULTURE Blood leukocytes nitrites noted on urine dip. We will treat as acute cy (more content not included)... [facility] 03-13-2023 History of Present illness Narrative Subjective HPI A nontoxic appearing female presents to urgent care with chief complaint of possible UTI. Duration of symptoms 5 days. Associated symptoms dysuria, frequency, and urgency. Patient has history of UTIs in past with similar signs and symptoms. Also had kidney stones in the past. This feels similar as well. Patient denies the use of any ihge-nik-llmpuee medications or home remedies for symptom management. Patient states pain is a 5/10. Patient denies any fevers, flank pain, abdominal pain, nausea, vomiting, vaginal discharge, chance of STDs, chance of , or urological abnormalities. Past medical history prescription medication use allergies reviewed. .Patient presents with: Back Pain: With burning with urination x 5 days PAST MEDICAL HISTORY Diagnosis Date Allergic rhinitis, cause unspecified Anemia WITH EVERY Depression 08/21/2014 HSIL (high grade squamous intraepithelial lesion) on Pap smear of cervix 10/11/13 Papanicolaou smear of cervix with low grade squamous intraepithelial lesion (LGSIL) 2011 PMH - PAST MEDICAL HISTORY OF 06/11 normal color vision PMH - PAST MEDICAL HISTORY OF collapsed lung at depression with last . 08/22/13 PAST SURGICAL HISTORY Procedure Laterality Date COLPOSCOPY 10/31/2013 GOOD 2 INSERTION OF IUD 07/06/2011 mirenaAND REMOVAL LEEP PROCEDURE (EQUIPMENT SERVICE ENGINEER DEPT)_*FL 12/05/2013 SALPINGECTOMY 09/14/2018 Laparoscopic Bilateral salpingectomy TONSILLECTOMY & ADENOIDECTOMY <AGE 11 age 9 VAGINAL HYSTERECTOMY 04/22/2022 LAVH, cystoscopy- adenomyosis ALLERGIES Penicillin G, Cephalosporins, and Claritin [Loratadine] MEDICATIONS fluticasone (FLONASE) 50 mcg/actuation nasal spray USE 2 SPRAYS IN EACH NOSTRIL ONCE DAILY . RINSE MOUTH AFTER EACH USE VITAMIN D 25 mcg (1,000 unit) cap TAKE ONE CAPSULE BY MOUTH EVERY DAY Biotin 1 mg tab TAKE ONE TABLET BY MOUTH EVERY DAY busPIRone (BUSPAR) 5 mg tablet Take one tablet by mouth three times a day as needed for panic attacks FAMILY HISTORY Problem Relation Age of Onset Diabetes Maternal Grandmother Psychiatry Maternal Grandmother Stroke Maternal Grandmother Heart Maternal Grandfather later in life (age 79) other (cancer-intestines) Maternal Grandfather type unknown Diabetes Paternal Grandmother Lipids Mother Asthma Son Asthma Daughter Asthma Daughter Diabetes Maternal Aunt Asthma Son Social History Tobacco Use Smoking status: Never Smokeless tobacco: Never Vaping Use Vaping Use: Never used Substance Use Topics Alcohol use: No Drug use: No BP 132/86 Pulse 120 Temp 36.6 C (97.8 F) Resp 16 Wt 68.9 kg (152 lb) LMP 04/08/2022 SpO2 98% BMI 27.80 kg/m Hr 86 Review of Systems Constitutional: Negative for chills, fever and malaise/fatigue. HENT: Negative for congestion, ear discharge, ear pain, sinus pain and sore throat. Eyes: Negative for blurred vision, pain, discharge and redness. Respiratory: Negative for cough, hemoptysis, sputum production, shortness of breath, wheezing and stridor. Cardiovascular: Negative for chest pain. Gastrointestinal: Negative for abdominal pain, diarrhea, nausea and vomiting. Genitourinary: Positive for dysuria, flank pain, frequency and urgency. Negative for hematuria. Musculoskeletal: Negative for myalgias. Skin: Negative for itching and rash. Neurological: Negative for dizziness and headaches. Objective Physical Exam Constitutional: General: She is not in acute distress. Appearance: She is not diaphoretic. HENT: Head: Normocephalic. Mouth/Throat: Mouth: Mucous membranes are moist. Pharynx: Oropharynx is clear. No oropharyngeal exudate or posterior oropharyngeal erythema. Eyes: Conjunctiva/sclera: Conjunctivae normal. Pupils: Pupils are equal, round, and reactive to light. Cardiovascular: Rate and Rhythm: Normal rate and regular rhythm. Heart sounds: Normal heart sounds. Pulmonary: Effort: Pulmonary effort is normal. No tachypnea, accessory muscle usage or respiratory distress. Breath sounds: Normal breath sounds. No stridor. No wheezing, rhonchi or rales. Abdominal: Palpations: Abdomen is soft. Tenderness: There is no abdominal tenderness. There is left CVA tenderness. There is no guarding or rebound. Musculoskeletal: Cervical back: Normal range of motion and neck supple. No rigidity or tenderness. Lymphadenopathy: Cervical: No cervical adenopathy. Skin: General: Skin is warm and dry. Neurological: Mental Status: She is alert and oriented to person, place, and time. ASSESSMENT/PLAN: 1. Burning with urination - ICD9: 788.1, ICD10: R30.0 - UA DIP, URINE (POC) - URINE CULTURE Blood leukocytes nitrites noted on urine dip. We will treat as acute cystitis. Placed on Bactrim. Has tolerated this antibiotic in the past. We discussed possibility of pyelonephritis versus kidney infection. We will treat conservatively at this time. If any red flag symptoms develop will be seen in ED. Patient was educated on supportive therapies. Patient will follow up with primary care provider as needed. Patient was instructed to immediately proceed to emergency room for any new, worsening, or symptoms lasting longer than anticipated. The patient's clinical presentation is otherwise unremarkable at this time. Based on exam and clinical finding, the patient is stable for discharge. Plan of care was discussed with patient. Patient verbalizes understanding and agrees to plan of care. This note was generated using Stion software. It may contain errors in wording, punctuation, or spelling. Rohith Alvarez APRN.MANDEEP documented in this encounter [facility] 01-12-2023 Miscellaneous Notes Patient has been identified by name and date of : Yes, Provider Dr. Hooper Date Time 12:02 pm Pharmacy phones for refill(s): Requested Prescriptions Pending Prescriptions Disp Refills fluticasone (FLONASE) 50 mcg/actuation nasal spray [Pharmacy Med Name: FLUTICASONE PROPIONATE 50 SUSP] 16 g 2 Sig: USE 2 SPRAYS IN EACH NOSTRIL ONCE DAILY . RINSE MOUTH AFTER EACH USE Date of last office visit in primary care: 09/06/22 Last 2 Encounter Wt Readings: Date: Wt: 09/06/2022 70.3 kg (155 lb) 06/29/2022 71.2 kg (157 lb) Previous labs/tests for medication: Not applicable Thank you. Brittney Esparza LPN documented in this encounter [facility] 11-16-2022 Miscellaneous Notes FYI postive for covid-19 per [facility] letter dated 11/04/2022 documented in this encounter [facility] 09-06-2022 History of Present illness Narrative Reason for Visit Patient presents with: Physical: vaccines: Hep B and covid needed Sanford Sin is a 32 year old female who presents here today for Above Complaints. Health Maintenance HEPATITIS B(1 of 3 - 3-dose series) HEPATITIS C SCREENING DEPRESSION ASSESSMENT COVID-19 VACCINE(4 - Booster for Pfizer series) HPI Diet- She does eat healthy, she eats mainly chicken, pork, salads, fruits and veggies, no junk food. Sleep- patient sleeps a little rough, wakes up several times in the night. Stress- she does have a little stress with 5 kids. Taking buspar and that helps. Exercise- patient normally goes to the gym and walks the treadmill. Anxiety: she is taking buspar and it helps her , needs a 3 month refill. She has a good social network She has aunts, uncles, mother, friends. No problem-specific Assessment & Plan notes found for this encounter. PAST MEDICAL HISTORY Diagnosis Date Allergic rhinitis, cause unspecified Anemia WITH EVERY Depression 08/21/2014 HSIL (high grade squamous intraepithelial lesion) on Pap smear of cervix 10/11/13 Papanicolaou smear of cervix with low grade squamous intraepithelial lesion (LGSIL) 2011 PMH - PAST MEDICAL HISTORY OF 06/11 normal color vision PMH - PAST MEDICAL HISTORY OF collapsed lung at depression with last . 08/22/13 PAST SURGICAL HISTORY Procedure Laterality Date COLPOSCOPY 10/31/2013 GOOD 2 INSERTION OF IUD 07/06/2011 mirenaAND REMOVAL LEEP PROCEDURE (EQUIPMENT SERVICE ENGINEER DEPT)_*FL 12/05/2013 SALPINGECTOMY 09/14/2018 Laparoscopic Bilateral salpingectomy TONSILLECTOMY & ADENOIDECTOMY <AGE 11 age 9 VAGINAL HYSTERECTOMY 04/22/2022 LAVH, cystoscopy- adenomyosis FAMILY HISTORY Problem Relation Age of Onset Diabetes Maternal Grandmother Psychiatry Maternal Grandmother Stroke Maternal Grandmother Heart Maternal Grandfather later in life (age 79) other (cancer-intestines) Maternal Grandfather type unknown Diabetes Paternal Grandmother Lipids Mother Asthma Son Asthma Daughter Asthma Daughter Diabetes Maternal Aunt Asthma Son Social History Tobacco Use Smoking status: Never Smokeless tobacco: Never Vaping Use Vaping Use: Never used Substance Use Topics Alcohol use: No Drug use: No Past medical history, appointments, medications, allergies reviewed. Pertinent Lab/Diagnostic Studies are reviewed and discussed today Current Outpatient Medications: predniSONE (DELTASONE) 10 mg tablet cyclobenzaprine (FLEXERIL) 10 mg tablet fluticasone (FLONASE) 50 mcg/actuation nasal spray ondansetron (ZOFRAN) 4 mg tablet busPIRone (BUSPAR) 5 mg tablet biotin 1 mg cap Cholecalciferol, Vitamin D3, 25 mcg (1,000 unit) cap ibuprofen (MOTRIN) 600 mg tablet albuterol HFA (PROVENTIL HFA, VENTOLIN HFA) 90 mcg/actuation inhaler Review of Systems CONSTITUTIONAL: No fevers, chills night sweats, unintended weight loss CARDIOVASCULAR: No chest pain, dyspnea, palpitations, orthopnea, PND, ankle edema. PULM: No dyspnea, unexplained cough. GI: No dysphagia/odynophagia, problematic reflux, constipation, diarrhea, changes in stool habits, hematochezia, melena. : No new urinary complaints, including dysuria, gross hematuria or pyuria. NEURO: No new balance problems, peripheral weakness/paresthesias or numbness of concern. Physical Exam BP 112/60 (BP Site: Left Arm, BP Position: Sitting, BP Cuff Size: Large Adult) Pulse 83 Temp 36.9 C (98.4 F) Resp 12 Ht 157.5 cm (5' 2 ) Wt 70.3 kg (155 lb) LMP 04/08/2022 SpO2 98% BMI 28.35 kg/m General appearance: Well appearing, alert, in no acute distress, well-hydrated, well nourished. Skin: Skin color, texture, turgor normal, no suspicious rashes or lesions Head: Normocephalic, no masses, lesions, tenderness or abnormalities Eyes: Anicteric sclera. Pupils are equally round and reactive to light. Extraocular movements are intact. Ears: External ears normal, canals clear Nose/Sinuses: Nares normal, septum midline, mucosa normal, no drainage or sinus tenderness Oropharynx: Lips, mucosa, and tongue normal, teeth and gums normal, oropharynx normal Neck: Supple, no adenopathy; thyroid symmetric, normal size, no bruits Back: Normal exam Lungs: Lungs clear to auscultation. No wheezing, rhonchi, rales Heart: RRR without murmur, gallop, or rubs. No ectopy Abdomen: Normal abdominal exam, Abdomen soft, non-tender. Bowel sounds normal. No masses, organomegaly Extremities: No deformities, edema, skin discoloration, clubbing or cyanosis. Good capillary refill. Musculoskeletal: No joint swelling, deformity, or tenderness Peripheral pulses: Normal Neuro: Gait normal. Reflexes normal and symmetric. Sensation grossly intact. ASSESSMENT/PLAN: 1. Annual physical exam - ICD9: V70.0, ICD10: Z00.00 (primary diagnosis) - Counseled on healthy diet and regular exercise - Calcium intake with supplements or by diet of 1000 mg/day for under 50, 6607-0818 mg/day for 50+ - LIPID PANEL BASIC 2. Special screening examination for viral disease - ICD9: V73.99, ICD10: Z11.59 - DEPRESSION SCREENING/ASSESSMENT - HEP C AB IA W/CONF SCRN - PFIZER-BIONTECH COVID-19 BIVALENT BOOSTER VACCINE, AGE 12+ YR 3. KACY (generalized anxiety disorder) - ICD9: 300.02, ICD10: F41.1 - BUSPIRONE 5 MG TABLET Karlee Hooper MD documented in this encounter [facility] 06-29-2022 Instructions Chana Delacruz APRN.[facility] - 06/29/2022 9:45 AM EDT Viral illness (primary encounter diagnosis) Acute cough You have been diagnosed with an illness caused by a virus. Antibiotics do not cure viral infections. If given when not needed, antibiotics can be harmful. The treatments described below will help you feel better while your body's own defenses are fighting the virus. General Instructions: Drink extra water and juice. Use a cool mist vaporizer or saline nasal spray to relieve congestion. For Sore throats, use ice chips or sore throat spray; lozenges for older children and adults. Specific Medications: Fever, aches, ear pain: Use medicines according to the package instructions or as directed by your healthcare provider. Stop the medication when the symptoms get better. No follow-ups on file. documented in this encounter [facility] 06-29-2022 History of Present illness Narrative This note was created using PayRangeriter. Subjective Sanford Sin is a 31 year old female. 31 year old female with no significant PMH presents for illness. Acute onset 3 days ago +cough +runny nose +non productive cough Denies fever or chills. Denies abdominal pain. Denies N/V/D. Denies skin rash or lesion. She is here with both of her children, with similar complaints. Just want to make sure we aren't contagious The history is provided by the patient. No cotton grower was used. Nasal Congestion This is a new problem. The current episode started in the past 7 days. The problem is unchanged. There has been no fever. Her pain is at a severity of 0/10. Associated symptoms include congestion and coughing. Pertinent negatives include no chills, diaphoresis, ear pain, headaches, hoarse voice, neck pain, shortness of breath, sinus pressure, sneezing, sore throat or swollen glands. Past treatments include nothing. The treatment provided no relief. PAST MEDICAL HISTORY Diagnosis Date Allergic rhinitis, cause unspecified Anemia WITH EVERY Depression 08/21/2014 HSIL (high grade squamous intraepithelial lesion) on Pap smear of cervix 10/11/13 Papanicolaou smear of cervix with low grade squamous intraepithelial lesion (LGSIL) 2011 PMH - PAST MEDICAL HISTORY OF 06/11 normal color vision PMH - PAST MEDICAL HISTORY OF collapsed lung at depression with last . 08/22/13 PAST SURGICAL HISTORY Procedure Laterality Date COLPOSCOPY 10/31/2013 GOOD 2 INSERTION OF IUD 07/06/2011 mirenaAND REMOVAL LEEP PROCEDURE (EQUIPMENT SERVICE ENGINEER DEPT)_*FL 12/05/2013 SALPINGECTOMY 09/14/2018 Laparoscopic Bilateral salpingectomy TONSILLECTOMY & ADENOIDECTOMY <AGE 11 age 9 VAGINAL HYSTERECTOMY 04/22/2022 LAVH, cystoscopy- adenomyosis ALLERGIES Penicillin G, Cephalosporins, and Claritin [Loratadine] MEDICATIONS cyclobenzaprine (FLEXERIL) 10 mg tablet Take 1 tablet by mouth three times daily as needed for muscle spasm. fluticasone (FLONASE) 50 mcg/actuation nasal spray USE TWO SPRAYS INTO EACH NOSTRIL ONCE DAILY. RINSE MOUTH AFTER USE busPIRone (BUSPAR) 5 mg tablet Take one tablet by mouth three times a day as needed for panic attacks biotin 1 mg cap Take 1 capsule by mouth once daily. Cholecalciferol, Vitamin D3, 25 mcg (1,000 unit) cap Take 1 capsule by mouth once daily. ibuprofen (MOTRIN) 600 mg tablet Take 1 tablet by mouth every 6 hours as needed. FOR PAIN. predniSONE (DELTASONE) 10 mg tablet Take 4 tabs daily for 3 days, then 2 tabs daily for 3 days, then 1 tab daily for 3 days with food. ondansetron (ZOFRAN) 4 mg tablet Take 1 tablet by mouth every 8 hours as needed for nausea/vomiting. albuterol HFA (PROVENTIL HFA, VENTOLIN HFA) 90 mcg/actuation inhaler Inhale 2 Puffs as instructed every 6 hours as needed for Wheezing/Shortness of Breath (persistent cough). FAMILY HISTORY Problem Relation Age of Onset Diabetes Maternal Grandmother Psychiatry Maternal Grandmother Stroke Maternal Grandmother Heart Maternal Grandfather later in life (age 79) other (cancer-intestines) Maternal Grandfather type unknown Diabetes Paternal Grandmother Lipids Mother Asthma Son Asthma Daughter Asthma Daughter Diabetes Maternal Aunt Asthma Son Social History Tobacco Use Smoking status: Never Smokeless tobacco: Never Vaping Use Vaping Use: Never used Substance Use Topics Alcohol use: No Drug use: No Review of Systems Constitutional: Negative for chills, diaphoresis, fatigue and fever. HENT: Positive for congestion. Negative for ear pain, hoarse voice, sinus pressure, sneezing and sore throat. Eyes: Negative for pain, discharge and itching. Respiratory: Positive for cough. Negative for apnea, chest tightness and shortness of breath. Cardiovascular: Negative for chest pain, palpitations and leg swelling. Gastrointestinal: Negative for abdominal pain, diarrhea, nausea and vomiting. Musculoskeletal: Negative for arthralgias, back pain, gait problem and neck pain. Skin: Negative for color change, pallor, rash and wound. Allergic/Immunologic: Negative for environmental allergies, food allergies and immunocompromised state. Neurological: Negative for dizziness, facial asymmetry and headaches. Hematological: Negative for adenopathy. Does not bruise/bleed easily. Psychiatric/Behavioral: Negative for agitation and behavioral problems. Objective BP 118/64 Pulse 106 Temp 36.7 C (98 F) Resp 16 Wt 71.2 kg (157 lb) LMP 04/08/2022 SpO2 98% BMI 28.53 kg/m Physical Exam Vitals and nursing note reviewed. Constitutional: General: She is not in acute distress. Appearance: Normal appearance. She is normal weight. She is not ill-appearing, toxic-appearing or diaphoretic. HENT: Head: Normocephalic and atraumatic. Right Ear: Ear canal and external ear normal. Left Ear: Ear canal and external ear normal. Nose: Nose normal. No congestion or rhinorrhea. Mouth/Throat: Mouth: Mucous membranes are moist. Pharynx: No oropharyngeal exudate or posterior oropharyngeal erythema. Eyes: General: Right eye: No discharge. Left eye: No discharge. Extraocular Movements: Extraocular movements intact. Conjunctiva/sclera: Conjunctivae normal. Pupils: Pupils are equal, round, and reactive to light. Cardiovascular: Rate and Rhythm: Normal rate and regular rhythm. Pulses: Normal pulses. Heart sounds: Normal heart sounds. No murmur heard. No friction rub. Pulmonary: Effort: Pulmonary effort is normal. No respiratory distress. Breath sounds: Normal breath sounds. No stridor. No wheezing, rhonchi or rales. Chest: Chest wall: No tenderness. Abdominal: General: Abdomen is flat. There is no distension. Palpations: Abdomen is soft. There is no mass. Tenderness: There is no abdominal tenderness. There is no right CVA tenderness, left CVA tenderness, guarding or rebound. Hernia: No hernia is present. Musculoskeletal: General: No swelling, tenderness, deformity or signs of injury. Normal range of motion. Cervical back: Normal range of motion and neck supple. No rigidity. Right lower leg: No edema. Left lower leg: No edema. Lymphadenopathy: Cervical: No cervical adenopathy. Skin: General: Skin is warm and dry. Capillary Refill: Capillary refill takes less than 2 seconds. Coloration: Skin is not jaundiced or pale. Findings: No bruising, erythema, lesion or rash. Neurological: General: No focal deficit present. Mental Status: She is alert and oriented to person, place, and time. Cranial Nerves: No cranial nerve deficit. Sensory: No sensory deficit. Motor: No weakness. Coordination: Coordination normal. Gait: Gait normal. Psychiatric: Mood and Affect: Mood normal. Behavior: Behavior normal. Thought Content: Thought content normal. Judgment: Judgment normal. Assessment and Plan ASSESSMENT/PLAN: 1. Viral illness - ICD9: 079.99, ICD10: B34.9 (primary diagnosis) - Discussed viral etiology and rationale for treatment. - Symptomatic treatment with prn analgesia - Supportive care with fluids and rest - The patient may also use OTC cough and cold meds as needed, warm salt water gargles, throat lozenges and/or OTC throat spray as needed, nasal saline gtts and suction prn, and RX for Prednisone . - Follow up in 3-5 days if symptoms persist or sooner if worsening of symptoms - COVID WITH FLUA+B, ROUTINE-obtained and pending results. 2. Acute cough - ICD9: 786.2, ICD10: R05.1 X 3 days No red flags Lungs CTA Hemodynamically stable - COVID WITH FLUA+B, ROUTINE-obtained and pending Chana Delacruz APRN.TRANSMISSION SUPERINTENDENT documented in this encounter [facility] 06-15-2022 History of Present illness Narrative Radiology Service Progress Note PATIENT NAME: Sanford Sin DATE OF SERVICE: June 15, 2022 TIME: 10:35 AM PATIENT IDENTITY VERIFICATION COMPLETED USING TWO (2) IDENTIFIERS: Name and Date of confirmed by patient verbally. FALL SCREENING: Has the patient had 2 falls in the last year or 1 fall with injury or currently using an Ambulatory Assistive Device (Walker, Cane, Wheelchair, Crutches, etc.)? No PATIENT GENDER DATA: Female. status: : No status: NO. PATIENT RELEVANT IMPLANT DATA REVIEWED: Not Applicable RADIOLOGY DEPARTMENT: Ultrasound PERIPHERAL IV DATA: Not applicable SIGNED BY: Chana Rich RDMS RVT June 15, 2022 10:35 AM documented in this encounter [facility] 06-15-2022 History of Present illness Narrative Radiology Service Progress Note PATIENT NAME: Sanford Sin DATE OF SERVICE: June 15, 2022 TIME: 9:48 AM PATIENT IDENTITY VERIFICATION COMPLETED USING TWO (2) IDENTIFIERS: Name and Date of confirmed by patient verbally. FALL SCREENING: Has the patient had 2 falls in the last year or 1 fall with injury or currently using an Ambulatory Assistive Device (Walker, Cane, Wheelchair, Crutches, etc.)? No PATIENT GENDER DATA: Female. status: : No status: NO. PATIENT RELEVANT IMPLANT DATA REVIEWED: Not Applicable RADIOLOGY DEPARTMENT: Mammography PERIPHERAL IV DATA: Not applicable SIGNED BY: Lidna White June 15, 2022 9:48 AM documented in this encounter [facility] 06-10-2022 History of Present illness Narrative Hansard Reporter offered: Patient declines. BREAST LUMP HISTORY: This is a 31 year old female Presents with breast mass left Mass has been present for 2 days She felt sharp pain and then found it upon palpation. Feels like a knot that she can move around. No skin changes or nipple discharge. Tenderness No Does have a history of premenstrual breast tenderness - LAVH 2.5 months ago for adenomyosis, ovary sparing Change in sizeNo Any history breast mass No Caffeine use 1 soda 4 cans/week Last mammogram: never Any previous breast surgery No Any family history breast disease/ breast cancer No OB History T5 L5 SAB0 IAB0 Ectopic0 Multiple0 Live Births5 PAST MEDICAL HISTORY Diagnosis Date Allergic rhinitis, cause unspecified Anemia WITH EVERY Depression 08/21/2014 HSIL (high grade squamous intraepithelial lesion) on Pap smear of cervix 10/11/13 Papanicolaou smear of cervix with low grade squamous intraepithelial lesion (LGSIL) 2011 PMH - PAST MEDICAL HISTORY OF 06/11 normal color vision PMH - PAST MEDICAL HISTORY OF collapsed lung at depression with last . 08/22/13 PAST SURGICAL HISTORY Procedure Laterality Date COLPOSCOPY 10/31/2013 GOOD 2 INSERTION OF IUD 07/06/2011 mirenaAND REMOVAL LEEP PROCEDURE (EQUIPMENT SERVICE ENGINEER DEPT)_*FL 12/05/2013 SALPINGECTOMY 09/14/2018 Laparoscopic Bilateral salpingectomy TONSILLECTOMY & ADENOIDECTOMY <AGE 11 age 9 VAGINAL HYSTERECTOMY 04/22/2022 LAVH, cystoscopy- adenomyosis FAMILY HISTORY Problem Relation Age of Onset Diabetes Maternal Grandmother Psychiatry Maternal Grandmother Stroke Maternal Grandmother Heart Maternal Grandfather later in life (age 79) other (cancer-intestines) Maternal Grandfather type unknown Diabetes Paternal Grandmother Lipids Mother Asthma Son Asthma Daughter Asthma Daughter Diabetes Maternal Aunt Asthma Son SOCIAL HISTORY Social History Tobacco Use Smoking status: Never Smokeless tobacco: Never Vaping Use Vaping Use: Never used Substance Use Topics Alcohol use: No Drug use: No PAST SURGICAL HISTORY Procedure Laterality Date COLPOSCOPY 10/31/2013 GOOD 2 INSERTION OF IUD 07/06/2011 mirenaAND REMOVAL LEEP PROCEDURE (EQUIPMENT SERVICE ENGINEER DEPT)_*FL 12/05/2013 SALPINGECTOMY 09/14/2018 Laparoscopic Bilateral salpingectomy TONSILLECTOMY & ADENOIDECTOMY <AGE 11 age 9 VAGINAL HYSTERECTOMY 04/22/2022 LAVH, cystoscopy- adenomyosis Current Outpatient Medications Medication Sig fluticasone (FLONASE) 50 mcg/actuation nasal spray Use 2 Sprays in each nostril once daily. Rinse mouth after use. cyclobenzaprine (FLEXERIL) 10 mg tablet Take 1 tablet by mouth three times daily as needed for muscle spasm. busPIRone (BUSPAR) 5 mg tablet Take one tablet by mouth three times a day as needed for panic attacks biotin 1 mg cap Take 1 capsule by mouth once daily. Cholecalciferol, Vitamin D3, 25 mcg (1,000 unit) cap Take 1 capsule by mouth once daily. ibuprofen (MOTRIN) 600 mg tablet Take 1 tablet by mouth every 6 hours as needed. FOR PAIN. ondansetron (ZOFRAN) 4 mg tablet Take 1 tablet by mouth every 8 hours as needed for nausea/vomiting. oxyCODONE-acetaminophen (PERCOCET) 5-325 mg tablet Take 1 tablet by mouth four times daily as needed for pain. FOR PAIN. (Patient not taking: Reported on 05/10/2022) ZAFEMY 150-35 mcg/24 hr patch APPLY ONE PATCH ONCE A WEEK DIRECTED albuterol HFA (PROVENTIL HFA, VENTOLIN HFA) 90 mcg/actuation inhaler Inhale 2 Puffs as instructed every 6 hours as needed for Wheezing/Shortness of Breath (persistent cough). No current facility-administered medications for this visit. Allergies As of Date: 06/10/2022 Allergen Noted Reaction PENICILLIN G 06/22/2005 Hives CEPHALOSPORINS 04/08/2010 Swelling and Itching CLARITIN [LORATADINE] 01/08/2011 Rash Fully Assessed 06/10/2022 EXAMINATION: Exam supine and sitting. There is no concerning cervical, supraclavicular, or axillary lymphadenopathy. She has no fibrocystic changes. On the right are no dominant masses, skin changes or nipple discharge. On the left there is a 4 cm mobile mass in the 4 o'clock location 5 cm from nipple, but no skin changes or nipple discharge. : ASSESSMENT/PLAN: 1. Mass of lower outer quadrant of left breast - ICD9: 611.72, ICD10: N63.23 - US BREAST LTD - [facility]ILAT Will notify of results. Follow- up as needed. Lila Bull APRN.CNP Medical Decision Making: Problems: Moderate: New problem with uncertain prognosis Data: Unique test(s) ordered: 2 Medical Decision Making Level: 3 - Low documented in this encounter [facility] 06-09-2022 Miscellaneous Notes Patient scheduled documented in this encounter [facility] 05-10-2022 History of Present illness Narrative DATE OF SERVICE: 05/10/2022 PROBLEM: Sanford Sin presents for postop visit. SURGERY & DATE: LAVH and Cystoscopy at [facility] on 04/22/22 PATHOLOGY: Adenomyosis, chronic endometritis SUBJECTIVE/INTERVAL HISTORY: Sanford Sin reports that she feels well. No fever or chills. . No incisional redness, swelling, or drainage. . No abdominal pain, nausea, vomiting, diarrhea, or constipation. No dysuria, gross hematuria, urinary frequency, urinary urgency, or incontinence. OBJECTIVE: VITALS: BP 98/62 Wt 149 lb 12.8 oz (67.9 kg) LMP 04/08/2022 BMI 27.22 kg/m HEENT: Normocephalic and atraumatic ABDOMEN: Abdomen soft, non-tender, incisions sites dry, no erythema- healing well. ASSESSMENT: 2 weeks Post op LAVH, Cysto- doing well PLAN: Postop restrictions reviewed. Pathology Benign F/u 6 wk post op check Cammy Bush MD documented in this encounter [facility] 04-23-2022 Miscellaneous Notes Peer to peer completed today and surgery was approved. Dr. Sweeney spoke to Dr. Crenshaw. Message has been left with [employer] to schedule a peer to peer for surgery DOS: 04/22/2022. Reference number: [id number]. documented in this encounter [facility] 04-14-2022 History and physical note Pre-Op History and Physical HPI: The patient is a 31 year old female presenting for discussion regarding surgical intervention for AUB. Pt likely with Adenomyosis. Has h/o Salpingectomy. Has failed Oral Contraception and patch. Declines further intervention with Hormones. pre-operative visit. She is scheduled for LAVH, cystoscopy, for AUB, suspect adenomyosis on 04/22/22. Procedure discussed along with risks, benefits and complications. Other alternatives discussed for management. Consent form signed? Yes. PAST MEDICAL HISTORY Diagnosis Date Allergic rhinitis, cause unspecified Anemia WITH EVERY Depression 08/21/2014 HSIL (high grade squamous intraepithelial lesion) on Pap smear of cervix 10/11/13 Papanicolaou smear of cervix with low grade squamous intraepithelial lesion (LGSIL) 2011 PMH - PAST MEDICAL HISTORY OF 06/11 normal color vision PMH - PAST MEDICAL HISTORY OF collapsed lung at depression with last . 08/22/13 PAST SURGICAL HISTORY Procedure Laterality Date COLPOSCOPY 10/31/13 GOOD 2 INSERTION OF IUD 07/06/2011 mirenaAND REMOVAL LEEP PROCEDURE (EQUIPMENT SERVICE ENGINEER DEPT)_*FL 12/05/13 SALPINGECTOMY 09/14/2018 Laparoscopic Bilateral salpingectomy TONSILLECTOMY & ADENOIDECTOMY <AGE 11 age 9 Current Outpatient Medications Medication Sig Dispense Refill fluticasone (FLONASE) 50 mcg/actuation nasal spray Use 2 Sprays in each nostril once daily. Rinse mouth after use. 16 g 2 cyclobenzaprine (FLEXERIL) 10 mg tablet Take 1 tablet by mouth three times daily as needed for muscle spasm. 15 tablet 0 busPIRone (BUSPAR) 5 mg tablet Take one tablet by mouth three times a day as needed for panic attacks 30 tablet 11 biotin 1 mg cap Take 1 capsule by mouth once daily. 90 capsule 3 Cholecalciferol, Vitamin D3, 25 mcg (1,000 unit) cap Take 1 capsule by mouth once daily. 90 capsule 3 ZAFEMY 150-35 mcg/24 hr patch APPLY ONE PATCH ONCE A WEEK DIRECTED 3 Patch 11 ibuprofen (MOTRIN) 600 mg tablet Take 1 tablet by mouth every 6 hours as needed. FOR PAIN. 30 tablet 0 albuterol HFA (PROVENTIL HFA, VENTOLIN HFA) 90 mcg/actuation inhaler Inhale 2 Puffs as instructed every 6 hours as needed for Wheezing/Shortness of Breath (persistent cough). 1 Inhaler 2 No current facility-administered medications for this visit. ALLERGIES: Penicillin G, Cephalosporins, and Claritin [Loratadine] PERSONAL HISTORY: Social History Tobacco Use Smoking status: Never Smoker Smokeless tobacco: Never Used Vaping Use Vaping Use: Never used Substance Use Topics Alcohol use: No Drug use: No FAMILY HISTORY: FAMILY HISTORY Problem Relation Age of Onset Diabetes Maternal Grandmother Psychiatry Maternal Grandmother Stroke Maternal Grandmother Heart Maternal Grandfather later in life (age 79) other (cancer-intestines) Maternal Grandfather type unknown Diabetes Paternal Grandmother Lipids Mother Asthma Son Asthma Daughter Asthma Daughter Diabetes Maternal Aunt Asthma Son REVIEW OF SYMPTOMS: negative except as noted above PHYSICAL EXAMINATION: VITALS: Blood pressure 112/68, pulse 91, resp. rate 18, height 5' 2.21 (1.58 m), weight 149 lb 12.8 oz (67.9 kg), last menstrual period 04/08/2022, SpO2 96 %. GENERAL: The patient is well nourished, well hydrated in no acute distress. , The patient is oriented to time, place, and person. NECK: full range of motion GENITALIA: Normal external genitalia, Urethral meatus normal, Bladder nontender, normal vagina and normal vaginal tone, normal cervix, normal uterus, size and consistency, normal adnexa without masses or tenderness and perineum WNL WET PREP: Not indicated IMPRESSION: AUB, suspect adenomyosis PLAN: LAVH, Cystoscopy Pt has been counseled on risks/benefits and alternatives of surgery including but not limited to anesthesia, bleeding, infection, injury to pelvic structures including bowel, bladder, ureters and vessels. Pt wishes to proceed with surgery at this time. Possible blood transfusion reviewed. Reviewed cuff dehiscence Pre and post op instructions reviewed Post op meds ordered Pap today - had leep in 2013 normal since that time. I have reviewed and updated past medical and surgical history, medications and allergies Cammy Sweeney MD documented in this encounter [facility] 03-10-2022 Miscellaneous Notes Patient has been identified by name and date of : Yes Pharmacy phones for refill(s): Pending Prescriptions Disp Refills FLUTICASONE PROPIONATE 50 MCG/ACTUATION NASAL SPRAY,SUSPENSION 16 g 2 Sig: Use 2 Sprays in each nostril once daily. Rinse mouth after use. FARHAT: No Date of last office visit in primary care: 07/31/21, NOV: not scheduled yet Last 2 Encounter Wt Readings: Date: Wt: 12/29/2021 68 kg (150 lb) 11/18/2021 67.1 kg (148 lb) Please advise. Thank you. Shobha Gallagher RN documented in this encounter [facility] 02-15-2022 History of Present illness Narrative VIRTUAL VISIT PROGRESS NOTE This is a virtual visit using zoom. It required patient-provider interaction for the medical decision making as documented below. Sanford Sin is a 31 year old female seen for abnormal uterine bleeding. Patient states she is still having bleeding for 2 weeks out of every month. Patient states that the bleeding got worse after the delivery of her last child. Patient states she has tried multiple oral contraceptive pills, Xulane patch and Nexplanon without success. Patient cannot use an IUD. Patient does not desire further hormonal therapy. Patient would like to proceed with surgical intervention at this time. Patient has had previous salpingectomy and does not desire further childbearing capabilities.. Based on her most recent ultrasound she has suspected adenomyosis with possible polycystic ovaries. HISTORY REVIEWED (electronic chart updated): PAST MEDICAL HISTORY Diagnosis Date Allergic rhinitis, cause unspecified Anemia WITH EVERY Depression 08/21/2014 HSIL (high grade squamous intraepithelial lesion) on Pap smear of cervix 10/11/13 Papanicolaou smear of cervix with low grade squamous intraepithelial lesion (LGSIL) 2011 PMH - PAST MEDICAL HISTORY OF 06/11 normal color vision PMH - PAST MEDICAL HISTORY OF collapsed lung at depression with last . 08/22/13 PAST SURGICAL HISTORY Procedure Laterality Date COLPOSCOPY 10/31/13 GOOD 2 INSERTION OF IUD 07/06/2011 mirenaAND REMOVAL LEEP PROCEDURE (EQUIPMENT SERVICE ENGINEER DEPT)_*FL 12/05/13 SALPINGECTOMY 09/14/2018 Laparoscopic Bilateral salpingectomy TONSILLECTOMY & ADENOIDECTOMY <AGE 11 age 9 FAMILY HISTORY Problem Relation Age of Onset Diabetes Maternal Grandmother Psychiatry Maternal Grandmother Stroke Maternal Grandmother Heart Maternal Grandfather later in life (age 79) other (cancer-intestines) Maternal Grandfather type unknown Diabetes Paternal Grandmother Lipids Mother Asthma Son Asthma Daughter Asthma Daughter Diabetes Maternal Aunt Asthma Son Social History Tobacco Use Smoking status: Never Smoker Smokeless tobacco: Never Used Vaping Use Vaping Use: Never used Substance Use Topics Alcohol use: No Drug use: No Current Outpatient Medications Medication Sig fluticasone (FLONASE) 50 mcg/actuation nasal spray Use 2 Sprays in each nostril once daily. Rinse mouth after use. cyclobenzaprine (FLEXERIL) 10 mg tablet Take 1 tablet by mouth three times daily as needed for muscle spasm. busPIRone (BUSPAR) 5 mg tablet Take one tablet by mouth three times a day as needed for panic attacks lidocaine viscous (LIDOCAINE VISCOUS) 2 % solution Take 15 mL by mouth every 3 hours as needed for pain. (Patient not taking: Reported on 12/29/2021 ) biotin 1 mg cap Take 1 capsule by mouth once daily. Cholecalciferol, Vitamin D3, 25 mcg (1,000 unit) cap Take 1 capsule by mouth once daily. ZAFEMY 150-35 mcg/24 hr patch APPLY ONE PATCH ONCE A WEEK DIRECTED ibuprofen (MOTRIN) 600 mg tablet Take 1 tablet by mouth every 6 hours as needed. FOR PAIN. albuterol HFA (PROVENTIL HFA, VENTOLIN HFA) 90 mcg/actuation inhaler Inhale 2 Puffs as instructed every 6 hours as needed for Wheezing/Shortness of Breath (persistent cough). No current facility-administered medications for this visit. ALLERGIES Allergen Reactions Penicillin G Hives Cephalosporins Swelling, Itching Also felt like skin was on fire Claritin [Loratadin* Rash REVIEW OF SYSTEMS: GENERAL: feeling well without fatigue, no recent change in weight EQUIPMENT SERVICE ENGINEER: abnormal bleeding PHYSICAL EXAMINATION: VIDEO EXAM: (if completed, performed via video enabled technology) GENERAL: alert and appropriate, in no distress, well-hydrated, well nourished and happy, smiling, interactive SKIN: no rash noted HEAD: normocephalic, no abnormality or lesion noted NEUROLOGIC: no obvious deficit ASSESSMENT: (N93.9) Abnormal uterine bleeding (AUB) (primary encounter diagnosis) (N80.0) Adenomyosis (N92.1) Breakthrough bleeding on contraceptive patch PLAN: We discussed continuous management with hormonal therapy could try Depo-Provera. Patient is not wanting to continue with hormonal therapy at this time. Hysterectomy option reviewed with the patient due to suspected adenomyosis and her age 31. We discussed that ovaries would stay intact. Recommend removal of the uterus and the cervix. Discussed that likely best route approach would be laparoscopic assisted vaginal hysterectomy. We discussed the risks involved with a hysterectomy which include but are not limited to bleeding, injury to pelvic structures including bladder bowel vessels. Fistula formation, cuff dehiscence. Patient verbalized understanding and does wish to proceed. Patient would like to wait to do the procedure in April she does have a vacation scheduled in March. There are no Patient Instructions on file for this visit. Medical Decision Making: Problems: Moderate: New problem with uncertain prognosis Risk: High: Decision on elective major surgery w/ risk factors Medical Decision Making Level: 4 - Moderate Cammy Bush MD documented in this encounter [facility] 02-04-2022 Miscellaneous Notes How many days is she bleeding before she removes the patch? I would recommend we get pelvic us to r/o polyp or other pathology. Continue patch use as directed for now. documented in this encounter [facility] 12-29-2021 Instructions Rohith Alvarez APRN.TRANSMISSION SUPERINTENDENT - 12/29/2021 10:49 AM EDT How to Manage Common Symptoms Associated with COVID for Adults Fever- Fever is a temperature over 100.4 F and can occur when the body is fighting an infection. To help treat a fever: Drink plenty of fluids and stay well hydrated. Eat small amounts of easy to digest food. Rest. Your body needs rest to recover, but getting up and moving around the house frequently is a good idea. You should try to continue doing your normal daily activities (bathing, toileting, grooming, cooking), though you will probably feel tired, and need to rest often. Avoid any heavy activity or exercise, as this will increase your body temperature. Dress in light clothing and stay covered in a light sheet. Keep the room temperature cool. Take a slightly warm (not cold or cool) bath, or apply damp washcloths to the forehead and wrists. Cough- Cough is a common symptom associated with COVID and can be bothersome. To help treat a cough: Stay well hydrated. Try warm water or tea with lemon and/or honey to help soothe the cough. Use a humidifier to add moisture to the air. Try a product with menthol, like a cough drop or a rub for your chest such as Vicks, which can help reduce cough. Try cough drops. Avoid smoking and other strong odors or perfumes. Try breathing exercises to keep your lungs open and clear. Take a big deep breath through your nose and hold for 5 seconds before slowly releasing. Repeat frequently, while you are awake. Congestion- Runny nose or nasal congestion can occur with COVID. Treatment can help relieve symptoms: Try OTC nasal saline spray, or nasal saline rinse to relieve mucus congestion. Nasal strips can help keep nasal passages open, to increase airflow. Elevating your head with an extra pillow in bed can help reduce congestion. Using a humidifier can increase moisture in the air, and make breathing easier. Sore Throat- Another common symptom with COVID, can be managed at home by: Stay well hydrated. Gargle with salt water mix teaspoon salt with 1 cup of warm water and gargle. This helps to loosen mucus in the back of the throat and may reduce discomfort. Try ice chips, popsicles or lozenges to soothe the throat. Nausea/Vomiting/Diarrhea- These are common symptoms, and staying hydrated is most important. If you are nauseous or vomiting, start with small sips of water every 10-15 minutes and increase as tolerated. You can try sucking an ice cube too. If tolerating, you can try pedialyte or Gatorade, or flat sprite or garo-mounika. Start slowly and increase as you are able to. Instead of meals, try smaller, more frequent snacks. Try eating bland foods like crackers, toast, rice, and applesauce. Avoid spicy, greasy or fried foods and dairy containing foods. Even if you aren't feeling hungry due to lack of smell or taste, it is important to try to take in some food when you are able. After drinking and eating, rest in an upright position for up to two hours as needed to help decrease nauseous feelings. Try closing your eyes, avoid moving and watching TV. Avoid strong odors that can make you feel more nauseated. When to seek emergency medical attention Look for emergency warning signs for COVID-19. If having any of these symptoms, seek emergency medical care immediately: Trouble breathing Persistent pain or pressure in the chest New confusion Inability to wake or stay awake Bluish lips or face *This list is not all possible symptoms. Please call your medical provider for any other symptoms that are severe or concerning to you. documented in this encounter [facility] 12-29-2021 History of Present illness Narrative Subjective HPI Nontoxic-appearing female presents urgent care chief complaint head congestion cough headache sore throat. Duration of symptoms 5 days. Associated symptoms listed above. Patient states she did have slight body aches and chills initially those have some subsided. States children have similar signs symptoms. Denies any OTC medication use today. Denies any significant pain. Denies any fever productive cough chest pain shortness of breath pleuritic pain hemoptysis nausea vomiting abdominal pain or change in bowel or bladder habits. Past medical history prescription medication use allergies reviewed. .Patient presents with: Head Congestion: drainage, cough, headache and sore throat x 5 days PAST MEDICAL HISTORY Diagnosis Date Allergic rhinitis, cause unspecified Anemia WITH EVERY Depression 08/21/2014 HSIL (high grade squamous intraepithelial lesion) on Pap smear of cervix 10/11/13 Papanicolaou smear of cervix with low grade squamous intraepithelial lesion (LGSIL) 2011 PMH - PAST MEDICAL HISTORY OF 06/11 normal color vision PMH - PAST MEDICAL HISTORY OF collapsed lung at depression with last . 08/22/13 PAST SURGICAL HISTORY Procedure Laterality Date COLPOSCOPY 10/31/13 GOOD 2 INSERTION OF IUD 07/06/2011 mirenaAND REMOVAL LEEP PROCEDURE (EQUIPMENT SERVICE ENGINEER DEPT)_*FL 12/05/13 SALPINGECTOMY 09/14/2018 Laparoscopic Bilateral salpingectomy TONSILLECTOMY & ADENOIDECTOMY <AGE 11 age 9 ALLERGIES Penicillin G, Cephalosporins, and Claritin [Loratadine] MEDICATIONS fluticasone (FLONASE) 50 mcg/actuation nasal spray Use 2 Sprays in each nostril once daily. Rinse mouth after use. cyclobenzaprine (FLEXERIL) 10 mg tablet Take 1 tablet by mouth three times daily as needed for muscle spasm. busPIRone (BUSPAR) 5 mg tablet Take one tablet by mouth three times a day as needed for panic attacks biotin 1 mg cap Take 1 capsule by mouth once daily. Cholecalciferol, Vitamin D3, 25 mcg (1,000 unit) cap Take 1 capsule by mouth once daily. ZAFEMY 150-35 mcg/24 hr patch APPLY ONE PATCH ONCE A WEEK DIRECTED ibuprofen (MOTRIN) 600 mg tablet Take 1 tablet by mouth every 6 hours as needed. FOR PAIN. lidocaine viscous (LIDOCAINE VISCOUS) 2 % solution Take 15 mL by mouth every 3 hours as needed for pain. albuterol HFA (PROVENTIL HFA, VENTOLIN HFA) 90 mcg/actuation inhaler Inhale 2 Puffs as instructed every 6 hours as needed for Wheezing/Shortness of Breath (persistent cough). FAMILY HISTORY Problem Relation Age of Onset Diabetes Maternal Grandmother Psychiatry Maternal Grandmother Stroke Maternal Grandmother Heart Maternal Grandfather later in life (age 79) other (cancer-intestines) Maternal Grandfather type unknown Diabetes Paternal Grandmother Lipids Mother Asthma Son Asthma Daughter Asthma Daughter Diabetes Maternal Aunt Asthma Son Social History Tobacco Use Smoking status: Never Smoker Smokeless tobacco: Never Used Vaping Use Vaping Use: Never used Substance Use Topics Alcohol use: No Drug use: No BP 102/64 Pulse 112 Temp 36.6 C (97.8 F) Resp 16 Wt 68 kg (150 lb) LMP 11/12/2021 SpO2 98% BMI 26.57 kg/m Hr 82 Review of Systems Constitutional: Positive for malaise/fatigue. Negative for chills and fever. HENT: Positive for congestion and sore throat. Negative for ear discharge, ear pain and sinus pain. Eyes: Negative for blurred vision, pain, discharge and redness. Respiratory: Positive for cough. Negative for hemoptysis, sputum production, shortness of breath, wheezing and stridor. Cardiovascular: Negative for chest pain. Gastrointestinal: Negative for abdominal pain, diarrhea, nausea and vomiting. Musculoskeletal: Positive for myalgias. Skin: Negative for itching and rash. Neurological: Positive for headaches. Negative for dizziness. Objective Physical Exam Vitals and nursing note reviewed. Constitutional: General: She is not in acute distress. Appearance: She is not diaphoretic. HENT: Head: Normocephalic and atraumatic. Jaw: No trismus. Right Ear: Hearing, tympanic membrane, ear canal and external ear normal. No decreased hearing noted. No drainage, swelling or tenderness. Tympanic membrane is not perforated, erythematous or bulging. Left Ear: Hearing, tympanic membrane, ear canal and external ear normal. No decreased hearing noted. No drainage, swelling or tenderness. Tympanic membrane is not perforated, erythematous or bulging. Mouth/Throat: Mouth: Mucous membranes are moist. Pharynx: Oropharynx is clear. Uvula midline. No oropharyngeal exudate, posterior oropharyngeal erythema or uvula swelling. Tonsils: No tonsillar abscesses. Eyes: General: Right eye: No discharge. Left eye: No discharge. Conjunctiva/sclera: Conjunctivae normal. Pupils: Pupils are equal, round, and reactive to light. Cardiovascular: Rate and Rhythm: Normal rate and regular rhythm. Heart sounds: Normal heart sounds. Pulmonary: Effort: Pulmonary effort is normal. No respiratory distress. Breath sounds: Normal breath sounds. No stridor. No wheezing, rhonchi or rales. Chest: Chest wall: No tenderness. Abdominal: Palpations: Abdomen is soft. Tenderness: There is no abdominal tenderness. Musculoskeletal: General: No tenderness. Normal range of motion. Cervical back: Normal range of motion and neck supple. Lymphadenopathy: Head: Right side of head: No submental, submandibular, tonsillar, preauricular, posterior auricular or occipital adenopathy. Left side of head: No submental, submandibular, tonsillar, preauricular, posterior auricular or occipital adenopathy. Cervical: No cervical adenopathy. Right cervical: No superficial or posterior cervical adenopathy. Left cervical: No superficial or posterior cervical adenopathy. Skin: General: Skin is warm and dry. Findings: No rash. Neurological: Mental Status: She is alert and oriented to person, place, and time. ASSESSMENT/PLAN: 1. Viral illness - ICD9: 079.99, ICD10: B34.9 - COVID WITH FLUA+B, ROUTINE Suspicious of viral etiology at this time. No evidence of bacterial infection. Patient was educated on supportive therapies. Patient will follow up with primary care provider as needed. Patient was instructed to immediately proceed to emergency room for any new, worsening, or symptoms lasting longer than anticipated. The patient's clinical presentation is otherwise unremarkable at this time. Based on exam and clinical finding, the patient is stable for discharge. Plan of care was discussed with patient. Patient verbalizes understanding and agrees to plan of care. This note was generated using [employer] software. It may contain errors in wording, punctuation, or spelling. 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 Since then she was on Zoloft. Last Assessment & Plan: She is on Zoloft, for he depression, she is doing much better with it but could Use a lot of improvement, Her fiance and her MIL still think that she is sad. She is stressed with her ex who is causing her issues. 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 Family history of Down syndrome 01/11/2013 06/06/2015 Overview: 12/22/2017Patient's half-brother born with Down syndrome. Patient desires aneuploidy screening. TKRN Patient requested diagnostic testing 01/11/2013 06/06/2015 Overview: 09/03/14: Family h/o down syndrome. Patient's half brother with DS Papanicolaou smear of cervix with low grade squamous intraepithelial lesion (LGSIL) 06/26/2012 10/31/2013 General counseling for prescription of oral cont raceptives 05/29/2012 05/16/2013 Surveillance of previously p rescribed intrauterine contraceptive device 08/17/2011 01/10/2012 Surveillance of previously prescribed contracept angel pill 03/03/2011 08/17/2011 Supervision of Normal First 04/01/2009 03/16/2010 Supervision of normal first 04/01/2009 12/08/2010 documented as of this encounter (statuses as of 02/04/2022) [facility] History of Past illness Narrative* Problem Noted Date Resolved Date Intrauterine growth restrict ion (IUGR) affecting care of mother, third trimester, single gestation 06/26/2018 10/27/2018 Supervision of normal 09/03/2014 06/06/2015 Depression 08/21/2014 06/06/2015 Overview: Post depression, 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 Since then she was on Zoloft. Last Assessment & Plan: She is on Zoloft, for he depression, she is doing much better with it but could Use a lot of improvement, Her fiance and her MIL still think that she is sad. She is stressed with her ex who is causing her issues. 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 Family history of Down syndrome 01/11/2013 06/06/2015 Overview: 12/22/2017Patient's half-brother born with Down syndrome. Patient desires aneuploidy screening. TKRN Patient requested diagnostic testing 01/11/2013 06/06/2015 Overview: 09/03/14: Family h/o down syndrome. Patient's half brother with DS Papanicolaou smear of cervix with low grade squamous intraepithelial lesion (LGSIL) 06/26/2012 10/31/2013 General counseling for prescription of oral cont raceptives 05/29/2012 05/16/2013 Surveillance of previously p rescribed intrauterine contraceptive device 08/17/2011 01/10/2012 Surveillance of previously prescribed contracept angel pill 03/03/2011 08/17/2011 Supervision of Normal First 04/01/2009 03/16/2010 Supervision of normal first 04/01/2009 12/08/2010 documented as of this encounter (statuses as of 02/10/2022) [facility] History of Past illness Narrative* Problem Noted Date Resolved Date Intrauterine growth restrict ion (IUGR) affecting care of mother, third trimester, single gestation 06/26/2018 10/27/2018 Supervision of normal 09/03/2014 06/06/2015 Depression 08/21/2014 06/06/2015 Overview: Post depression, 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 Since then she was on Zoloft. Last Assessment & Plan: She is on Zoloft, for he depression, she is doing much better with it but could Use a lot of improvement, Her fiance and her MIL still think that she is sad. She is stressed with her ex who is causing her issues. 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 Family history of Down syndrome 01/11/2013 06/06/2015 Overview: 12/22/2017Patient's half-brother born with Down syndrome. Patient desires aneuploidy screening. TKRN Patient requested diagnostic testing 01/11/2013 06/06/2015 Overview: 09/03/14: Family h/o down syndrome. Patient's half brother with DS Papanicolaou smear of cervix with low grade squamous intraepithelial lesion (LGSIL) 06/26/2012 10/31/2013 General counseling for prescription of oral cont raceptives 05/29/2012 05/16/2013 Surveillance of previously p rescribed intrauterine contraceptive device 08/17/2011 01/10/2012 Surveillance of previously prescribed contracept angel pill 03/03/2011 08/17/2011 Supervision of Normal First 04/01/2009 03/16/2010 Supervision of normal first 04/01/2009 12/08/2010 documented as of this encounter (statuses as of 02/15/2022) [facility] History of Past illness Narrative* Problem Noted Date Resolved Date Intrauterine growth restrict ion (IUGR) affecting care of mother, third trimester, single gestation 06/26/2018 10/27/2018 Supervision of normal 09/03/2014 06/06/2015 Depression 08/21/2014 06/06/2015 Overview: Post depression, 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 Since then she was on Zoloft. Last Assessment & Plan: She is on Zoloft, for he depression, she is doing much better with it but could Use a lot of improvement, Her fiance and her MIL still think that she is sad. She is stressed with her ex who is causing her issues. 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 Family history of Down syndrome 01/11/2013 06/06/2015 Overview: 12/22/2017Patient's half-brother born with Down syndrome. Patient desires aneuploidy screening. TKRN Patient requested diagnostic testing 01/11/2013 06/06/2015 Overview: 09/03/14: Family h/o down syndrome. Patient's half brother with DS Papanicolaou smear of cervix with low grade squamous intraepithelial lesion (LGSIL) 06/26/2012 10/31/2013 General counseling for prescription of oral cont raceptives 05/29/2012 05/16/2013 Surveillance of previously p rescribed intrauterine contraceptive device 08/17/2011 01/10/2012 Surveillance of previously prescribed contracept angel pill 03/03/2011 08/17/2011 Supervision of Normal First 04/01/2009 03/16/2010 Supervision of normal first 04/01/2009 12/08/2010 documented as of this encounter (statuses as of 03/10/2022) [facility] History of Past illness Narrative* Problem Noted Date Resolved Date Intrauterine growth restrict ion (IUGR) affecting care of mother, third trimester, single gestation 06/26/2018 10/27/2018 Supervision of normal 09/03/2014 06/06/2015 Depression 08/21/2014 06/06/2015 Overview: Post depression, 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 Since then she was on Zoloft. Last Assessment & Plan: She is on Zoloft, for he depression, she is doing much better with it but could Use a lot of improvement, Her fiance and her MIL still think that she is sad. She is stressed with her ex who is causing her issues. 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 Family history of Down syndrome 01/11/2013 06/06/2015 Overview: 12/22/2017Patient's half-brother born with Down syndrome. Patient desires aneuploidy screening. TKRN Patient requested diagnostic testing 01/11/2013 06/06/2015 Overview: 09/03/14: Family h/o down syndrome. Patient's half brother with DS Papanicolaou smear of cervix with low grade squamous intraepithelial lesion (LGSIL) 06/26/2012 10/31/2013 General counseling for prescription of oral cont raceptives 05/29/2012 05/16/2013 Surveillance of previously p rescribed intrauterine contraceptive device 08/17/2011 01/10/2012 Surveillance of previously prescribed contracept angel pill 03/03/2011 08/17/2011 Supervision of Normal First 04/01/2009 03/16/2010 Supervision of normal first 04/01/2009 12/08/2010 documented as of this encounter (statuses as of 04/14/2022) [facility] History of Past illness Narrative* Problem Noted Date Resolved Date Intrauterine growth restrict ion (IUGR) affecting care of mother, third trimester, single gestation 06/26/2018 10/27/2018 Supervision of normal 09/03/2014 06/06/2015 Depression 08/21/2014 06/06/2015 Overview: Post depression, 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 Since then she was on Zoloft. Last Assessment & Plan: She is on Zoloft, for he depression, she is doing much better with it but could Use a lot of improvement, Her fiance and her MIL still think that she is sad. She is stressed with her ex who is causing her issues. 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 Family history of Down syndrome 01/11/2013 06/06/2015 Overview: 12/22/2017Patient's half-brother born with Down syndrome. Patient desires aneuploidy screening. TKRN Patient requested diagnostic testing 01/11/2013 06/06/2015 Overview: 09/03/14: Family h/o down syndrome. Patient's half brother with DS Papanicolaou smear of cervix with low grade squamous intraepithelial lesion (LGSIL) 06/26/2012 10/31/2013 General counseling for prescription of oral cont raceptives 05/29/2012 05/16/2013 Surveillance of previously p rescribed intrauterine contraceptive device 08/17/2011 01/10/2012 Surveillance of previously prescribed contracept angel pill 03/03/2011 08/17/2011 Supervision of Normal First 04/01/2009 03/16/2010 Supervision of normal first 04/01/2009 12/08/2010 documented as of this encounter (statuses as of 04/23/2022) [facility] History of Past illness Narrative* Problem Noted Date Resolved Date Intrauterine growth restrict ion (IUGR) affecting care of mother, third trimester, single gestation 06/26/2018 10/27/2018 Supervision of normal 09/03/2014 06/06/2015 Depression 08/21/2014 06/06/2015 Overview: Post depression, 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 Since then she was on Zoloft. Last Assessment & Plan: She is on Zoloft, for he depression, she is doing much better with it but could Use a lot of improvement, Her fiance and her MIL still think that she is sad. She is stressed with her ex who is causing her issues. 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 Family history of Down syndrome 01/11/2013 06/06/2015 Overview: 12/22/2017Patient's half-brother born with Down syndrome. Patient [facility]eu[facility] screening. [facility] Patient requested diagnostic testing 01/11/2013 06/06/2015 Overview: 09/03/14: Family h/o down syndrome. Patient's half brother with DS Papanicolaou smear of cervix with low grade squamous intraepithelial lesion (LGSIL) 06/26/2012 10/31/2013 General counseling for prescription of oral cont raceptives 05/29/2012 05/16/2013 Surveillance of previously p rescribed intrauterine contraceptive device 08/17/2011 01/10/2012 Surveillance of previously prescribed contracept angel pill 03/03/2011 08/17/2011 Supervision of Normal First 04/01/2009 03/16/2010 Supervision of normal first 04/01/2009 12/08/2010 documented as of this encounter (statuses as of 05/10/2022) [facility] History of Past illness Narrative* Problem Noted Date Resolved Date Intrauterine growth restrict ion (IUGR) affecting care of mother, third trimester, single gestation 06/26/2018 10/27/2018 Supervision of normal 09/03/2014 06/06/2015 Depression 08/21/2014 06/06/2015 Overview: Post depression, 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 Since then she was on Zoloft. Last Assessment & Plan: She is on Zoloft, for he depression, she is doing much better with it but could Use a lot of improvement, Her fiance and her MIL still think that she is sad. She is stressed with her ex who is causing her issues. 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 Family history of Down syndrome 01/11/2013 06/06/2015 Overview: 12/22/2017Patient's half-brother born with Down syndrome. Patient desires aneuploidy screening. TKN Patient requested diagnostic testing 01/11/2013 06/06/2015 Overview: 09/03/14: Family h/o down syndrome. Patient's half brother with DS Papanicolaou smear of cervix with low grade squamous intraepithelial lesion (LGSIL) 06/26/2012 10/31/2013 General counseling for prescription of oral cont raceptives 05/29/2012 05/16/2013 Surveillance of previously p rescribed intrauterine contraceptive device 08/17/2011 01/10/2012 Surveillance of previously prescribed contracept angel pill 03/03/2011 08/17/2011 Supervision of Normal First 04/01/2009 03/16/2010 Supervision of normal first 04/01/2009 12/08/2010 documented as of this encounter (statuses as of 06/09/2022) [facility] History of Past illness Narrative* Problem Noted Date Resolved Date Intrauterine growth restrict ion (IUGR) affecting care of mother, third trimester, single gestation 06/26/2018 10/27/2018 Supervision of normal 09/03/2014 06/06/2015 Depression 08/21/2014 06/06/2015 Overview: Post depression, 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 Since then she was on Zoloft. Last Assessment & Plan: She is on Zoloft, for he depression, she is doing much better with it but could Use a lot of improvement, Her fiance and her MIL still think that she is sad. She is stressed with her ex who is causing her issues. 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 Family history of Down syndrome 01/11/2013 06/06/2015 Overview: 12/22/2017Patient's half-brother born with Down syndrome. Patient desires aneuploidy screening. TKRN Patient requested diagnostic testing 01/11/2013 06/06/2015 Overview: 09/03/14: Family h/o down syndrome. Patient's half brother with DS Papanicolaou smear of cervix with low grade squamous intraepithelial lesion (LGSIL) 06/26/2012 10/31/2013 General counseling for prescription of oral cont raceptives 05/29/2012 05/16/2013 Surveillance of previously p rescribed intrauterine contraceptive device 08/17/2011 01/10/2012 Surveillance of previously prescribed contracept angel pill 03/03/2011 08/17/2011 Supervision of Normal First 04/01/2009 03/16/2010 Supervision of normal first 04/01/2009 12/08/2010 documented as of this encounter (statuses as of 06/10/2022) [facility] History of Past illness Narrative* Problem Noted Date Resolved Date Intrauterine growth restrict ion (IUGR) affecting care of mother, third trimester, single gestation 06/26/2018 10/27/2018 Supervision of normal 09/03/2014 06/06/2015 Depression 08/21/2014 06/06/2015 Overview: Post depression, 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 Since then she was on Zoloft. Last Assessment & Plan: She is on Zoloft, for he depression, she is doing much better with it but could Use a lot of improvement, Her fiance and her MIL still think that she is sad. She is stressed with her ex who is causing her issues. 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 Family history of Down syndrome 01/11/2013 06/06/2015 Overview: 12/22/2017Patient's half-brother born with Down syndrome. Patient desires aneuploidy screening. TKRN Patient requested diagnostic testing 01/11/2013 06/06/2015 Overview: 09/03/14: Family h/o down syndrome. Patient's half brother with DS Papanicolaou smear of cervix with low grade squamous intraepithelial lesion (LGSIL) 06/26/2012 10/31/2013 General counseling for prescription of oral cont raceptives 05/29/2012 05/16/2013 Surveillance of previously p rescribed intrauterine contraceptive device 08/17/2011 01/10/2012 Surveillance of previously prescribed contracept angel pill 03/03/2011 08/17/2011 Supervision of Normal First 04/01/2009 03/16/2010 Supervision of normal first 04/01/2009 12/08/2010 documented as of this encounter (statuses as of 06/16/2022) [facility] History of Past illness Narrative* Problem Noted Date Resolved Date Intrauterine growth restrict ion (IUGR) affecting care of mother, third trimester, single gestation 06/26/2018 10/27/2018 Supervision of normal 09/03/2014 06/06/2015 Depression 08/21/2014 06/06/2015 Overview: Post depression, 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 Since then she was on Zoloft. Last Assessment & Plan: She is on Zoloft, for he depression, she is doing much better with it but could Use a lot of improvement, Her fiance and her MIL still think that she is sad. She is stressed with her ex who is causing her issues. 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 Family history of Down syndrome 01/11/2013 06/06/2015 Overview: 12/22/2017Patient's half-brother born with Down syndrome. Patient desires aneuploidy screening. TKRN Patient requested diagnostic testing 01/11/2013 06/06/2015 Overview: 09/03/14: Family h/o down syndrome. Patient's half brother with DS Papanicolaou smear of cervix with low grade squamous intraepithelial lesion (LGSIL) 06/26/2012 10/31/2013 General counseling for prescription of oral cont raceptives 05/29/2012 05/16/2013 Surveillance of previously p rescribed intrauterine contraceptive device 08/17/2011 01/10/2012 Surveillance of previously prescribed contracept angel pill 03/03/2011 08/17/2011 Supervision of Normal First 04/01/2009 03/16/2010 Supervision of normal first 04/01/2009 12/08/2010 documented as of this encounter (statuses as of 06/16/2022) [facility] History of Past illness Narrative* Problem Noted Date Resolved Date Intrauterine growth restrict ion (IUGR) affecting care of mother, third trimester, single gestation 06/26/2018 10/27/2018 Supervision of normal 09/03/2014 06/06/2015 Depression 08/21/2014 06/06/2015 Overview: Post depression, 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 Since then she was on Zoloft. Last Assessment & Plan: She is on Zoloft, for he depression, she is doing much better with it but could Use a lot of improvement, Her fiance and her MIL still think that she is sad. She is stressed with her ex who is causing her issues. 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 Family history of Down syndrome 01/11/2013 06/06/2015 Overview: 12/22/2017Patient's half-brother born with Down syndrome. Patient desires aneuploidy screening. TKRN Patient requested diagnostic testing 01/11/2013 06/06/2015 Overview: 09/03/14: Family h/o down syndrome. Patient's half brother with DS Papanicolaou smear of cervix with low grade squamous intraepithelial lesion (LGSIL) 06/26/2012 10/31/2013 General counseling for prescription of oral cont raceptives 05/29/2012 05/16/2013 Surveillance of previously p rescribed intrauterine contraceptive device 08/17/2011 01/10/2012 Surveillance of previously prescribed contracept angel pill 03/03/2011 08/17/2011 Supervision of Normal First 04/01/2009 03/16/2010 Supervision of normal first 04/01/2009 12/08/2010 documented as of this encounter (statuses as of 06/29/2022) [facility] History of Past illness Narrative* Problem Noted Date Resolved Date Intrauterine growth restrict ion (IUGR) affecting care of mother, third trimester, single gestation 06/26/2018 10/27/2018 Supervision of normal 09/03/2014 06/06/2015 Depression 08/21/2014 06/06/2015 Overview: Post depression, 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 Since then she was on Zoloft. Last Assessment & Plan: She is on Zoloft, for he depression, she is doing much better with it but could Use a lot of improvement, Her fiance and her MIL still think that she is sad. She is stressed with her ex who is causing her issues. 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 Family history of Down syndrome 01/11/2013 06/06/2015 Overview: 12/22/2017Patient's half-brother born with Down syndrome. Patient desires aneuploidy screening. TKRN Patient requested diagnostic testing 01/11/2013 06/06/2015 Overview: 09/03/14: Family h/o down syndrome. Patient's half brother with DS Papanicolaou smear of cervix with low grade squamous intraepithelial lesion (LGSIL) 06/26/2012 10/31/2013 General counseling for prescription of oral cont raceptives 05/29/2012 05/16/2013 Surveillance of previously p rescribed intrauterine contraceptive device 08/17/2011 01/10/2012 Surveillance of previously prescribed contracept angel pill 03/03/2011 08/17/2011 Supervision of Normal First 04/01/2009 03/16/2010 Supervision of normal first 04/01/2009 12/08/2010 documented as of this encounter (statuses as of 07/09/2022) [facility] History of Past illness Narrative* Problem Noted Date Resolved Date Intrauterine growth restrict ion (IUGR) affecting care of mother, third trimester, single gestation 06/26/2018 10/27/2018 Supervision of normal 09/03/2014 06/06/2015 Depression 08/21/2014 06/06/2015 Overview: Post depression, 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 Since then she was on Zoloft. Last Assessment & Plan: She is on Zoloft, for he depression, she is doing much better with it but could Use a lot of improvement, Her fiance and her MIL still think that she is sad. She is stressed with her ex who is causing her issues. 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 Family history of Down syndrome 01/11/2013 06/06/2015 Overview: 12/22/2017Patient's half-brother born with Down syndrome. Patient desires aneuploidy screening. [facility] Patient requested diagnostic testing 01/11/2013 06/06/2015 Overview: 09/03/14: Family h/o down syndrome. Patient's half brother with DS Papanicolaou smear of cervix with low grade squamous intraepithelial lesion (LGSIL) 06/26/2012 10/31/2013 General counseling for prescription of oral cont raceptives 05/29/2012 05/16/2013 Surveillance of previously p rescribed intrauterine contraceptive device 08/17/2011 01/10/2012 Surveillance of previously prescribed contracept angel pill 03/03/2011 08/17/2011 Supervision of Normal First 04/01/2009 03/16/2010 Supervision of normal first 04/01/2009 12/08/2010 documented as of this encounter (statuses as of 09/06/2022) [facility] History of Past illness Narrative* Problem Noted Date Resolved Date Intrauterine growth restrict ion (IUGR) affecting care of mother, third trimester, single gestation 06/26/2018 10/27/2018 Supervision of normal 09/03/2014 06/06/2015 Depression 08/21/2014 06/06/2015 Overview: Post depression, 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 Since then she was on Zoloft. Last Assessment & Plan: She is on Zoloft, for he depression, she is doing much better with it but could Use a lot of improvement, Her fiance and her MIL still think that she is sad. She is stressed with her ex who is causing her issues. 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 Family history of Down syndrome 01/11/2013 06/06/2015 Overview: 12/22/2017Patient's half-brother born with Down syndrome. Patient desires aneuploidy screening. [facility] Patient requested diagnostic testing 01/11/2013 06/06/2015 Overview: 09/03/14: Family h/o down syndrome. Patient's half brother with DS Papanicolaou smear of cervix with low grade squamous intraepithelial lesion (LGSIL) 06/26/2012 10/31/2013 General counseling for prescription of oral cont raceptives 05/29/2012 05/16/2013 Surveillance of previously p rescribed intrauterine contraceptive device 08/17/2011 01/10/2012 Surveillance of previously prescribed contracept angel pill 03/03/2011 08/17/2011 Supervision of Normal First 04/01/2009 03/16/2010 Supervision of normal first 04/01/2009 12/08/2010 documented as of this encounter (statuses as of 09/20/2022) [facility] History of Past illness Narrative* Problem Noted Date Resolved Date Intrauterine growth restrict ion (IUGR) affecting care of mother, third trimester, single gestation 06/26/2018 10/27/2018 Supervision of normal 09/03/2014 06/06/2015 Depression 08/21/2014 06/06/2015 Overview: Post depression, 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 Since then she was on Zoloft. Last Assessment & Plan: She is on Zoloft, for he depression, she is doing much better with it but could Use a lot of improvement, Her fiance and her MIL still think that she is sad. She is stressed with her ex who is causing her issues. 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 Family history of Down syndrome 01/11/2013 06/06/2015 Overview: 12/22/2017Patient's half-brother born with Down syndrome. Patient desires aneuploidy screening. [facility] Patient requested diagnostic testing 01/11/2013 06/06/2015 Overview: 09/03/14: Family h/o down syndrome. Patient's half brother with DS Papanicolaou smear of cervix with low grade squamous intraepithelial lesion (LGSIL) 06/26/2012 10/31/2013 General counseling for prescription of oral cont raceptives 05/29/2012 05/16/2013 Surveillance of previously p rescribed intrauterine contraceptive device 08/17/2011 01/10/2012 Surveillance of previously prescribed contracept angel pill 03/03/2011 08/17/2011 Supervision of Normal First 04/01/2009 03/16/2010 Supervision of normal first 04/01/2009 12/08/2010 documented as of this encounter (statuses as of 09/22/2022) [facility] History of Past illness Narrative* Problem Noted Date Resolved Date Intrauterine growth restrict ion (IUGR) affecting care of mother, third trimester, single gestation 06/26/2018 10/27/2018 Supervision of normal 09/03/2014 06/06/2015 Depression 08/21/2014 06/06/2015 Overview: Post depression, 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 Since then she was on Zoloft. Last Assessment & Plan: She is on Zoloft, for he depression, she is doing much better with it but could Use a lot of improvement, Her fiance and her MIL still think that she is sad. She is stressed with her ex who is causing her issues. 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 Family history of Down syndrome 01/11/2013 06/06/2015 Overview: 12/22/2017Patient's half-brother born with Down syndrome. Patient desires aneuploidy screening. [facility] Patient requested diagnostic testing 01/11/2013 06/06/2015 Overview: 09/03/14: Family h/o down syndrome. Patient's half brother with DS Papanicolaou smear of cervix with low grade squamous intraepithelial lesion (LGSIL) 06/26/2012 10/31/2013 General counseling for prescription of oral cont raceptives 05/29/2012 05/16/2013 Surveillance of previously p rescribed intrauterine contraceptive device 08/17/2011 01/10/2012 Surveillance of previously prescribed contracept angel pill 03/03/2011 08/17/2011 Supervision of Normal First 04/01/2009 03/16/2010 Supervision of normal first 04/01/2009 12/08/2010 documented as of this encounter (statuses as of 11/17/2022) [facility] History of Past illness Narrative* Problem Noted Date Resolved Date Intrauterine growth restrict ion (IUGR) affecting care of mother, third trimester, single gestation 06/26/2018 10/27/2018 Supervision of normal 09/03/2014 06/06/2015 Depression 08/21/2014 06/06/2015 Overview: Post depression, 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 Since then she was on Zoloft. Last Assessment & Plan: She is on Zoloft, for he depression, she is doing much better with it but could Use a lot of improvement, Her fiance and her MIL still think that she is sad. She is stressed with her ex who is causing her issues. 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 Family history of Down syndrome 01/11/2013 06/06/2015 Overview: 12/22/2017Patient's half-brother born with Down syndrome. Patient desires aneuploidy screening. [facility] Patient requested diagnostic testing 01/11/2013 06/06/2015 Overview: 09/03/14: Family h/o down syndrome. Patient's half brother with DS Papanicolaou smear of cervix with low grade squamous intraepithelial lesion (LGSIL) 06/26/2012 10/31/2013 General counseling for prescription of oral cont raceptives 05/29/2012 05/16/2013 Surveillance of previously p rescribed intrauterine contraceptive device 08/17/2011 01/10/2012 Surveillance of previously prescribed contracept angel pill 03/03/2011 08/17/2011 Supervision of Normal First 04/01/2009 03/16/2010 Supervision of normal first 04/01/2009 12/08/2010 documented as of this encounter (statuses as of 01/12/2023) [facility] History of Past illness Narrative* Problem Noted Date Resolved Date Intrauterine growth restrict ion (IUGR) affecting care of mother, third trimester, single gestation 06/26/2018 10/27/2018 Supervision of normal 09/03/2014 06/06/2015 Depression 08/21/2014 06/06/2015 Overview: Post depression, 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 Since then she was on Zoloft. Last Assessment & Plan: She is on Zoloft, for he depression, she is doing much better with it but could Use a lot of improvement, Her fiance and her MIL still think that she is sad. She is stressed with her ex who is causing her issues. 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 Family history of Down syndrome 01/11/2013 06/06/2015 Overview: 12/22/2017Patient's half-brother born with Down syndrome. Patient desires aneuploidy screening. [facility] Patient requested diagnostic testing 01/11/2013 06/06/2015 Overview: 09/03/14: Family h/o down syndrome. Patient's half brother with DS Papanicolaou smear of cervix with low grade squamous intraepithelial lesion (LGSIL) 06/26/2012 10/31/2013 General counseling for prescription of oral cont raceptives 05/29/2012 05/16/2013 Surveillance of previously p rescribed intrauterine contraceptive device 08/17/2011 01/10/2012 Surveillance of previously prescribed contracept angel pill 03/03/2011 08/17/2011 Supervision of Normal First 04/01/2009 03/16/2010 Supervision of normal first 04/01/2009 12/08/2010 documented as of this encounter (statuses as of 03/13/2023) [facility] History of Past illness Narrative* Problem Noted Date Resolved Date Intrauterine growth restrict ion (IUGR) affecting care of mother, third trimester, single gestation 06/26/2018 10/27/2018 Supervision of normal 09/03/2014 06/06/2015 Depression 08/21/2014 06/06/2015 Overview: Post depression, 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 Since then she was on Zoloft. Last Assessment & Plan: She is on Zoloft, for he depression, she is doing much better with it but could Use a lot of improvement, Her fiance and her MIL still think that she is sad. She is stressed with her ex who is causing her issues. 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 Family history of Down syndrome 01/11/2013 06/06/2015 Overview: 12/22/2017Patient's half-brother born with Down syndrome. Patient desires aneuploidy screening. [facility] Patient requested diagnostic testing 01/11/2013 06/06/2015 Overview: 09/03/14: Family h/o down syndrome. Patient's half brother with DS Papanicolaou smear of cervix with low grade squamous intraepithelial lesion (LGSIL) 06/26/2012 10/31/2013 General counseling for prescription of oral cont raceptives 05/29/2012 05/16/2013 Surveillance of previously p rescribed intrauterine contraceptive device 08/17/2011 01/10/2012 Surveillance of previously prescribed contracept angel pill 03/03/2011 08/17/2011 Supervision of Normal First 04/01/2009 03/16/2010 Supervision of normal first 04/01/2009 12/08/2010 documented as of this encounter (statuses as of 04/11/2023) [facility] History of Past illness Narrative* Problem Noted Date Diagnosed Date Resolved Date Intrauterine growth restrict ion (IUGR) affecting care of mother, third trimester, single gestation 06/26/2018 10/27/2018 Supervision of normal 09/03/2014 06/06/2015 Depression 08/21/2014 06/06/2015 Overview: Post depression, 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 Since then she was on Zoloft. Last Assessment & Plan: She is on Zoloft, for he depression, she is doing much better with it but could Use a lot of improvement, Her fiance and her MIL still think that she is sad. She is stressed with her ex who is causing her issues. 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 Family history of Down syndrome 01/11/2013 06/06/2015 Overview: 12/22/2017Patient's half-brother born with Down syndrome. Patient desires aneuploidy screening. [facility] Patient requested diagnostic testing 01/11/2013 06/06/2015 Overview: 09/03/14: Family h/o down syndrome. Patient's half brother with DS Papanicolaou smear of cervix with low grade squamous intraepithelial lesion (LGSIL) 06/26/2012 10/31/2013 General counseling for pres ription of oral contraceptives 05/29/2012 05/16/2013 Surveillance of previously p rescribed intrauterine contraceptive device 08/17/20112011 Surveillance of previously p rescribed contraceptive pill 03/03/2011 08/17/2011 Supervision of Normal First 04/01/2009 03/16/2010 Supervision of normal first 04/01/2009 12/08/2010 documented as of this encounter (statuses as of 05/25/2023) [facility] History of Past illness Narrative* Problem Noted Date Diagnosed Date Resolved Date Intrauterine growth restrict ion (IUGR) affecting care of mother, third trimester, single gestation 06/26/2018 10/27/2018 Supervision of normal 09/03/2014 06/06/2015 Depression 08/21/2014 06/06/2015 Overview: Post depression, 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 Since then she was on Zoloft. Last Assessment & Plan: She is on Zoloft, for he depression, she is doing much better with it but could Use a lot of improvement, Her fiance and her MIL still think that she is sad. She is stressed with her ex who is causing her issues. She works at a [employer]. She enjoys her work. Family history of Down syndrome 01/11/2013 06/06/2015 Overview: 12/22/2017Patient's half-brother born with Down syndrome. Patient desires aneuploidy screening. [facility] Patient requested diagnostic testing 01/11/2013 06/06/2015 Overview: 09/03/14: Family h/o down syndrome. Patient's half brother with DS Papanicolaou smear of cervix with low grade squamous intraepithelial lesion (LGSIL) 06/26/2012 10/31/2013 General counseling for presc ription of oral contraceptives 05/29/2012 05/16/2013 Surveillance of previously p rescribed intrauterine contraceptive device 08/17/20112011 Surveillance of previously p rescribed contraceptive pill 03/03/2011 08/17/2011 Supervision of Normal First 04/01/2009 03/16/2010 Supervision of normal first 04/01/2009 12/08/2010 documented as of this encounter (statuses as of 07/08/2023) [facility] History of Past illness Narrative* Problem Noted Date Diagnosed Date Resolved Date Intrauterine growth restrict ion (IUGR) affecting care of mother, third trimester, single gestation 06/26/2018 10/27/2018 Supervision of normal 09/03/2014 06/06/2015 Depression 08/21/2014 06/06/2015 Overview: Post depression, 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 Since then she was on Zoloft. Last Assessment & Plan: She is on Zoloft, for he depression, she is doing much better with it but could Use a lot of improvement, Her fiance and her MIL still think that she is sad. She is stressed with her ex who is causing her issues. 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 Family history of Down syndrome 01/11/2013 06/06/2015 Overview: 12/22/2017Patient's half-brother born with Down syndrome. Patient desires aneuploidy screening. [facility] Patient requested diagnostic testing 01/11/2013 06/06/2015 Overview: 09/03/14: Family h/o down syndrome. Patient's half brother with DS Papanicolaou smear of cervix with low grade squamous intraepithelial lesion (LGSIL) 06/26/2012 10/31/2013 General counseling for presc ription of oral contraceptives 05/29/2012 05/16/2013 Surveillance of previously p rescribed intrauterine contraceptive device 08/17/20112011 Surveillance of previously p rescribed contraceptive pill 03/03/2011 08/17/2011 Supervision of Normal First 04/01/2009 03/16/2010 Supervision of normal first 04/01/2009 12/08/2010 documented as of this encounter (statuses as of 07/21/2023) [facility] History of Past illness Narrative* Problem Noted Date Diagnosed Date Resolved Date Intrauterine growth restrict ion (IUGR) affecting care of mother, third trimester, single gestation 06/26/2018 10/27/2018 Supervision of normal 09/03/2014 06/06/2015 Depression 08/21/2014 06/06/2015 Overview: Post depression, 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 Since then she was on Zoloft. Last Assessment & Plan: She is on Zoloft, for he depression, she is doing much better with it but could Use a lot of improvement, Her fiance and her MIL still think that she is sad. She is stressed with her ex who is causing her issues. 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 Family history of Down syndrome 01/11/2013 06/06/2015 Overview: 12/22/2017Patient's half-brother born with Down syndrome. Patient desires aneuploidy screening. [facility] Patient requested diagnostic testing 01/11/2013 06/06/2015 Overview: 09/03/14: Family h/o down syndrome. Patient's half brother with DS Papanicolaou smear of cervix with low grade squamous intraepithelial lesion (LGSIL) 06/26/2012 10/31/2013 General counseling for presc ription of oral contraceptives 05/29/2012 05/16/2013 Surveillance of previously p rescribed intrauterine contraceptive device 08/17/20112011 Surveillance of previously p rescribed contraceptive pill 03/03/2011 08/17/2011 Supervision of Normal First 04/01/2009 03/16/2010 Supervision of normal first 04/01/2009 12/08/2010 documented as of this encounter (statuses as of 07/22/2023) [facility] History of Past illness Narrative* Problem Noted Date Diagnosed Date Resolved Date Intrauterine growth restrict ion (IUGR) affecting care of mother, third trimester, single gestation 06/26/2018 10/27/2018 Supervision of normal 09/03/2014 06/06/2015 Depression 08/21/2014 06/06/2015 Overview: Post depression, 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 Since then she was on Zoloft. Last Assessment & Plan: She is on Zoloft, for he depression, she is doing much better with it but could Use a lot of improvement, Her fiance and her MIL still think that she is sad. She is stressed with her ex who is causing her issues. 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 Family history of Down syndrome 01/11/2013 06/06/2015 Overview: 12/22/2017Patient's half-brother born with Down syndrome. Patient desires aneuploidy screening. [facility] Patient requested diagnostic testing 01/11/2013 06/06/2015 Overview: 09/03/14: Family h/o down syndrome. Patient's half brother with DS Papanicolaou smear of cervix with low grade squamous intraepithelial lesion (LGSIL) 06/26/2012 10/31/2013 General counseling for presc ription of oral contraceptives 05/29/2012 05/16/2013 Surveillance of previously p rescribed intrauterine contraceptive device 08/17/20112011 Surveillance of previously p rescribed contraceptive pill 03/03/2011 08/17/2011 Supervision of Normal First 04/01/2009 03/16/2010 Supervision of normal first 04/01/2009 12/08/2010 documented as of this encounter (statuses as of 08/12/2023) [facility] of Past illness Narrative* Problem Noted Date Diagnosed Date Resolved Date Intrauterine growth restrict ion (IUGR) affecting care of mother, third trimester, single gestation 06/26/2018 10/27/2018 Supervision of normal 09/03/2014 06/06/2015 Depression 08/21/2014 06/06/2015 Overview: Post depression, 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 Since then she was on Zoloft. Last Assessment & Plan: She is on Zoloft, for he depression, she is doing much better with it but could Use a lot of improvement, Her fiance and her MIL still think that she is sad. She is stressed with her ex who is causing her issues. 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 Family history of Down syndrome 01/11/2013 06/06/2015 Overview: 12/22/2017Patient's half-brother born with Down syndrome. Patient desires aneuploidy screening. [facility] Patient requested diagnostic testing 01/11/2013 06/06/2015 Overview: 09/03/14: Family h/o down syndrome. Patient's half brother with DS Papanicolaou smear of cervix with low grade squamous intraepithelial lesion (LGSIL) 06/26/2012 10/31/2013 General counseling for presc ription of oral contraceptives 05/29/2012 05/16/2013 Surveillance of previously p rescribed intrauterine contraceptive device 08/17/20112011 Surveillance of previously p rescribed contraceptive pill 03/03/2011 08/17/2011 Supervision of Normal First 04/01/2009 03/16/2010 Supervision of normal first 04/01/2009 12/08/2010 documented as of this encounter (statuses as of 08/24/2023) [facility] of Past illness Narrative* Problem Noted Date Diagnosed Date Resolved Date Intrauterine growth restrict ion (IUGR) affecting care of mother, third trimester, single gestation 06/26/2018 10/27/2018 Supervision of normal 09/03/2014 06/06/2015 Depression 08/21/2014 06/06/2015 Overview: Post depression, 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 Since then she was on Zoloft. Last Assessment & Plan: She is on Zoloft, for he depression, she is doing much better with it but could Use a lot of improvement, Her fiance and her MIL still think that she is sad. She is stressed with her ex who is causing her issues. She works at a [employer]. She enjoys her work. Family history of Down syndrome 01/11/2013 06/06/2015 Overview: 12/22/2017Patient's half-brother born with Down syndrome. Patient desires aneuploidy screening. [facility] Patient requested diagnostic testing 01/11/2013 06/06/2015 Overview: 09/03/14: Family h/o down syndrome. Patient's half brother with DS Papanicolaou smear of cervix with low grade squamous intraepithelial lesion (LGSIL) 06/26/2012 10/31/2013 General counseling for pres ription of oral contraceptives 05/29/2012 05/16/2013 Surveillance of previously p rescribed intrauterine contraceptive device 08/17/20112011 Surveillance of previously p rescribed contraceptive pill 03/03/2011 08/17/2011 Supervision of Normal First 04/01/2009 03/16/2010 Supervision of normal first 04/01/2009 12/08/2010 documented as of this encounter (statuses as of 08/29/2023) [facility] of Past illness Narrative* Problem Noted Date Diagnosed Date Resolved Date Intrauterine growth restrict ion (IUGR) affecting care of mother, third trimester, single gestation 06/26/2018 10/27/2018 Supervision of normal 09/03/2014 06/06/2015 Depression 08/21/2014 06/06/2015 Overview: Post depression, 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 Since then she was on Zoloft. Last Assessment & Plan: She is on Zoloft, for he depression, she is doing much better with it but could Use a lot of improvement, Her fiance and her MIL still think that she is sad. She is stressed with her ex who is causing her issues. 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 Family history of Down syndrome 01/11/2013 06/06/2015 Overview: 12/22/2017Patient's half-brother born with Down syndrome. Patient desires aneuploidy screening. [facility] Patient requested diagnostic testing 01/11/2013 06/06/2015 Overview: 09/03/14: Family h/o down syndrome. Patient's half brother with DS Papanicolaou smear of cervix with low grade squamous intraepithelial lesion (LGSIL) 06/26/2012 10/31/2013 General counseling for pres ription of oral contraceptives 05/29/2012 05/16/2013 Surveillance of previously p rescribed intrauterine contraceptive device 08/17/20112011 Surveillance of previously p rescribed contraceptive pill 03/03/2011 08/17/2011 Supervision of Normal First 04/01/2009 03/16/2010 Supervision of normal first 04/01/2009 12/08/2010 documented as of this encounter (statuses as of 09/14/2023) [facility] of Past illness Narrative* Problem Noted Date Diagnosed Date Resolved Date Intrauterine growth restrict ion (IUGR) affecting care of mother, third trimester, single gestation 06/26/2018 10/27/2018 Supervision of normal 09/03/2014 06/06/2015 Depression 08/21/2014 06/06/2015 Overview: Post depression, 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 Since then she was on Zoloft. Last Assessment & Plan: She is on Zoloft, for he depression, she is doing much better with it but could Use a lot of improvement, Her fiance and her MIL still think that she is sad. She is stressed with her ex who is causing her issues. 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 Family history of Down syndrome 01/11/2013 06/06/2015 Overview: 12/22/2017Patient's half-brother born with Down syndrome. Patient desires aneuploidy screening. [facility]KR[facility] Patient requested diagnostic testing 01/11/2013 06/06/2015 Overview: 09/03/14: Family h/o down syndrome. Patient's half brother with DS Papanicolaou smear of cervix with low grade squamous intraepithelial lesion (LGSIL) 06/26/2012 10/31/2013 General counseling for presc ription of oral contraceptives 05/29/2012 05/16/2013 Surveillance of previously p rescribed intrauterine contraceptive device 08/17/20112011 Surveillance of previously p rescribed contraceptive pill 03/03/2011 08/17/2011 Supervision of Normal First 04/01/2009 03/16/2010 Supervision of normal first 04/01/2009 12/08/2010 documented as of this encounter (statuses as of 09/20/2023) [facility] History of Past illness Narrative* Problem Noted Date Diagnosed Date Resolved Date Intrauterine growth restrict ion (IUGR) affecting care of mother, third trimester, single gestation 06/26/2018 10/27/2018 Supervision of normal 09/03/2014 06/06/2015 Depression 08/21/2014 06/06/2015 Overview: Post depression, 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 Since then she was on Zoloft. Last Assessment & Plan: She is on Zoloft, for he depression, she is doing much better with it but could Use a lot of improvement, Her fiance and her MIL still think that she is sad. She is stressed with her ex who is causing her issues. 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 Family history of Down syndrome 01/11/2013 06/06/2015 Overview: 12/22/2017Patient's half-brother born with Down syndrome. Patient desires aneuploidy screening. TKRN Patient requested diagnostic testing 01/11/2013 06/06/2015 Overview: 09/03/14: Family h/o down syndrome. Patient's half brother with DS Papanicolaou smear of cervix with low grade squamous intraepithelial lesion (LGSIL) 06/26/2012 10/31/2013 General counseling for presc ription of oral contraceptives 05/29/2012 05/16/2013 Surveillance of previously p rescribed intrauterine contraceptive device 08/17/20112011 Surveillance of previously p rescribed contraceptive pill 03/03/2011 08/17/2011 Supervision of Normal First 04/01/2009 03/16/2010 Supervision of normal first 04/01/2009 12/08/2010 documented as of this encounter (statuses as of 09/22/2023) [facility] History of Past illness Narrative* Problem Noted Date Diagnosed Date Resolved Date Intrauterine growth restrict ion (IUGR) affecting care of mother, third trimester, single gestation 06/26/2018 10/27/2018 Supervision of normal 09/03/2014 06/06/2015 Family history of Down syndrome 01/11/2013 06/06/2015 Overview: 12/22/2017Patient's half-brother born with Down syndrome. Patient desires aneuploidy screening. TKRN Patient requested diagnostic testing 01/11/2013 06/06/2015 Overview: 09/03/14: Family h/o down syndrome. Patient's half brother with DS Papanicolaou smear of cervix with low grade squamous intraepithelial lesion (LGSIL) 06/26/2012 10/31/2013 General counseling for presc ription of oral contraceptives 05/29/2012 05/16/2013 Surveillance of previously p rescribed intrauterine contraceptive device 08/17/20112011 Surveillance of previously p rescribed contraceptive pill 03/03/2011 08/17/2011 Supervision of Normal First 04/01/2009 03/16/2010 Supervision of normal first 04/01/2009 12/08/2010 documented as of this encounter (statuses as of 09/29/2023) [facility] History of Past illness Narrative* Problem Noted Date Diagnosed Date Resolved Date Intrauterine growth restrict ion (IUGR) affecting care of mother, third trimester, single gestation 06/26/2018 10/27/2018 Supervision of normal 09/03/2014 06/06/2015 Family history of Down syndrome 01/11/2013 06/06/2015 Overview: 12/22/2017Patient's half-brother born with Down syndrome. Patient desires aneuploidy screening. TKRN Patient requested diagnostic testing 01/11/2013 06/06/2015 Overview: 09/03/14: Family h/o down syndrome. Patient's half brother with DS Papanicolaou smear of cervix with low grade squamous intraepithelial lesion (LGSIL) 06/26/2012 10/31/2013 General counseling for presc ription of oral contraceptives 05/29/2012 05/16/2013 Surveillance of previously p rescribed intrauterine contraceptive device 08/17/20112011 Surveillance of previously p rescribed contraceptive pill 03/03/2011 08/17/2011 Supervision of Normal First 04/01/2009 03/16/2010 Supervision of normal first 04/01/2009 12/08/2010 documented as of this encounter (statuses as of 09/29/2023) [facility] Viral illness- Primary Unspecified viral infection, in conditions classified elsewhere and of unspecified site [facility] Diagnosis Breakthrough bleeding on contraceptive patch- Primary [facility]rhagia [facility] Dysmenorrhea- Primary [facility] Diagnosis Abnormal uterine bleeding (AUB)- Primary Adenomyosis Endometriosis of uterus Breakthrough bleeding on contraceptive patch Metrorrhagia [facility] Diagnosis Abnormal uterine bleeding (AUB)- Primary Post-operative pain Other acute postoperative pain Encounter for screening for malignant neoplasm of cervix Screening for malignant neoplasm of the cervix Special screening examination for human papillomavirus (HPV) [facility] Diagnosis Post-operative state- Primary Other postprocedural status [facility] Diagnosis Mass of lower outer quadrant of left breast- Primary [facility] Diagnosis Mass of lower outer quadrant of left breast [facility]* Diagnosis Mass of lower outer quadrant of left breast [facility]* Diagnosis Viral illness- Primary Unspecified viral infection, in conditions classified elsewhere and of unspecified site Acute cough documented in this encounter [facility] note* Diagnosis Annual physical exam- Primary Routine general medical examination at a health care facility Special screening examination for viral disease Special screening examination for unspecified viral disease KACY (generalized anxiety disorder) Generalized anxiety disorder [facility]* Diagnosis Hair loss Alopecia, unspecified documented in this encounter [facility] note* Diagnosis Burning with urination- Primary Dysuria [facility] Diagnosis Depression with anxiety- Primary Dysthymic disorder Hypertriglyceridemia Pure hyperglyceridemia Family history of diabetes mellitus in mother Weight gain Abnormal weight gain History of anemia Personal history of diseases of blood and blood-forming organs [facility] Diagnosis Depression with anxiety- Primary Dysthymic disorder Hypoglycemia Hypoglycemia, unspecified Hypertriglyceridemia Pure hyperglyceridemia [facility]* Diagnosis Recurrent UTI (urinary tract infection)- Primary Urinary tract infection, site not specified Urinary frequency documented in this encounter [facility] note* Diagnosis Mass of lower outer quadrant of left breast- Primary [facility] Diagnosis URI, acute- Primary Acute upper respiratory infections of unspecified site Sore throat Acute pharyngitis [facility]* Diagnosis Depression with anxiety Dysthymic disorder [facility]* Diagnosis Pre-op evaluation- Primary Preoperative examination, unspecified PONV (postoperative nausea and vomiting) Nausea with vomiting History of cervical cancer Personal history of malignant neoplasm of cervix uteri Anxiety with depression Lipoma of torso documented in this encounter [facility] for referral (narrative)* Diagnostic Procedure Only (Routine) - Authorized Specialty Diagnoses / Procedures Referred By Contac t Referred To Contact [facility] Diagnoses Breakthrough bleeding on contraceptive patch Procedures PELVIC US WHI US PELVIC NONOBSTETRIC REAL-TIME IMAGE COMPLETE Cammy Rivera MD [address] [place] [address] [facility] [address] [place] [address] Referral ID Status Reason Start Date Expiration Date Visits Requested Visits Authorized [id number] Authorized Auto-Generat ed Referral 02/04/2022 02/04/2023 1 1 [facility] for referral (narrative)* Diagnostic Procedure Only (Routine) - Pending Review Specialty Diagnoses / Procedures Referred By Contac t Referred To Contact [facility] Diagnoses Mass of lower outer quadrant of left breast Procedures AMILCAR DIAGNOSTIC BILAT DIAGNOSTIC MAMMOGRAPHY COMPUTER-AIDED DETCJ BI Lila Bull APRN.TRANSMISSION SUPERINTENDENT [address] [place] [address] [facility] [address] [place] [address] Referral ID Status Reason Start Date Expiration Date Visits Requested Visits Authorized [id number] Pending Review Auto-Generat ed Referral 06/10/2022 07/10/2023 1 1 * Diagnostic Procedure Only (Routine) - Pending Review Specialty Diagnoses / Procedures Referred By Contac t Referred To Contact [facility] Diagnoses Mass of lower outer quadrant of left breast Procedures US BREAST LTD LT US BREAST UNI REAL TIME WITH IMAGE LIMITED Lila Bull APRN.TRANSMISSION SUPERINTENDENT [address] [place] [address] [facility] [address] [place] [address] Referral ID Status Reason Start Date Expiration Date Visits Requested Visits Authorized [id number] Pending Review Auto-Generat ed Referral 06/10/2022 07/10/2023 1 1 * Diagnostic Procedure Only (Routine) - Authorized Specialty Diagnoses / Procedures Referred By Contac t Referred To Contact [facility] Diagnoses Mass of lower outer quadrant of left breast Procedures AMILCAR DIAGNOSTIC LT DIAGNOSTIC MAMMOGRAPHY COMPUTER-AIDED DETCJ UNI Lila Bull APRN.TRANSMISSION SUPERINTENDENT [address] [place] [address] [facility] [address] [place] [address] Referral ID Status Reason Start Date Expiration Date Visits Requested Visits Authorized [id number] Authorized Auto-Generat ed Referral 06/10/2022 07/10/2023 1 1 [facility] for referral (narrative)* Diagnostic Procedure Only (Routine) - Closed Specialty Diagnoses / Procedures Referred By Telma t Referred To Contact [facility] Diagnoses Mass of lower outer quadrant of left breast Procedures AMILCAR DIAGNOSTIC BILAT DIAGNOSTIC MAMMOGRAPHY COMPUTER-AIDED DETCJ BI Lila Bull APRN.TRANSMISSION SUPERINTENDENT [address] [place] [address] [facility] [address] [place] [address] Referral ID Status Reason Start Date Expiration Date V isits Requested Visits Authorized [id number] Closed Auto-Generate d Referral 06/10/2022 07/10/2023 1 1 [facility] for referral (narrative)* Diagnostic Procedure Only (Routine) - Closed Specialty Diagnoses / Procedures Referred By Contac t Referred To Contact [facility] Diagnoses Mass of lower outer quadrant of left breast Procedures US BREAST LTD LT US BREAST UNI REAL TIME WITH IMAGE LIMITED Lila Bull APRN.TRANSMISSION SUPERINTENDENT [address] [place] [address] [facility] [address] [place] [address] Referral ID Status Reason Start Date Expiration Date V isits Requested Visits Authorized [id number] Closed Auto-Generate d Referral 06/10/2022 07/10/2023 1 1 [facility] for visit Narrative* Diagnostic Procedure Only (Routine) - Closed Specialty Diagnoses / Procedures Referred By Mikeac t Referred To Contact [facility] Diagnoses Mass of lower outer quadrant of left breast Procedures AMILCAR DIAGNOSTIC BILAT DIAGNOSTIC MAMMOGRAPHY COMPUTER-AIDED DETCJ BI Lila Bull APRN.TRANSMISSION SUPERINTENDENT [address] [place] [place] [address] [facility] [address] [place] [address] Referral ID Status Reason Start Date Expiration Date V isits Requested Visits Authorized [id number] Closed Auto-Generate d Referral 06/10/2022 07/10/2023 1 1 [facility] Concerns Infection Onset Date Last Indicated Resolved Time COVID-19 Rule-Out 06/29/2022 06/29/2022 Infection Onset Date Last Indicated Resolved Time COVID-19 Confirmed 06/29/2022 06/29/2022 Infection Onset Date Last Indicated Resolved Time COVID-19 Confirmed 09/14/2023 09/14/2023 Reason for Referral Specialty Diagnoses / Procedures Referred By Contac t Referred To Contact [facility] Surgery Diagnoses Mass of lower outer quadrant of left breast Procedures CONSULT TO GENERAL SURGERY OFFICE/OUTPATIENT NEW HIGH MDM 60-74 MINUTES Neena Cary APRN.TRANSMISSION SUPERINTENDENT [address] [place] [address] Referral ID Status Reason Start Date Expiration Date Visits Requested Visits Authorized [id number] Authorized PCP Requested Referral 3 08/28/2024 1 1 Specialty Diagnoses / Procedures Referred By Contac t Referred To Contact [facility] Diagnoses Mass of lower outer quadrant of left breast Procedures US BREAST LTD LEFT US BREAST UNI REAL TIME WITH IMAGE LIMITED Neena Cary APRN.TRANSMISSION SUPERINTENDENT [address] [place] [address] [facility] [address] [place] [address] Referral ID Status Reason Start Date Expiration Date Visits Requested Visits Authorized [id number] Authorized Auto-Generat ed Referral 3 09/27/2024 1 1 Specialty Diagnoses / Procedures Referred By Telma steven Referred To Contact [facility] Diagnoses Mass of lower outer quadrant of left breast Procedures AMILCAR DIAGNOSTIC LEFT DIAGNOSTIC MAMMOGRAPHY COMPUTER-AIDED DETCJ UNI Neena Cary, MANAGER [employer]BI[employer].TRANSMISSION SUPERINTENDENT [address] [place] [address] [facility] [address] [place] [address] Referral ID Status Reason Start Date Expiration Date Visits Requested Visits Authorized [id number] Authorized Auto-Generat ed Referral 3 09/27/2024 1 1 Summary Purpose Family History No Family History Records FoundNo Family History Records Found Advance Directives No Advanced Directives Records FoundNo Advanced Directives Records Found Additional Source Comments Source Comments (unrecognize d section and content) In the event this informatio n is protected by the Federal Confidentiality of Alcohol and Drug Abuse Patient Records regulations: The Federal rules restrict any use of the information to criminally investigate or prosecute any alcohol or drug abuse patient.[facility] the event this information is protected by the Federal Confidentiality of Alcohol and Drug Abuse Patient Records regulations: The Federal rules restrict any use of the information to criminally investigate or prosecute any alcohol or drug abuse patient.[facility] the event this information is protected by the Federal Confidentiality of Alcohol and Drug Abuse Patient Records regulations: The Federal rules restrict any use of the information to criminally investigate or prosecute any alcohol or drug abuse patient.[facility] the event this information is protected by the Federal Confidentiality of Alcohol and Drug Abuse Patient Records regulations: The Federal rules restrict any use of the information to criminally investigate or prosecute any alcohol or drug abuse patient.[facility] the event this information is protected by the Federal Confidentiality of Alcohol and Drug Abuse Patient Records regulations: The Federal rules restrict any use of the information to criminally investigate or prosecute any alcohol or drug abuse patient.[facility] the event this information is protected by the Federal Confidentiality of Alcohol and Drug Abuse Patient Records regulations: The Federal rules restrict any use of the information to criminally investigate or prosecute any alcohol or drug abuse patient.[facility] the event this information is protected by the Federal Confidentiality of Alcohol and Drug Abuse Patient Records regulations: The Federal rules restrict any use of the information to criminally investigate or prosecute any alcohol or drug abuse patient.[facility] the event this information is protected by the Federal Confidentiality of Alcohol and Drug Abuse Patient Records regulations: The Federal rules restrict any use of the information to criminally investigate or prosecute any alcohol or drug abuse patient.[facility] the event this information is protected by the Federal Confidentiality of Alcohol and Drug Abuse Patient Records regulations: The Federal rules restrict any use of the information to criminally investigate or prosecute any alcohol or drug abuse patient.[facility] the event this information is protected by the Federal Confidentiality of Alcohol and Drug Abuse Patient Records regulations: The Federal rules restrict any use of the information to criminally investigate or prosecute any alcohol or drug abuse patient.[facility] the event this information is protected by the Federal Confidentiality of Alcohol and Drug Abuse Patient Records regulations: The Federal rules restrict any use of the information to criminally investigate or prosecute any alcohol or drug abuse patient.[facility] the event this information is protected by the Federal Confidentiality of Alcohol and Drug Abuse Patient Records regulations: The Federal rules restrict any use of the information to criminally investigate or prosecute any alcohol or drug abuse patient.[facility] the event this information is protected by the Federal Confidentiality of Alcohol and Drug Abuse Patient Records regulations: The Federal rules restrict any use of the information to criminally investigate or prosecute any alcohol or drug abuse patient.[facility] the event this information is protected by the Federal Confidentiality of Alcohol and Drug Abuse Patient Records regulations: The Federal rules restrict any use of the information to criminally investigate or prosecute any alcohol or drug abuse patient.[facility] the event this information is protected by the Federal Confidentiality of Alcohol and Drug Abuse Patient Records regulations: The Federal rules restrict any use of the information to criminally investigate or prosecute any alcohol or drug abuse patient.[facility] the event this information is protected by the Federal Confidentiality of Alcohol and Drug Abuse Patient Records regulations: The Federal rules restrict any use of the information to criminally investigate or prosecute any alcohol or drug abuse patient.[facility] the event this information is protected by the Federal Confidentiality of Alcohol and Drug Abuse Patient Records regulations: The Federal rules restrict any use of the information to criminally investigate or prosecute any alcohol or drug abuse patient.[facility] the event this information is protected by the Federal Confidentiality of Alcohol and Drug Abuse Patient Records regulations: The Federal rules restrict any use of the information to criminally investigate or prosecute any alcohol or drug abuse patient.[facility] the event this information is protected by the Federal Confidentiality of Alcohol and Drug Abuse Patient Records regulations: The Federal rules restrict any use of the information to criminally investigate or prosecute any alcohol or drug abuse patient.[facility] the event this information is protected by the Federal Confidentiality of Alcohol and Drug Abuse Patient Records regulations: The Federal rules restrict any use of the information to criminally investigate or prosecute any alcohol or drug abuse patient.[facility] the event this information is protected by the Federal Confidentiality of Alcohol and Drug Abuse Patient Records regulations: The Federal rules restrict any use of the information to criminally investigate or prosecute any alcohol or drug abuse patient.[facility] the event this information is protected by the Federal Confidentiality of Alcohol and Drug Abuse Patient Records regulations: The Federal rules restrict any use of the information to criminally investigate or prosecute any alcohol or drug abuse patient.[facility] the event this information is protected by the Federal Confidentiality of Alcohol and Drug Abuse Patient Records regulations: The Federal rules restrict any use of the information to criminally investigate or prosecute any alcohol or drug abuse patient.[facility] the event this information is protected by the Federal Confidentiality of Alcohol and Drug Abuse Patient Records regulations: The Federal rules restrict any use of the information to criminally investigate or prosecute any alcohol or drug abuse patient.[facility] the event this information is protected by the Federal Confidentiality of Alcohol and Drug Abuse Patient Records regulations: The Federal rules restrict any use of the information to criminally investigate or prosecute any alcohol or drug abuse patient.[facility] the event this information is protected by the Federal Confidentiality of Alcohol and Drug Abuse Patient Records regulations: The Federal rules restrict any use of the information to criminally investigate or prosecute any alcohol or drug abuse patient.[facility] the event this information is protected by the Federal Confidentiality of Alcohol and Drug Abuse Patient Records regulations: The Federal rules restrict any use of the information to criminally investigate or prosecute any alcohol or drug abuse patient.[facility] the event this information is protected by the Federal Confidentiality of Alcohol and Drug Abuse Patient Records regulations: The Federal rules restrict any use of the information to criminally investigate or prosecute any alcohol or drug abuse patient.[facility]In the event this information is protected by the Federal Confidentiality of Alcohol and Drug Abuse Patient Records regulations: The Federal rules restrict any use of the information to criminally investigate or prosecute any alcohol or drug abuse patient.[facility] the event this information is protected by the Federal Confidentiality of Alcohol and Drug Abuse Patient Records regulations: The Federal rules restrict any use of the information to criminally investigate or prosecute any alcohol or drug abuse patient.[facility] the event this information is protected by the Federal Confidentiality of Alcohol and Drug Abuse Patient Records regulations: The Federal rules restrict any use of the information to criminally investigate or prosecute any alcohol or drug abuse patient.[facility] the event this information is protected by the Federal Confidentiality of Alcohol and Drug Abuse Patient Records regulations: The Federal rules restrict any use of the information to criminally investigate or prosecute any alcohol or drug abuse patient.[facility] the event this information is protected by the Federal Confidentiality of Alcohol and Drug Abuse Patient Records regulations: The Federal rules restrict any use of the information to criminally investigate or prosecute any alcohol or drug abuse patient.[facility] Reason for Visit (unrecogniz ed section and content) Reason Comments Menstrual Problem Reason Comments Telemedicine Reason Onset Date Comments Refill Request 03/10/2022 Reason Comments Pre-Op Visit Reason Comments Insurance Authorization Reason Comments Post Op Reason Onset Date Comments Breast Problem Left breast Radiology Mammogram 06/10/2022 at [facility] Reason Comments Radiology US Specialty Diagnoses / Procedures Referred By Contac t Referred To Contact BR IMAGING Diagnoses Mass of lower outer quadrant of left breast Procedures US BREAST LTD LT US BREAST UNI REAL TIME WITH IMAGE LIMITED Lila Bull, MANAGER MOBILE.TRANSMISSION SUPERINTENDENT [address] [place] [address] Br Imaging [address] [place] [address] Referral ID Status Reason Start Date Expiration Date V isits Requested Visits Authorized [id number] Closed Auto-Generate d Referral 06/10/2022 07/10/2023 1 1 Reason Comments Nasal Congestion drainage x 3 days Reason Comments Physical vaccines: Hep B and covid needed Reason Comments Refill Request Reason Comments FYI-No Action Needed positive for covid -19 11/04/22 Reason Comments Back Pain With burning with ur ination x 5 days Reason Comments Depression Reason Comments Follow Up 6 week follow up-moo d,prozac Reason Comments Breast Problem Left breast same as last year but painfull Reason Comments Cough Congestion, L ear pa in x3 days Reason Comments Anesthesia Consult Care Teams (unrecognized sec tion and content) Electric Motor And Generator Assembler Relationship Specialty Start Date End Date Karlee Hooper MD [address] [place], [place] [id number] PCP - General Internal Medicine 08/21/14 Electric Motor And Generator Assembler Relationship Specialty Start Date End Date Karlee Hooper MD [address] [place], [place] [id number] PCP - General Internal Medicine 08/21/14 Electric Motor And Generator Assembler Relationship Specialty Start Date End Date Karlee Hooper MD [address] [place], [place] [id number] PCP - General Internal Medicine 08/21/14 Electric Motor And Generator Assembler Relationship Specialty Start Date End Date Karlee Hooper MD [address] [place] [address] PCP - General Internal Medicine 08/21/14 Electric Motor And Generator Assembler Relationship Specialty Start Date End Date Karlee Hooper MD [address] [place] [address] PCP - General Internal Medicine 08/21/14 Electric Motor And Generator Assembler Relationship Specialty Start Date End Date Karlee Hooper MD [address] [place] [address] PCP - General Internal Medicine 08/21/14 Electric Motor And Generator Assembler Relationship Specialty Start Date End Date Karlee Hooper MD [address] [place] [address] PCP - General Internal Medicine 08/21/14 Electric Motor And Generator Assembler Relationship Specialty Start Date End Date Karlee Hooper MD [address] [place] [address] PCP - General Internal Medicine 08/21/14 Electric Motor And Generator Assembler Relationship Specialty Start Date End Date Karlee Hooper MD [address] [place] [address] PCP - General Internal Medicine 08/21/14 Electric Motor And Generator Assembler Relationship Specialty Start Date End Date Karlee Hooper MD [address] [place] [address] PCP - General Internal Medicine 08/21/14 Electric Motor And Generator Assembler Relationship Specialty Start Date End Date Karlee Hooper MD [address] [place] [address] PCP - General Internal Medicine 08/21/14 Electric Motor And Generator Assembler Relationship Specialty Start Date End Date Karlee Hooper MD [address] [place] [address] PCP - General Internal Medicine 08/21/14 Electric Motor And Generator Assembler Relationship Specialty Start Date End Date Karlee Hooper MD [address] [facility] [place] [place] [address] PCP - General Internal Medicine 08/21/14 Electric Motor And Generator Assembler Relationship Specialty Start Date End Date Karlee Hooper MD [address] [facility] [place] [place] [address] PCP - General Internal Medicine 08/21/14 Electric Motor And Generator Assembler Relationship Specialty Start Date End Date Karlee Hooper MD [address] [facility] [place] [place] [address] PCP - General Internal Medicine 08/21/14 Electric Motor And Generator Assembler Relationship Specialty Start Date End Date Karlee Hooper MD [address] [facility] [place] [place] [address] PCP - General Internal Medicine 08/21/14 Electric Motor And Generator Assembler Relationship Specialty Start Date End Date Karlee Hooper MD [address] [facility] [place] [place] [address] PCP - General Internal Medicine 08/21/14 Electric Motor And Generator Assembler Relationship Specialty Start Date End Date Karlee Hooper MD [address] [facility] [place] [place] [address] PCP - General Internal Medicine 08/21/14 Electric Motor And Generator Assembler Relationship Specialty Start Date End Date Karlee Hooper MD [address] [facility] [place] [place] [address] PCP - General Internal Medicine 08/21/14 Electric Motor And Generator Assembler Relationship Specialty Start Date End Date Karlee Hooper MD [address] [facility] [place] [place] [address] PCP - General Internal Medicine 08/21/14 Electric Motor And Generator Assembler Relationship Specialty Start Date End Date Karlee Hooper MD [address] [facility] [place] [address] PCP - General Internal Medicine 08/21/14 Electric Motor And Generator Assembler Relationship Specialty Start Date End Date Karlee Hooper MD [address] [facility] [address] PCP - General Internal Medicine 08/21/14 Electric Motor And Generator Assembler Relationship Specialty Start Date End Date Karlee Hooper MD [address] [facility] [address] PCP - General Internal Medicine 08/21/14 Electric Motor And Generator Assembler Relationship Specialty Start Date End Date Karlee Hooper MD [address] [facility] [address] PCP - General Internal Medicine 08/21/14 INFORMATION SOURCE (unrecogn ized section and content) DATE CREATED AUTHOR [facility] 10/19/2023 [facility] [place] FOR RECORDS PERTAINING TO PATIENTS WHO ARE OR HAVE BEEN ENROLLED IN A CHEMICAL DEPENDENCY/SUBSTANCEABUSE PROGRAM, SOME INFORMATION MAY BE OMITTED. This clinical summary was aggregated from multiple sources. Caution should be exercised in using it in the provision of clinical care. This summary normalizes information from multiple sources, and as a consequence, information in this document may materially change the coding, format and clinical context of patient data. In addition, data may be omitted in some cases. CLINICAL DECISIONS SHOULD BE BASED ON THE PRIMARY CLINICAL RECORDS. [employer] provides no warranty or guarantee of the accuracy or completeness of information in this document.
[2023-11-30 22:56] VITALS: BP 114/75; PULSE 92; RESP 16; TEMP 35.8; O2SAT 99
== END 2023-11-30 22:57 | disposition home or self-care (01) ==
LOC: ED 22:49
PROVIDERS: Emergency Provider Student in an Organized Health Care Education/Training Program; PCP Internal Medicine; Visit Provider Student in an Organized Health Care Education/Training Program
DX: S93.401A Sprain of unspecified ligament of right ankle, initial encounter (principal); X50.1XXA Overexertion from prolonged static or awkward postures, initial encounter; Z79.899 Other long term (current) drug therapy
CPT/HCPCS: 73610; 99283

== ENCOUNTER 2024-03-09 13:10 | Emergency (ER) | payer MEDICAID, SELFPAY ==
[2024-03-09 13:11] VITALS: BP 112/83; PULSE 89; RESP 16; TEMP 36.8; O2SAT 100; BMI 26.4
--- NOTE | 2024-03-09 13:33 | RAD_ITS ---
INDICATION: 4th and 5th toe injury EXAMINATION/TECHNIQUE: X-RAY - LEFT XR Foot Min 3 Views 3 VIEWS COMPARISON: No relevant prior comparison study available FINDINGS: SOFT TISSUES: No soft tissue swelling or gas. No radiopaque foreign body. BONES/JOINTS: No acute fracture or subluxation.. Normal alignment. Preservation of the joint space.. No sclerotic or destructive changes observed. RAD/Foot min 3 Views IMPRESSION: No evidence of acute fracture or dislocation. Electronically Signed: Shadi Gatica MD at 13:51 EDT ,
--- NOTE | 2024-03-09 13:34 | EDS_ITS ---
<Statement entered by Valerie Wlalis MD - 03/09/24 18:13> I have personally performed a face to face assessment of the patient and have reviewed the [facility]CRATES Note. Patient presents secondary to left foot injury. She reportedly got up around 4 AM this morning to go the bathroom and hit her foot against the wall. She has pain to the fourth and fifth toes of her left foot. Patient sitting upright in bed no acute distress. Nontoxic-appearing. Lower extremity examination reveals mild tenderness along the MTP joint of the left fourth and fifth toes. No significant edema. No erythema or ecchymosis at this time. Good cap refill and sensation. Good pulses. No tenderness over the calcaneus or ankle. Left foot x-rays obtained and revealed no evidence of acute fracture. Patient will continue supportive care. HPI History of Present Illness Chief Complaint: Lower Extremity Injury Narrative Narrative: Patient presenting today with pain to her left fourth and fifth toes after an injury that occurred last night. She had gotten up in the middle of the night to use the bathroom and accidentally hit her toes against the wall. She has had pain with ambulation. She denies any other injury. [facility] Medical History Wears glasses Cancer Restless legs Bilateral headaches Anxiety and depression Environmental allergies Home Medications ?Medication ?Instructions ?Recorded ?Last Taken ?Type buspirone 5 mg tablet 5 mg PO TID PRN Anxiety 08/04/18 08/04/18 08:00 History fluoxetine 10 mg capsule (Prozac) 10 mg PO DAILY anxiety 08/04/18 08/04/18 08:00 History biotin 1 mg capsule 1 mg PO DAILY 04/15/22 Unknown History cholecalciferol (vitamin D3) 25 25 mcg PO DAILY 04/15/22 Unknown History mcg (1,000 unit) capsule (Vitamin D3) fluticasone propionate 50 1 spray intranasal DAILY 04/15/22 Unknown History mcg/actuation nasal spray,suspension Allergy/AdvReac Type Severity Reaction Status Date / Time amoxicillin (Amoxicillin) Allergy Anaphylaxis Verified 03/09/24 13:12 Cephalosporins Allergy Itching Verified 03/09/24 13:12 loratadine (From Claritin) Allergy Rash Verified 03/09/24 13:12 Penicillins Allergy Anaphylaxis Verified 03/09/24 13:12 Family History Other Asthma Cancer Surgical History Hx of adenoidectomy Hx of tonsillectomy History of tubal ligation Social History Smoking Status: Never smoker alcohol intake: never substance use type: does not use what type of physical activity do you participate in: none ROS ROS ED Constitutional Constitutional ED: Denies chills or fever(s) Cardiovascular Cardiovascular: Denies chest pain Respiratory/Chest Respiratory/Chest: Denies dyspnea Gastrointestinal Gastrointestinal: Denies abdominal pain Musculoskeletal Musculoskeletal: Reports arthralgias Integumentary Denies Abrasions Neurologic Neurologic: Denies paresthesias EXAM Physical Exam Const Vital Signs: 03/09/24 13:11 03/09/24 14:51 Temperature 98.2 F 98.4 F Temperature Source Temporal Pulse Rate 89 86 Respiratory Rate 16 16 Blood Pressure 112/83 H 110/77 Blood Pressure Mean 92 88 Pulse Ox 100 99 Oxygen Delivery Method Room Air Positive well nourished, well developed and no apparent distress General Appearance ED: well developed HEENT Reports normocephalic and head/scalp atraumatic Mouth ED: Yes moist mucous membranes normal Eyes PERRL and EOMs intact bilaterally Neck full ROM and supple Chest Wall inspection of chest normal Resp normal respiratory effort and clear to auscultation bilaterally Cardio regular rate and regular rhythm Back/Spine normal ROM and normal to inspection Extremity normal to inspection Extremity Narrative: Limited range of motion to the left fourth and fifth toes due to pain. No bruising or edema. Neurovascularly intact. Neuro oriented x3, CN's II-XII intact bilaterally, moves all extremities, no focal motor deficits and no sensory deficits noted Sensorium / Orientation: awake and alert Psych mental status grossly normal and thought process normal Skin no rashes or lesions noted and no wounds MDM MDM MDM Narrative Medical decision making narrative: Patient presenting with pain to her left fourth and fifth toes after hitting them against the wall last night. She is able to ambulate. She has pain to palpation to these toes with no bruising or abrasions. X-ray obtained and is negative for fracture. I did offer analgesia, she declines. RICE instructions were discussed, she can alternate Tylenol and ibuprofen as needed for pain. She will be discharged home in stable condition. Radiography X-Ray: Read by ED Physician Diagnostic Testing: Clinical Impression(s) from Imaging Studies Foot X-Ray 03/09/24 13:33 IMPRESSION: No evidence of acute fracture or dislocation. Electronically Signed: Shadi Gatica MD at 13:51 EDT , Discharge Plan Triage Chief Complaint: Lower Extremity Injury ED Midlevel Provider: Carolyn Frazier ED Provider: Valerie Wallis Dx/Rx/DC Orders Clinical Impression: Contusion, toes Instructions: ED Finger or Toe Contusion Prescriptions: No Action buspirone 5 MG tablet 5 mg PO TID PRN (Reason: Anxiety) fluoxetine [Prozac] 10 MG capsule 10 mg PO DAILY fluticasone propionate 50 mcg/actuation [place],Suspension 1 spray INTRANASAL DAILY Rx Instructions: administer into each nostril cholecalciferol (vitamin D3) [Vitamin D3] 25 mcg (1,000 unit) Capsule 25 mcg PO DAILY biotin 1 mg Capsule 1 mg PO DAILY Primary Care Provider: Karlee Pack Referrals: Karlee Pack MD [Primary Care Provider] - 1 Week if not improving Activity Restrictions/Additional Instructions: You can alternate Tylenol and ibuprofen as needed for your pain. Print Language: Austrian Disposition Disposition: Home, Self Care Discharge Date/Time: 03/09/24 14:51
[2024-03-09 14:51] VITALS: BP 110/77; PULSE 86; RESP 16; TEMP 36.9; O2SAT 99
== END 2024-03-09 14:51 | disposition home or self-care (01) ==
PROVIDERS: Emergency Provider Emergency Medicine; PCP Internal Medicine; Visit Provider Emergency Medicine
DX: S90.32XA Contusion of left foot, initial encounter (principal); W22.01XA Walked into wall, initial encounter; F32.A Depression, unspecified; F41.9 Anxiety disorder, unspecified; Z79.899 Other long term (current) drug therapy
CPT/HCPCS: 73630; 99282

== ENCOUNTER 2024-07-16 19:49 | Emergency (ER) | payer MEDICAID, SELFPAY ==
[2024-07-16 19:49] VITALS: BP 102/83; PULSE 108; RESP 16; TEMP 36.6; O2SAT 100; BMI 28.5
--- NOTE | 2024-07-16 20:43 | EX.ED.DYSGE1 ---
HPI History of Present Illness Chief Complaint: Chest Other Detail of Chief Complaint: Left-sided chest pain no epigastric pain Informant: patient Onset/Context/Timing Onset: Days (Chest pain Tuesday night until Tuesday morning, presently having epigastric pain) Context: Sudden Onset Timing: Intermittent Quality: Sharp Location: Left anterior chest and epigastric Current Severity: Mild Maximum Severity: Moderate Worsened by: Palpation Relieved by: Nothing Associated Symptoms Associated Symptoms: None and no radiation Narrative Narrative: Patient is a 33-year-old woman with history of reflux and depression who presents with chest pain that started Tuesday into Tuesday morning. Describes sharp left anterior with no radiation and no associated symptoms. Patient has no history of PE or DVT. She has no risk factors for PE or DVT. Patient [place] leg pain, swelling discoloration. She denies intolerance to greasy or fried foods. There is no family history of cholelithiasis. She denies black or maroon-colored stool Prior similar symptoms: No Recent Illness/Hospitalization: No PFSH PFSH Medical History Wears glasses Cancer Restless legs Bilateral headaches Anxiety and depression Environmental allergies Home Medications ?Medication ?Instructions ?Recorded ?Last Taken ?Type buspirone 5 mg tablet 5 mg PO TID PRN Anxiety 08/04/18 08/04/18 08:00 History fluoxetine 10 mg capsule (Prozac) 10 mg PO DAILY anxiety 08/04/18 08/04/18 08:00 History biotin 1 mg capsule 1 mg PO DAILY 04/15/22 Unknown History cholecalciferol (vitamin D3) 25 25 mcg PO DAILY 04/15/22 Unknown History mcg (1,000 unit) capsule (Vitamin D3) fluticasone propionate 50 1 spray intranasal DAILY 04/15/22 Unknown History mcg/actuation nasal spray,suspension omeprazole 40 mg capsule,delayed 40 mg PO DAILY #30 caps 07/16/24 Unknown Rx release Allergy/AdvReac Type Severity Reaction Status Date / Time amoxicillin (Amoxicillin) Allergy Anaphylaxis Verified 07/16/24 19:49 Cephalosporins Allergy Itching Verified 07/16/24 19:49 loratadine (From Claritin) Allergy Rash Verified 07/16/24 19:49 Penicillins Allergy Anaphylaxis Verified 07/16/24 19:49 Family History Other Asthma Cancer Surgical History Hx of adenoidectomy Hx of tonsillectomy History of tubal ligation Social History Smoking Status: Never smoker alcohol intake: never substance use type: does not use what type of physical activity do you participate in: none ROS ROS ED Constitutional Constitutional ED: Denies chills, fever(s), subjective or sweats Cardiovascular Cardiovascular: Reports chest pain; Denies orthopnea, palpitations or racing heartbeat Respiratory/Chest Respiratory/Chest: Denies cough, dyspnea, dyspnea on exertion or orthopnea Gastrointestinal Gastrointestinal: Reports abdominal pain; Denies constipation, diarrhea, melena, nausea or vomiting Musculoskeletal Musculoskeletal: Denies back pain or neck pain Hematologic/Lymphatic Hematologic/Lymphatic: Reports systems reviewed and no addt'l complaints, except as documented EXAM Physical Exam Const Vital Signs: 07/16/24 19:49 07/16/24 20:53 07/16/24 21:49 Temperature 97.8 F Temperature Source Temporal Pulse Rate 108 H 73 Respiratory Rate 16 Respiratory Effort Normal Non-Labored Blood Pressure 102/83 H 124/76 H Blood Pressure Mean 89 92 Pulse Ox 100 Positive well nourished and well developed General Appearance ED: well developed and NAD; Negative for cyanotic, diaphoretic or pallor HEENT Reports moist mucous membranes HEENT Narrative: Head is atraumatic normocephalic. Nares patent. Mucosa moist. Eyes PERRL and EOMs intact bilaterally General Eye ED: Negative for pale conjunctiva or scleral icterus Neck no lymphadenopathy, supple and no JVD Neck Narrative: Trachea is midline. There is no dysphonia. Chest Wall palpation of chest normal Resp normal respiratory effort and clear to auscultation bilaterally Cardio regular rate, regular rhythm, S1 normal heart sound, S2 normal heart sound and no murmurs GI normal to inspection, nondistended, normoactive bowel sounds and no masses; Negative for non-tender, non-distended or hepatosplenomegaly GI Narrative: There is epigastric pain. Negative clinical Momin sign. No hepatosplenomegaly. Back/Spine no CVA tenderness Extremity normal to inspection Extremity Narrative: There is no asymmetry, swelling, discoloration, leg vein distention, palpable cords or tenderness along the distribution of the deep venous system. Neuro oriented x3 and CN's II-XII intact bilaterally Sensorium / Orientation: alert Psych mental status grossly normal Skin no rashes or lesions noted, no wounds and skin turgor normal General Skin Exam: elasticity normal; Negative for jaundice or pallor MDM MDM MDM Narrative Medical decision making narrative: With the heartburn epigastric pain is reproducible will treat with GI cocktail and Pepcid. History is not consistent with cardiac disease, pneumonia, pulmonary embolus. Of note review of prior records indicate patient has history of anxiety. History & Record Review Additional record(s) reviewed:: Prior outpatient record Treatment and Re-Evaluation :: Patient was reassessed the patient 2155. She has slight discomfort in epigastric area. Plan is to discharge a prescription for omeprazole. If he is not better in 2 weeks follow-up with Dr. Lizarraga and possible GI referral Discharge Plan Triage Chief Complaint: Chest Other ED Provider: Maxx Silvao Dx/Rx/DC Orders Clinical Impression: Acute epigastric pain, Heartburn, Left-sided chest pain Instructions: ED Epigastric Pain Uncertain Cause Prescriptions: New omeprazole 40 mg capsule,delayed release(DR/EC) 40 mg PO DAILY Qty: 30 0RF No Action buspirone 5 MG tablet 5 mg PO TID PRN (Reason: Anxiety) fluoxetine [Prozac] 10 MG capsule 10 mg PO DAILY fluticasone propionate 50 mcg/actuation [place],Suspension 1 spray INTRANASAL DAILY Rx Instructions: administer into each nostril cholecalciferol (vitamin D3) [Vitamin D3] 25 mcg (1,000 unit) Capsule 25 mcg PO DAILY biotin 1 mg Capsule 1 mg PO DAILY Primary Care Provider: Karlee Pack Referrals: Karlee Pack MD [Primary Care Provider] - 1-2 Weeks Print Language: Ukrainian Disposition Disposition: Home, Self Care
[2024-07-16] MEDS: Mag Hydrox/Al Hydrox/Simeth 30 ML UDC PO (20:47)
[2024-07-16] MEDS: Lidocaine 2% Viscous15 ML UDC 15 ML PO (20:47)
[2024-07-16] MEDS: Famotidine 200 MG/20 ML MDV 20 MG in 0.9% Normal Saline (Pres. free 8 ML 300 MG IV (20:49)
[2024-07-16 21:49] VITALS: BP 124/76; PULSE 73
[2024-07-16 21:57] VITALS: BP 124/76; PULSE 73; RESP 16; TEMP 35.5; O2SAT 98
== END 2024-07-16 22:04 | disposition home or self-care (01) ==
PROVIDERS: Emergency Provider Emergency Medicine; PCP Internal Medicine; Visit Provider Emergency Medicine
DX: R07.89 Other chest pain (principal); R12 Heartburn
CPT/HCPCS: 96374; 99283; A4216; J3490